=== PATIENT | male | born 1940 | race Caucasian/White ===

== ENCOUNTER → 2019-09-01 10:49 | Outpatient (BNVA) | payer MEDICARE, OTHER, SELFPAY | PROVIDERS: Family Provider Family Medicine; PCP Family Medicine; Visit Provider Urology | DX: N13.8 Other obstructive and reflux uropathy (principal); N40.1 Benign prostatic hyperplasia with lower urinary tract symptoms | CPT/HCPCS: 81001 ==

== ENCOUNTER → 2019-09-21 10:03 | Outpatient (BNVA) | payer MEDICARE, OTHER, SELFPAY | PROVIDERS: Family Provider Family Medicine; PCP Family Medicine; Visit Provider Registered Nurse | DX: I10 Essential (primary) hypertension (principal); E78.5 Hyperlipidemia, unspecified | CPT/HCPCS: 80053; 80061; 85025 ==

== ENCOUNTER → 2020-01-07 11:33 | Outpatient (BNVA) | payer MEDICARE, OTHER, SELFPAY | PROVIDERS: Family Provider Family Medicine; PCP Family Medicine; Visit Provider Nurse Practitioner Family | DX: R50.9 Fever, unspecified (principal); R05 Cough | CPT/HCPCS: 87635 ==

== ENCOUNTER 2020-01-15 14:18 | Emergency (ER) | payer MEDICARE, OTHER, SELFPAY ==
[2020-01-15] VITALS (11 sets, daily range): BP systolic 99–140; BP diastolic 69–120; PULSE 100–141; RESP 14–30; TEMP 36.9; O2SAT 88–100; BMI 24.4
--- NOTE | 2020-01-15 14:26 | ED_ITS ---
HPI - SOB/Dyspnea General: Chief Complaint: Shortness of Breath/Dyspnea Stated Complaint: COVID POS; RESP DISTRESS Time Seen by Provider: 01/15/20 14:25 History of Present Illness: HPI Narrative: 79-year-old male presents presents via EMS 1 week ago he tested positive for COVID he has been very short of breath. Satting into the mid 80s. He is symptomatically short of breath. He is in A. fib with RVR. He has had this in the past. He has also had a lot of diarrhea he has been able to take fluids well. MD elicited complaint: shortness of breath and cough Pertinent past history: other (COVID-19 infection) Onset (ago): week(s) (1) Context: other (COVID-19) Timing: constant Severity: severe Exacerbating factors: exertion Relieving factors: oxygen and rest Associated symptoms: Reports chest congestion, cough, fever(s) and nausea; Deny abdominal pain, chest pain, diaphoresis, dizziness, extremity pain, hemoptysis, lightheadedness, myalgias, orthopnea, palpitations, paresthesias, polydipsia, polyuria, rash, sense of impending doom, syncope or vomiting Treatment prior to arrival: oxygen Review of Systems Const: Reports: fever(s); Denies: diaphoresis ENMT: Denies: throat pain, ear or mastoid pain, nasal discharge or nasal congestion Card: Denies: chest pain, palpitations, lightheadedness, syncope or orthopnea Resp: Reports: dyspnea, productive cough, wheezing and chest congestion; Denies: hemoptysis GI: Reports: nausea; Denies: abdominal pain or vomiting : Denies: flank pain, dysuria, urinary frequency or urinary urgency Musc: Denies: extremity pain Skin/Breast: Denies: rash or pruritus Neuro: Denies: dizziness Endo: Denies: polyuria or polydipsia PFSH ED PFSH: Medical History BPH (benign prostatic hyperplasia) Coronary artery disease Essential hypertension Hyperlipidemia Obstructive sleep apnea Surgical History Hx of heart artery stent Hx of tonsillectomy Family History Mother , at age 65 Heart disease Father , in WW 2 No problems noted. Social History Smoking and tobacco status: never smoked Alcohol intake: never Marital status: Current occupational status: retired History of recent travel: No Physical Exam Const: GENERAL APPEARANCE: cooperative and comfortable ORIENTATION/CONSCIOUSNESS: Yes awake, Yes oriented to person, Yes oriented to place and Yes oriented to time HENMT: COMMON NORMALS: normocephalic, atraumatic and hearing grossly normal bilaterally HEAD & SCALP: normocephalic and atraumatic Neck/C-Spine: COMMON NORMALS: no JVD Lymph: LYMPHATIC: no lymphadenopathy noted and no lymphedema noted Resp: EFFORT & INSPECTION: No able to speak in complete sentences, Yes tachypneic, Yes labored, Yes retractions and Yes uses accessory muscles AUSCULTATION: rhonchi and wheezes Cardio: COMMON NORMALS: no JVD and No murmurs present (Cardio) RATE: tachycardic RHYTHM: abnormal rhythm irregularly irregular GI: COMMON NORMALS: Soft to palpation and No hepatosplenomegaly present AUSCULTATION: Yes normoactive bowel sounds PALPATION: Yes Soft to palpation, No Tenderness to palpation present (GI), No Guarding due to palpation present (GI) and Yes No hepatosplenomegaly present Extremity: COMMON NORMALS: normal to inspection, capillary refill normal, no clubbing, cyanosis or edema, no calf tenderness and no pedal edema Neuro: SENSORIUM/ORIENTATION: Yes oriented to person, Yes oriented to place and Yes oriented to time Skin: COMMON NORMALS: no rashes or lesions noted GENERAL SKIN EXAM: no rashes or lesions noted Procedures Intubation Time out performed: Yes sedative: Etomidate paralytic: Succinylcholine Laryngoscope: fiber optic video scope Assist Device Used: fiber optic device ET Tube Size: 8 ET Tube Uncuffed: No Tube Secured Depth (cm): 22 Tube Secured Location: teeth Tube Placement Confirmation: visualized tube passing through cords, equal breath sounds bilaterally and no breath sounds over epigastrium Patient Tolerated Procedure: well Intubation Complications: none Course Vital Signs: Vital signs: Vital Signs Temperature 98.4 F 01/15/20 14:36 Pulse Rate 141 H 01/15/20 21:50 Respiratory Rate 21 H 01/15/20 21:50 Blood Pressure 115/69 01/15/20 21:50 Pulse Oximetry 95 01/15/20 21:50 MDM - SOB/Dyspnea Lab Data: Labs: Lab Results 01/15/20 01/15/20 01/15/20 Range/Units 13:45 13:45 13:45 WBC 22.9 H (4.0-10.0) 10^3/ uL RBC 4.70 (4.1-5.3) 10^6/u L Hgb 14.6 (11.7-16.6) g/dL Hct 42.2 (42.0-52.0) % MCV 89.8 (80-94) fL MCH 31.1 (28.0-34.0) pg MCHC 34.6 (30.0-36.0) g/dL RDW 12.3 (12.1-15.1) % Plt Count 332 (130-400) 10^3/c mm MPV 10.4 (7.4-10.4) fL Neut % (Auto) 91.5 % Lymph % (Auto) 2.1 % [place] % (Auto) 4.8 % Eos % (Auto) 0.0 % Baso % (Auto) 0.3 % Neut # (Auto) 20.96 H (1.8-7.7) 10^3/u L Lymph # (Auto) 0.5 L (0.8-4.8) 10^3/u L [place] # (Auto) 1.1 H (0.2-0.9) 10^3/u L Eos # (Auto) 0.0 (0.0-0.8) 10^3/u L Baso # (Auto) 0.1 (0.0-0.1) 10^3/u L Nucleated RBC % (a uto) 0 % Nucleated RBCs # 0.0 /100WBC PT 16.00 H (12.1-14.9) SECO NDS INR 1.24 H (0.8-1.2) APTT 37.4 H (23.9-36.7) SECO NDS Fibrinogen 996 H (174-498) mg/dL D-Dimer 2.22 H (0-0.59) ug/mIFE U Specimen Type Sample Site ABG pH (7.35-7.45) ABG pCO2 (35-45) mmHg ABG pO2 (80.0-100.0) mmH g ABG HCO3 (22-26) mmol/L ABG O2 Saturation ABG Base Excess (-2.0-2.0) mmol/ L Eber Test A-a O2 Gradient (5-10) mmHg Hematocrit (42-52) % Hgb O2 Saturation (95-100) % Carboxyhemoglobin (0.4-20.1) %THgb Methemoglobin (0.4-1.5) % Total Hemoglobin (14-18) g/dL Ionized Calcium (1.1-1.4) mmol/L O2 Delivery Device O2 Liters/Min % FiO2 % General Practitioner ID Sodium 130 L (136-145) mmol/L Potassium 3.9 (3.5-5.1) mmol/L Chloride 95 L (98-107) mmol/L Carbon Dioxide 17 L (22-29) mmol/L Anion Gap 21.9 H (5-19) BUN 34 H (8-23) mg/dL Creatinine 1.1 (0.7-1.2) mg/dL GFR Calculation Not Reportable Glucose 142 H (65-115) mg/dL Calculated Osmolal ity 280 L (285-295) mOsm/k g Lactic Acid (0.5-2.2) mmol/L Lactic Acid (Sepsi s) (0.5-2.2) mmol/L Calcium 9.0 (8.5-10.5) mg/dL Total Bilirubin 0.6 (0.15-1.2) mg/dL AST 137 H (0-40) U/L ALT 132 H (0-41) U/L Alkaline Phosphata se 103 (40-130) IU/L Lactate Dehydrogen ase 518 H (135-225) U/L Troponin T Baselin e (0-15) ng/L Troponin T 120 Min emmonak (0-15) ng/L Delta Troponin T (0-10) ABS# C-Reactive Protein 381.3 H (0.0-4.9) mg/L Total Protein 6.5 L (6.6-8.7) g/dL Albumin 3.0 L (3.5-5.2) g/dL Globulin 3.5 (1.3-4.6) g/dL Procalcitonin 2.61 H (0-0.5) ng/mL 01/15/20 01/15/20 01/15/20 Range/Units 14:20 14:50 15:30 WBC (4.0-10.0) 10^3/ uL RBC (4.1-5.3) 10^6/u L Hgb (11.7-16.6) g/dL Hct (42.0-52.0) % MCV (80-94) fL MCH (28.0-34.0) pg MCHC (30.0-36.0) g/dL RDW (12.1-15.1) % Plt Count (130-400) 10^3/c mm MPV (7.4-10.4) fL Neut % (Auto) % Lymph % (Auto) % [place] % (Auto) % Eos % (Auto) % Baso % (Auto) % Neut # (Auto) (1.8-7.7) 10^3/u L Lymph # (Auto) (0.8-4.8) 10^3/u L [place] # (Auto) (0.2-0.9) 10^3/u L Eos # (Auto) (0.0-0.8) 10^3/u L Baso # (Auto) (0.0-0.1) 10^3/u L Nucleated RBC % (a uto) % Nucleated RBCs # /100WBC PT (12.1-14.9) SECO NDS INR (0.8-1.2) APTT (23.9-36.7) SECO NDS Fibrinogen (174-498) mg/dL D-Dimer (0-0.59) ug/mIFE U Specimen Type Arterial Arterial Sample Site Radial, right Radial, right ABG pH 7.54 H 7.56 H (7.35-7.45) ABG pCO2 24.1 L 23.4 L (35-45) mmHg ABG pO2 52.8 L 73.2 L (80.0-100.0) mmH g ABG HCO3 20.6 L 21.1 L (22-26) mmol/L ABG O2 Saturation 93.7 ABG Base Excess -0.2 0.7 (-2.0-2.0) mmol/ L Eber Test Pos Pos A-a O2 Gradient 32.5 H (5-10) mmHg Hematocrit 45.8 43.3 (42-52) % Hgb O2 Saturation 92.7 L (95-100) % Carboxyhemoglobin 0.3 L (0.4-20.1) %THgb Methemoglobin 0.8 (0.4-1.5) % Total Hemoglobin 14.1 (14-18) g/dL Ionized Calcium 1.1 (1.1-1.4) mmol/L O2 Delivery Device Nc Bipap O2 Liters/Min 5.0 % FiO2 50.0 % General Practitioner ID Broma Broma Sodium 130.0 L (136-145) mmol/L Potassium 3.9 (3.5-5.1) mmol/L Chloride (98-107) mmol/L Carbon Dioxide (22-29) mmol/L Anion Gap (5-19) BUN (8-23) mg/dL Creatinine (0.7-1.2) mg/dL GFR Calculation Glucose 130.0 H (65-115) mg/dL Calculated Osmolal ity (285-295) mOsm/k g Lactic Acid 3.6 H (0.5-2.2) mmol/L Lactic Acid (Sepsi s) (0.5-2.2) mmol/L Calcium (8.5-10.5) mg/dL Total Bilirubin (0.15-1.2) mg/dL AST (0-40) U/L ALT (0-41) U/L Alkaline Phosphata se (40-130) IU/L Lactate Dehydrogen ase (135-225) U/L Troponin T Baselin e (0-15) ng/L Troponin T 120 Min [place] (0-15) ng/L Delta Troponin T (0-10) ABS# C-Reactive Protein (0.0-4.9) mg/L Total Protein (6.6-8.7) g/dL Albumin (3.5-5.2) g/dL Globulin (1.3-4.6) g/dL Procalcitonin (0-0.5) ng/mL 01/15/20 01/15/20 01/15/20 Range/Units 17:54 17:54 19:20 WBC (4.0-10.0) 10^3/ uL RBC (4.1-5.3) 10^6/u L Hgb (11.7-16.6) g/dL Hct (42.0-52.0) % MCV (80-94) fL MCH (28.0-34.0) pg MCHC (30.0-36.0) g/dL RDW (12.1-15.1) % Plt Count (130-400) 10^3/c mm MPV (7.4-10.4) fL Neut % (Auto) % Lymph % (Auto) % [place] % (Auto) % Eos % (Auto) % Baso % (Auto) % Neut # (Auto) (1.8-7.7) 10^3/u L Lymph # (Auto) (0.8-4.8) 10^3/u L [place] # (Auto) (0.2-0.9) 10^3/u L Eos # (Auto) (0.0-0.8) 10^3/u L Baso # (Auto) (0.0-0.1) 10^3/u L Nucleated RBC % (a uto) % Nucleated RBCs # /100WBC PT (12.1-14.9) SECO NDS INR (0.8-1.2) APTT (23.9-36.7) SECO NDS Fibrinogen (174-498) mg/dL D-Dimer (0-0.59) ug/mIFE U Specimen Type Sample Site ABG pH (7.35-7.45) ABG pCO2 (35-45) mmHg ABG pO2 (80.0-100.0) mmH g ABG HCO3 (22-26) mmol/L ABG O2 Saturation ABG Base Excess (-2.0-2.0) mmol/ L Eber Test A-a O2 Gradient (5-10) mmHg Hematocrit (42-52) % Hgb O2 Saturation (95-100) % Carboxyhemoglobin (0.4-20.1) %THgb Methemoglobin (0.4-1.5) % Total Hemoglobin (14-18) g/dL Ionized Calcium (1.1-1.4) mmol/L O2 Delivery Device O2 Liters/Min % FiO2 % General Practitioner ID Sodium (136-145) mmol/L Potassium (3.5-5.1) mmol/L Chloride (98-107) mmol/L Carbon Dioxide (22-29) mmol/L Anion Gap (5-19) BUN (8-23) mg/dL Creatinine (0.7-1.2) mg/dL GFR Calculation Glucose (65-115) mg/dL Calculated Osmolal ity (285-295) mOsm/k g Lactic Acid (0.5-2.2) mmol/L Lactic Acid (Sepsi s) 2.9 H (0.5-2.2) mmol/L Calcium (8.5-10.5) mg/dL Total Bilirubin (0.15-1.2) mg/dL AST (0-40) U/L ALT (0-41) U/L Alkaline Phosphata se (40-130) IU/L Lactate Dehydrogen ase (135-225) U/L Troponin T Baselin e 256 H* (0-15) ng/L Troponin T 120 Min em[place] 209.7 H (0-15) ng/L Delta Troponin T -46.3 L (0-10) ABS# C-Reactive Protein (0.0-4.9) mg/L Total Protein (6.6-8.7) g/dL Albumin (3.5-5.2) g/dL Globulin (1.3-4.6) g/dL Procalcitonin (0-0.5) ng/mL Critical Care Time Critical Care Time: Critical Care Time: Yes Total Critical Care Time: 90 Attestation: This case had a high probability of a clinically significant, sudden, or life threatening deterioration of this patient's condition which required my full and direct attention, intervention and personal management. Discharge Plan Discharge Patient Disposition: Xfer Short-Term Hosp Clinical Impression: COVID-19 virus infection, Secondary bacterial pneumonia Referrals: Nick Middleton Jr, MD [Primary Care Provider] - Interventions: ED Discharge Assessment Last Done: 01/15/20 21:50 ED Charges Last Done: 01/15/20 21:50 Discharge Date/Time: 01/15/20 21:54 Coding Level of Care Code ED Stitching Department Supervisor for Aleisha Fwd Exam Comprehensive
--- NOTE | 2020-01-15 14:27 | XRR_ITS ---
PROCEDURE INFORMATION: Exam: XR Chest, 1 View Exam date and time: 01/15/2020 2:29 PM Age: 79 years old Clinical indication: Cough; Additional info: Cough, covid-19 infection TECHNIQUE: Imaging protocol: XR of the chest Views: 1 view. COMPARISON: No relevant prior studies available. FINDINGS: Lungs: Patchy interstitial and alveolar airspace disease most pronounced in the perihilar regions and lung bases right greater than left. Edema and/or pneumonia. Emphysema Pleural space: Unremarkable. No pleural effusion. No pneumothorax. Heart/Mediastinum: Unremarkable. No cardiomegaly. Bones/joints: Unremarkable. XR/XR chest 1V portable [id number] IMPRESSION: Patchy interstitial and alveolar airspace disease most pronounced in the perihilar regions and lung bases right greater than left. Edema and/or pneumonia. Covid within the differential diagnosis.
[2020-01-15 14:36] LABS: ABG PCO2 24.1 mmHg (35-45); ABG PH Result 7.54 (7.35-7.45); Arterial Blood Gas Hematocrit 45.8 % (42-52); Base Excess ABG -0.2 mmol/L (-2.0-2.0); Blood Gas Allen Test Pos; Blood Gas Operator Identificat BROMA; Blood Gas Sample Site Radial, right; Blood Gas Sample Type Arterial; HCO3 ABG 20.6 mmol/L (22-26); Oxygen Device NC; PO2 ABG 52.8 mmHg (80.0-100.0)
[2020-01-15 14:51] LABS: INR 1.24 (0.8-1.2)
[2020-01-15 14:52] LABS: Partial Thromboplastin Time 37.4 SECONDS (23.9-36.7)
[2020-01-15 14:55] LABS: Basophils # 0.1 10^3/uL (0.0-0.1); Basophils % 0.3 %; Hematocrit 42.2 % (42.0-52.0); Hemoglobin 14.6 g/dL (11.7-16.6); Lymphocytes # 0.5 10^3/uL (0.8-4.8); Lymphocytes % 2.1 %; Mean Corpuscular HGB Conc 34.6 g/dL (30.0-36.0); Mean Corpuscular Hemoglobin 31.1 pg (28.0-34.0); Mean Corpuscular Volume 89.8 fL (80-94); Mean Platelet Volume 10.4 fL (7.4-10.4); Monocytes # 1.1 10^3/uL (0.2-0.9); Monocytes % 4.8 %; Neutrophils # 20.96 10^3/uL (1.8-7.7); Neutrophils % 91.5 %; Nucleated Red Blood Cells % 0 %; Platelet Count 332 10^3/cmm (130-400); Red Cell Distribution Width 12.3 % (12.1-15.1); White Blood Count 22.9 10^3/uL (4.0-10.0)
[2020-01-15 14:56] LABS: D Dimer 2.22 ug/mIFEU (0-0.59)
[2020-01-15 14:58] LABS: Fibrinogen 996 mg/dL (174-498)
[2020-01-15 15:16] LABS: Procalcitonin 2.61 ng/mL (0-0.5)
[2020-01-15 15:27] LABS: Alanine Aminotransferase 132 U/L (0-41); Alkaline Phosphatase 103 IU/L (40-130); Anion Gap 21.9 (5-19); Aspartate Amino Transferase 137 U/L (0-40); Blood Urea Nitrogen 34 mg/dL (8-23); Carbon Dioxide 17 mmol/L (22-29); Chloride 95 mmol/L (98-107); Globulin 3.5 g/dL (1.3-4.6); Glucose 142 mg/dL (65-115); Lactate Dehydrogenase 518 U/L (135-225); Osmolality Calculated 280 mOsm/kg (285-295); Potassium 3.9 mmol/L (3.5-5.1); Sodium 130 mmol/L (136-145); Total Bilirubin 0.6 mg/dL (0.15-1.2); Total Protein 6.5 g/dL (6.6-8.7)
[2020-01-15] MEDS: dexamethasone 4 mg/mL INJ 6 MG IVP (15:29)
[2020-01-15] MEDS: sodium chloride 0.9% 500 ML 999 ML IV (15:30)
[2020-01-15 15:40] LABS: C Reactive Protein 381.3 mg/L (0.0-4.9)
[2020-01-15 15:46] LABS: ABG PCO2 23.4 mmHg (35-45); ABG PH Result 7.56 (7.35-7.45); Alveolar-Arterial Oxygen Gradi 32.5 mmHg (5-10); Arterial Blood Gas Hematocrit 43.3 % (42-52); Base Excess ABG 0.7 mmol/L (-2.0-2.0); Blood Gas Allen Test Pos; Blood Gas Operator Identificat BROMA; Blood Gas Sample Site Radial, right; Blood Gas Sample Type Arterial; Carboxyhemoglobin 0.3 %THgb (0.4-20.1); HCO3 ABG 21.1 mmol/L (22-26); HGB O2 Sat 92.7 % (95-100); Ionized Calcium Level - ABG 1.1 mmol/L (1.1-1.4); Methemoglobin 0.8 % (0.4-1.5); Oxygen Device BIPAP; Oxygen Saturation ABG 93.7; PO2 ABG 73.2 mmHg (80.0-100.0); Potassium Level - ABG 3.9 mmol/L (3.5-5.0); Total Hemoglobin 14.1 g/dL (14-18)
[2020-01-15 15:51] LABS: Lactic Sepsis W/Reflex 3.6 mmol/L (0.5-2.2)
[2020-01-15 16:12] LABS: Reflex Lactate Order REFLEX LACTIC ORDERD
--- NOTE | 2020-01-15 16:13 | CTR_ITS ---
PROCEDURE INFORMATION: Exam: CT Angiography Chest With Contrast Exam date and time: 01/15/2020 5:10 PM Age: 79 years old Clinical indication: Shortness of breath; Patient HX: Covid++ w resp distress; Additional info: Dyspnea TECHNIQUE: Imaging protocol: Computed tomographic angiography of the chest with intravenous contrast. 3D rendering (Not supervised by radiologist): MIP and/or 3D reconstructed images were created by the technologist. Radiation optimization: All CT scans at this facility use at least one of these dose optimization techniques: automated exposure control; mA and/or kV adjustment per patient size (includes targeted exams where dose is matched to clinical indication); or iterative reconstruction. Contrast material: OMNI 350; Contrast volume: 95 ml; Contrast route: INTRAVENOUS (IV); COMPARISON: CR (CHEST, ) 01/15/2020 2:30 PM RADIATION DOSE METRICS: Total DLP (mGy-cm): 632.63 FINDINGS: Pulmonary arteries: No visible pulmonary embolism/pulmonary arterial thrombus. Aorta: The thoracic aorta is nonaneurysmal. Moderate arterial sclerotic disease. Lungs: Bilateral pneumonitis/pneumonia composed of predominantly diffuse ground-glass interstitial lung disease with early honeycombing. Pleural space: Bilateral scant pleural effusions. Heart: Advanced 3 vessel coronary artery disease. Cardiomegaly. Left ventricular prominence. No visible pericardial effusion. Lymph nodes: Few marginally prominent mediastinal and hilar lymph nodes potentially reactive. Evidence of antecedent granulomatous disease. Liver: Simple hepatic cysts. Tiny focus of nonobstructing calyceal nephrolithiasis right kidney under 2 mm. Bones/joints: Age-appropriate degenerative disease and degenerative disc disease of the spine with spondylosis deformans. Soft tissues: Unremarkable. Other findings: Motion artifact. CT/CT angio chest PE protcl [id number] IMPRESSION: 1. Currently no visible pulmonary embolism/pulmonary arterial thrombus. 2. Bilateral pneumonitis/pneumonia. 3. Advanced 3 vessel coronary artery disease. 4. Cardiomegaly. Radiation Dose CTDIVOL = (mGy): DLP = 632.63 (mGy-cm)
[2020-01-15] MEDS: iohexol 350 mg/mL 100 mL Btl IV (17:34)
--- NOTE | 2020-01-15 17:40 | ECG_ITS ---
[facility] Test Date: 2020-01-15 Pat Name: Jong Higuera Department: Room: Gender: Male Hoop Coiler: : 1940 Requested By: Tay March Order Number: [id number] Rudi MD: Zoraida Enrique M.D. Measurements Intervals [place] Rate: 127 P: VA: -1 QRS: 106 QRSD: 142 T: -40 QT: 335 QTc: 488 Interpretive Statements ATRIAL FIBRILLATION WITH RAPID VENTRICULAR RESPONSE MARKED RIGHT AXIS DEVIATION [QRS AXIS > 100] RIGHT BUNDLE BRANCH BLOCK [120+ ms QRS DURATION, UPRIGHT V1, 40+ ms S IN I/aVL/V4/V5/V6] ST DEVIATION AND MODERATE T-WAVE ABNORMALITY, CONSIDER INFERIOR ISCHEMIA [-0.1+ mV T WAVE IN II/aVF] No previous ECG available for comparison Electronically Signed On 01-16-2020 19:08:19 CDT by Zoraida Enrique M.D. [id number]
[2020-01-15 18:24] LABS: Lactic Acid level (Lactate) 2.9 mmol/L (0.5-2.2)
--- NOTE | 2020-01-15 18:50 | ECG_ITS ---
[facility] Test Date: 2020-01-15 Pat Name: Jong Higuera Department: Room: Gender: Male Braille Translator: : 1940 Requested By: Tay March Order Number: [id number] Rudi MD: Zoraida Enrique M.D. Measurements Intervals [place] Rate: 123 P: VT: -1 QRS: 108 QRSD: 134 T: -32 QT: 342 QTc: 490 Interpretive Statements ATRIAL FIBRILLATION WITH RAPID VENTRICULAR RESPONSE WITH ABERRANT CONDUCTION OR VENTRICULAR PREMATURE COMPLEXES MARKED RIGHT AXIS DEVIATION [QRS AXIS > 100] RIGHT BUNDLE BRANCH BLOCK [120+ ms QRS DURATION, UPRIGHT V1, 40+ ms S IN I/aVL/V4/V5/V6] MODERATE T-WAVE ABNORMALITY, CONSIDER INFERIOR ISCHEMIA [-0.1+ mV T WAVE IN II/aVF] Compared to ECG 01/15/2020 14:24:50 Ventricular premature complex(es) now present Aberrant conduction of supraventricular beat(s) now present T-wave abnormality still present Possible ischemia still present Electronically Signed On 01-16-2020 19:09:59 CDT by Zoraida Enrique M.D. [id number]
[2020-01-15] MEDS: heparin 5,000 unit/mL INJ 1 mL 4000 UNIT IVP (18:57)
[2020-01-15] MEDS: levofloxacin-dextrose 5 % 750 MG/150 ML PREMIX 100 MG IV (19:33)
[2020-01-15 19:54] LABS: Troponin(5th) Baseline 256 ng/L (0-15)
[2020-01-15] MEDS: succinylcholine 20 mg/mL SDV 10mL 100 MG IVP (20:00)
[2020-01-15] MEDS: vecuronium 10 mg SDV IVP (20:01)
[2020-01-15 20:43] LABS: Troponin 5 2HR 209.7 ng/L (0-15)
--- NOTE | 2020-01-15 20:57 | PC.NURSE ---
2000 PT WAS INTUBATED WITH A #8 TUBE AND IT WAS SECURED 21 AT THE TEETH.
== END 2020-01-15 21:54 | disposition short-term general hospital (02) ==
PROVIDERS: Emergency Provider Family Medicine; PCP Family Medicine
DX: U07.1 COVID-19 (principal); J15.9 Unspecified bacterial pneumonia; I25.10 Atherosclerotic heart disease of native coronary artery without angina pectoris; I10 Essential (primary) hypertension; E78.5 Hyperlipidemia, unspecified; G47.33 Obstructive sleep apnea (adult) (pediatric); R06.02 Shortness of breath
CPT/HCPCS: 12345; 31500; 36600; 51702; 71045; 71275; 80051; 80053; 82803; 82810; 83605; 83615; 83986; 84145; 84484; 85025; 85378; 85384; 85610; 85730; 86140; 87040; 93005; 94002; 94660; 96365; 96366; 96367; 96368; 96375; 99283; 99291; J0330; J1100; J1644; J1956; J2250; J3010; J3490; J7040; Q9967

== ENCOUNTER 2020-02-21 09:50 | Outpatient (CLI) | payer MEDICARE, OTHER, SELFPAY | END 2020-02-21 09:51 | disposition home or self-care (01) | LOC: WOUND 09:51 | PROVIDERS: PCP Family Medicine; Visit Provider Nurse Practitioner Family | DX: E11.622 Type 2 diabetes mellitus with other skin ulcer (principal); L98.492 Non-pressure chronic ulcer of skin of other sites with fat layer exposed | CPT/HCPCS: 11042; 87070; 87077; 87176; 87186; 87205 ==

== ENCOUNTER → 2020-02-25 11:38 | Outpatient (BNVA) | payer MEDICARE, OTHER, SELFPAY | PROVIDERS: PCP Family Medicine; Visit Provider Registered Nurse | DX: L98.499 Non-pressure chronic ulcer of skin of other sites with unspecified severity (principal) | CPT/HCPCS: 85025 ==

== ENCOUNTER 2020-02-28 10:31 | Outpatient (CLI) | payer MEDICARE, OTHER, SELFPAY | END 2020-02-28 10:32 | disposition home or self-care (01) | LOC: WOUND 10:32 | PROVIDERS: PCP Family Medicine; Visit Provider Nurse Practitioner Family | DX: E11.622 Type 2 diabetes mellitus with other skin ulcer (principal); L98.492 Non-pressure chronic ulcer of skin of other sites with fat layer exposed | CPT/HCPCS: 11042 ==

== ENCOUNTER 2020-03-06 10:57 | Outpatient (CLI) | payer MEDICARE, OTHER, SELFPAY | END 2020-03-06 10:58 | disposition home or self-care (01) | LOC: WOUND 10:57 | PROVIDERS: PCP Family Medicine; Visit Provider Nurse Practitioner Family | DX: E11.622 Type 2 diabetes mellitus with other skin ulcer (principal); L98.492 Non-pressure chronic ulcer of skin of other sites with fat layer exposed | CPT/HCPCS: 11042 ==

== ENCOUNTER 2020-03-13 10:58 | Outpatient (CLI) | payer MEDICARE, OTHER, SELFPAY | END 2020-03-13 10:59 | disposition home or self-care (01) | LOC: WOUND 10:59 | PROVIDERS: Visit Provider Nurse Practitioner Family | DX: E11.622 Type 2 diabetes mellitus with other skin ulcer (principal); L98.492 Non-pressure chronic ulcer of skin of other sites with fat layer exposed | CPT/HCPCS: 11042 ==

== ENCOUNTER → 2020-03-20 09:50 | Outpatient (BNVA) | payer MEDICARE, OTHER, SELFPAY | PROVIDERS: Visit Provider Internal Medicine Cardiovascular Disease | DX: I10 Essential (primary) hypertension (principal); I48.91 Unspecified atrial fibrillation; E78.2 Mixed hyperlipidemia; G47.33 Obstructive sleep apnea (adult) (pediatric) | CPT/HCPCS: 80053; 83880; 84443 ==

== ENCOUNTER 2020-03-23 10:04 | Outpatient (CLI) | payer MEDICARE, SELFPAY | END 2020-03-23 10:05 | disposition home or self-care (01) | LOC: WOUND 10:05 | PROVIDERS: Visit Provider Nurse Practitioner Family | DX: Z09 Encounter for follow-up examination after completed treatment for conditions other than malignant neoplasm (principal) | CPT/HCPCS: G0463 ==

== ENCOUNTER → 2020-04-20 09:14 | Outpatient (BNVA) | payer MEDICARE, OTHER, SELFPAY | PROVIDERS: PCP Registered Nurse; Visit Provider Registered Nurse | DX: J06.9 Acute upper respiratory infection, unspecified (principal) | CPT/HCPCS: 85025 ==

== ENCOUNTER → 2020-06-22 10:32 | Outpatient (BNVA) | payer MEDICARE, OTHER, SELFPAY | PROVIDERS: PCP Registered Nurse; Visit Provider Registered Nurse | DX: I10 Essential (primary) hypertension (principal); I48.91 Unspecified atrial fibrillation; E78.2 Mixed hyperlipidemia | CPT/HCPCS: 80053; 80061; 85025 ==

== ENCOUNTER 2020-07-24 14:35 | Outpatient (CLI) | payer MEDICARE, OTHER, SELFPAY ==
--- NOTE | 2020-07-24 15:00 | USCV_ITS ---
Jong Higuera Age: 80 Gender: M : 1940 Exam Date: 07/24/2020 15:03 Ordering Phys: Jazmine Anglin MD ([email or web address]) Technologist: Jacobo Owen Exam Location: [facility] [place] Indication: CAD BP: / HR: Rhythm: Sinus Technical Quality: Fair MEASUREMENTS (Male / Female) Normal Values 2D ECHO LV Diastolic Diameter PLAX 4.8 cm 4.2 - 5.9 / 3.9 - 5.3 cm LV Systolic Diameter PLAX 2.7 cm IVS Diastolic Thickness 1.7 cm 0.6 - 1.0 / 0.6 - 0.9 cm IVS Systolic Thickness 2.4 cm LVPW Diastolic Thickness 1.5 cm 0.6 - 1.0 / 0.6 - 0.9 cm LVPW Systolic Thickness 1.7 cm LVOT Diameter 2.0 cm LV Ejection Fraction 2D Teich 75.1 % LV Ejection Fraction MOD 2C 71.5 % LV Ejection Fraction 2C AL 72.1 % LA Diameter 4.2 cm LA Width 4.8 cm LA Height 5.8 cm RA Width 4.0 cm RA Height 5.7 cm Aorta at Sinotubular Diameter 2.8 cm M-MODE LV Diastolic Diameter MM 5.1 cm 4.2 - 5.9 / 3.9 - 5.3 cm LV Systolic Diameter MM 3.2 cm LV Ejection Fraction MM Teich 67.8 % IVS Diastolic Thickness MM 0.9 cm 0.6 - 1.0 / 0.6 - 0.9 cm IVS Systolic Thickness MM 1.5 cm LVPW Diastolic Thickness MM 1.3 cm 0.6 - 1.0 / 0.6 - 0.9 cm LVPW Systolic Thickness MM 1.6 cm RV Diastolic Diameter MM 1.3 cm Aortic Annulus Diameter 3.8 cm LA Ao Ratio MM 1.1 MV E Point Septal Separation 1.2 cm DOPPLER AV Peak Velocity 178.0 cm/s LVOT Peak Velocity 91.0 cm/s AV Area Cont Eq vti 1.8 cm squared AV Area Cont Eq pk 1.6 cm squared MV Area PHT 5.0 cm squared Mitral E to A Ratio 2.4 MV E' Velocity 76.0 cm/s Mitral E to LV E' Septal Ratio 9.0 TR Peak Velocity 306.0 cm/s TR Peak Gradient 37.5 mmHg TV Peak E Velocity 111.0 cm/s Right Atrial Pressure 3.0 mmHg Pulmonary Artery Systolic Pressu 40.5 mmHg PV Peak Velocity 90.0 cm/s FINDINGS Left Ventricle Normal left ventricular size, systolic function and mildly increased wall thickness, with no diagnostic regional wall motion abnormalities. Left ventricular ejection fraction is estimated at 65 %. Grade II diastolic dysfunction, moderately elevated filling pressures. Right Ventricle Normal right ventricular size and systolic function. Right ventricular systolic pressure 44 mmHg. Right Atrium Normal right atrial size. Left Atrium Mildly increased left atrial size. Mitral Valve Mild mitral annular calcification. Thickened mitral valve. No mitral valve stenosis. Mild mitral valve regurgitation. Aortic Valve Structurally normal trileaflet aortic valve. No aortic valve stenosis. Mild aortic valve regurgitation. Tricuspid Valve Structurally normal tricuspid valve. No tricuspid valve stenosis. Mild tricuspid valve regurgitation. Pulmonic Valve Pulmonic valve not well visualized. Trace pulmonary valve regurgitation. Pericardium No pericardial effusion. Aorta Normal size aortic root and proximal ascending aorta. CONCLUSIONS 1. Normal left ventricular size, systolic function and mildly increased wall thickness, with no diagnostic regional wall motion abnormalities. Left ventricular ejection fraction is estimated at 65 %. Grade II diastolic dysfunction, moderately elevated filling pressures. 2. Normal right ventricular size and systolic function. 3. Mild pulmonary hypertension with pulmonary artery pressure estimated at 44 mm Hg. 4. Mild mitral and tricuspid valve regurgitation. 5. Mild aortic valve regurgitation. 6. No prior similar studies to compare. Jazmine Anglin MD (Electronically Signed) Final Date: 30 July 2020 11:50 S
== END 2020-07-24 14:36 | disposition home or self-care (01) ==
PROVIDERS: PCP Registered Nurse; Visit Provider Internal Medicine Cardiovascular Disease
DX: I50.9 Heart failure, unspecified (principal); I48.91 Unspecified atrial fibrillation; I25.10 Atherosclerotic heart disease of native coronary artery without angina pectoris; I27.20 Pulmonary hypertension, unspecified; I08.3 Combined rheumatic disorders of mitral, aortic and tricuspid valves
CPT/HCPCS: 93306

== ENCOUNTER 2020-07-25 10:31 | Outpatient (CLI) | payer MEDICARE, OTHER, SELFPAY ==
--- NOTE | 2020-07-25 14:30 | CT_ITS ---
WS: [id number] CT ABDOMEN PELVIS TECHNIQUE: Noncontrast CT of the abdomen and pelvis with coronal and sagittal reformatted images. CLINICAL INFORMATION: K35.80 - Unspecified acute appendicitis COMPARISON: None. DLP: 1614.[address] scans at [facility] use at least one of these dose optimization techniques: automat ed exposure control; mA and/or kV adjustment per patient size (includes targeted exams where dose is matched to clinical indication); or iterative reconstruction. FINDINGS: Fluid-filled dilated appendix in the right lower quadrant with surrounding inflammation and edema. Fi ndings consistent with acute appendicitis. No evidence of drainable abscess or fluid collection. Smal l amount of free fluid in the pelvis. Numerous hepatic cysts the largest in the dome of the liver measuring 5.1 CM. Tiny bilateral pleural effusions with bibasilar atelectasis. Small esophageal hiatal hernia. Adrenal glands are normal. No h ydronephrosis. Small right renal cyst. Normal caliber abdominal aorta. Tiny fat-containing umbilical hernia. Mild spondylitic changes lumbar spine. CT/CT abdomen pelvis wo con [id number] IMPRESSION: 1. Fluid-filled dilated appendix with surrounding inflammatory stranding and e dann consistent with acute appendicitis. No evidence of drainable abscess or fl uid collection. 2. Multiple hepatic cysts. 3. Tiny pleural effusions with bibasilar atelectasis. Notified VIJAY Monroe at 07/25/2020 1:13 PM.
== END 2020-07-25 10:32 | disposition home or self-care (01) ==
PROVIDERS: PCP Registered Nurse; Visit Provider Registered Nurse
DX: K35.80 Unspecified acute appendicitis (principal); J90 Pleural effusion, not elsewhere classified; K76.89 Other specified diseases of liver
CPT/HCPCS: 74176; 85025

== ENCOUNTER 2020-07-25 13:41 | Observation (INO) | payer MEDICARE, OTHER, SELFPAY ==
[2020-07-25] VITALS (16 sets, daily range): BP systolic 105–205; BP diastolic 48–82; PULSE 56–97; RESP 16–20; TEMP 36.4–37.4; O2SAT 91–98; BMI 25.0
--- NOTE | 2020-07-25 13:46 | XRR_ITS ---
PROCEDURE INFORMATION: Exam: XR Chest Exam date and time: 07/25/2020 1:47 PM Age: 80 years old Clinical indication: Condition or disease; Other: Appendicitis; Additional info: Hospital admit/surgery TECHNIQUE: Imaging protocol: XR of the chest Views: 1 view. COMPARISON: CR XR chest 1V portable [id number] 01/15/2020 2:30 PM FINDINGS: Lungs: Nonspecific interstitial thickening consistent with scarring. Hyperinflation. No consolidation. Pleural spaces: No definite pleural effusion. No pneumothorax. Heart/Mediastinum: No cardiomegaly. Bones/joints: No acute findings. XR/XR chest 1V portable [id number] IMPRESSION: No acute findings.
--- NOTE | 2020-07-25 14:41 | ED_ITS ---
HPI - Abdominal Pain General: Chief Complaint: Abdominal Pain Stated Complaint: AB PAIN Time Seen by Provider: 07/25/20 14:33 History of Present Illness: HPI narrative: 80-year-old male presents emergency room with complaint of abdominal pain. Originally began about a week ago and was across his lower abdomen and migrated to the right lower quadrant and settled there persisted. He still was able to eat in fact an hour and a half ago he said he ate a small cheeseburger. He is not had any vomiting or diarrhea he when seen his local PA. PA did a CT which showed acute appendicitis. MD elicited complaint: abdominal pain Onset (ago): day(s) Pain Consistency: constant Location: Diffuse Severity: moderate Quality: cramping Radiation: none Migration to: RLQ Exacerbating factors: eating, vomiting and movement Relieving factors: rest Associated Symptoms: Reports bloating, GI cramping, nausea and poor appetite; Denies anorexia, belching, change in bowel habits, change in stool character, chills, coffee ground emesis, constipation, diarrhea, dyspepsia, dysuria, excessive flatus, fever(s), heartburn, hematochezia, hematuria, hematemesis, fecal incontinence, loose stools, melena, syncope and vomiting Review of Systems Const: Denies: fever(s) or chills ENMT: Denies: throat pain, ear or mastoid pain, nasal discharge or nasal congestion Card: Denies: syncope Resp: Denies: dyspnea, productive cough or non-productive cough GI: Reports: nausea, bloating and GI cramping; Denies: vomiting, hematemesis, coffee ground emesis, heartburn, diarrhea, constipation, belching, excessive flatus, fecal incontinence, change in bowel habits, change in stool character, hematochezia or melena : Denies: dysuria or hematuria Skin/Breast: Denies: rash or pruritus PFSH ED PFSH: Medical History Atrial fibrillation BPH (benign prostatic hyperplasia) CHF (congestive heart failure), NYHA class III Coronary artery disease Essential hypertension Hyperlipidemia Obstructive sleep apnea Surgical History Hx of heart artery stent Hx of tonsillectomy Family History Mother , at age 65 Heart disease Father , in WW 2 No problems noted. Social History Smoking and tobacco status: never smoked Alcohol intake: never Marital status: Current occupational status: retired History of recent travel: No Physical Exam Const: COMMON NORMALS: no acute distress GENERAL APPEARANCE: cooperative and comfortable ORIENTATION/CONSCIOUSNESS: Yes awake, Yes oriented to person, Yes oriented to place and Yes oriented to time HENMT: COMMON NORMALS: normocephalic, atraumatic, hearing grossly normal bilaterally and external ears normal HEAD & SCALP: normocephalic and atraumatic EXTERNAL EAR: Yes external ears normal Neck/C-Spine: COMMON NORMALS: no JVD Resp: COMMON NORMALS: normal respiratory effort, No retractions, No use of accessory muscles and clear to auscultation bilaterally AUSCULTATION: clear to auscultation bilaterally Cardio: COMMON NORMALS: no JVD, regular rate, regular rhythm and No murmurs present (Cardio) RATE: regular rate RHYTHM: regular rhythm GI: COMMON NORMALS: Soft to palpation and No hepatosplenomegaly present AUSCULTATION: Yes normoactive bowel sounds PALPATION: Yes Soft to palpation, Yes Tenderness to palpation present (GI) Details: RLQ, Yes Guarding due to palpation present (GI) in the RLQ and Yes No hepatosplenomegaly present Extremity: COMMON NORMALS: normal to inspection, capillary refill normal, no clubbing, cyanosis or edema, no calf tenderness and no pedal edema Neuro: SENSORIUM/ORIENTATION: Yes oriented to person, Yes oriented to place and Yes oriented to time Skin: COMMON NORMALS: no rashes or lesions noted GENERAL SKIN EXAM: no rashes or lesions noted Course Vital Signs: Vital signs: Vital Signs Temperature 98.3 F 07/25/20 13:58 Pulse Rate 68 07/25/20 13:58 Respiratory Rate 16 07/25/20 13:58 Blood Pressure 176/80 07/25/20 13:58 Pulse Oximetry 97 07/25/20 13:58 MDM - Abdominal Pain MDM Narrative: Medical decision making narrative: Acute appendicitis unfortunately patient ate an hour and a half before he arrived here discussed with Dr. Negro will admit to [facility] Lab Data: Labs: Lab Results 07/25/20 07/25/20 Range/Units 14:52 14:52 WBC 8.7 (4.0-10.0) 10^3/ uL RBC 4.08 L (4.1-5.3) 10^6/u L Hgb 12.8 (11.7-16.6) g/dL Hct 38.3 L (42.0-52.0) % MCV 93.9 (80-94) fL MCH 31.4 (28.0-34.0) pg MCHC 33.4 (30.0-36.0) g/dL RDW 11.9 L (12.1-15.1) % Plt Count 210 (130-400) 10^3/c mm MPV 10.0 (7.4-10.4) fL Neut % (Auto) 71.4 % Lymph % (Auto) 13.6 % [place] % (Auto) 12.1 % Eos % (Auto) 2.1 % Baso % (Auto) 0.5 % Neut # (Auto) 6.24 (1.8-7.7) 10^3/u L Lymph # (Auto) 1.2 (0.8-4.8) 10^3/u L [place] # (Auto) 1.1 H (0.2-0.9) 10^3/u L Eos # (Auto) 0.2 (0.0-0.8) 10^3/u L Baso # (Auto) 0.0 (0.0-0.1) 10^3/u L Nucleated RBC % (a uto) 0 % Nucleated RBCs # 0.0 /100WBC Sodium 136 (136-145) mmol/L Potassium 4.1 (3.5-5.1) mmol/L Chloride 101 (98-107) mmol/L Carbon Dioxide 27 (22-29) mmol/L Anion Gap 12.1 (5-19) BUN 15 (8-23) mg/dL Creatinine 0.9 (0.7-1.2) mg/dL GFR Calculation Not Reportable Glucose 98 (65-115) mg/dL Calculated Osmolal ity 283 L (285-295) mOsm/k g Calcium 9.1 (8.5-10.5) mg/dL Total Bilirubin 0.7 (0.15-1.2) mg/dL AST 15 (0-40) U/L ALT 10 (0-41) U/L Alkaline Phosphata se 70 (40-130) IU/L Total Protein 7.1 (6.6-8.7) g/dL Albumin 4.0 (3.5-5.2) g/dL Globulin 3.1 (1.3-4.6) g/dL Discharge Plan Discharge Patient Disposition: Admitted As Inpatient Clinical Impression: Appendicitis, acute Condition: Stable Prescriptions: No Action ascorbate calcium (vitamin C) 500 mg tablet 500 mg PO DAILY@0900 RF: 0 multivitamin Tablet 1 tab PO DAILY RF: 0 amiodarone 100 mg tablet 50 mg PO DAILY@0900 RF: 0 cholecalciferol (vitamin D3) 1 tab PO DAILY@0900 RF: 0 latanoprost 0.005 % drops 1 drp ophthalmic (eye) BEDTIME@2100 RF: 0 aspirin 325 mg Tablet 325 mg PO DAILY@0900 RF: 0 timolol maleate 0.5 % drops See Rx Instructions .ROUTE .COMPLEX RF: 0 finasteride 5 mg tablet 5 mg PO DAILY@0900 RF: 0 tamsulosin 0.4 mg capsule 0.8 mg PO DAILY@2100 RF: 0 lisinopril 10 mg tablet 10 mg PO DAILY@0900 RF: 0 Referrals: Jason Carter APRN [Primary Care Provider] - Patient Instructions: Opioid Safety Coding Level of Care Code ED Animal Ecologist 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
--- NOTE | 2020-07-25 14:46 | PC.PHAR ---
PT STATES THAT HE IS SUPPOSED TO TAKE ELIQUIS, BUT HE CANNOT AFFORD IT. HE STATES HE TAKES A 350 MG ASPIRIN DAILY, INSTEAD.
[2020-07-25 15:10] LABS: Basophils % 0.5 %; Eosinophils # 0.2 10^3/uL (0.0-0.8); Eosinophils % 2.1 %; Hematocrit 38.3 % (42.0-52.0); Hemoglobin 12.8 g/dL (11.7-16.6); Lymphocytes # 1.2 10^3/uL (0.8-4.8); Lymphocytes % 13.6 %; Mean Corpuscular HGB Conc 33.4 g/dL (30.0-36.0); Mean Corpuscular Hemoglobin 31.4 pg (28.0-34.0); Mean Corpuscular Volume 93.9 fL (80-94); Monocytes # 1.1 10^3/uL (0.2-0.9); Monocytes % 12.1 %; Neutrophils # 6.24 10^3/uL (1.8-7.7); Neutrophils % 71.4 %; Nucleated Red Blood Cells % 0 %; Platelet Count 210 10^3/cmm (130-400); Red Blood Count 4.08 10^6/uL (4.1-5.3); Red Cell Distribution Width 11.9 % (12.1-15.1); White Blood Count 8.7 10^3/uL (4.0-10.0)
[2020-07-25 15:18] LABS: Alanine Aminotransferase 10 U/L (0-41); Alkaline Phosphatase 70 IU/L (40-130); Anion Gap 12.1 (5-19); Aspartate Amino Transferase 15 U/L (0-40); Blood Urea Nitrogen 15 mg/dL (8-23); Calcium 9.1 mg/dL (8.5-10.5); Carbon Dioxide 27 mmol/L (22-29); Chloride 101 mmol/L (98-107); Creatinine Clr Calc Pharmacy 74.1907; Globulin 3.1 g/dL (1.3-4.6); Glucose 98 mg/dL (65-115); Osmolality Calculated 283 mOsm/kg (285-295); Potassium 4.1 mmol/L (3.5-5.1); Sodium 136 mmol/L (136-145); Total Bilirubin 0.7 mg/dL (0.15-1.2); Total Protein 7.1 g/dL (6.6-8.7)
[2020-07-25 15:26] LABS: Add Urine Microscopic? NO; Charge for UA Resulting for Rev
[2020-07-25 15:41] LABS: Bilirubin Urine Neg (Negative); Blood Urine Neg (Negative); Glucose Urine UA Norm (Normal); Ketones Urine Negative (Negative); Leukocyte Esterase Urine Negative (Negative); Nitrate Urine Negative (Negative); Protein Urine Neg (Negative); Urine Appearance Clear (CLEAR); Urine Color Yellow (Yellow); Urobilinogen Urine Norm (Negative); pH Urine 6 (5-7)
[2020-07-25] MEDS: piperacillin-tazobactam 3.375 GM in sodium chloride 0.9% (plus) 50 ML IV (15:54)
--- NOTE | 2020-07-25 16:16 | P.HP_ITS ---
Providers/Chief Complaint Admitting Physician: Roberth Muller MD Primary Care Provider: Jason Carter APRN Chief Complaint: AB PAIN History of Present Illness Jong Higuera is a 80 year old male who says he developed some lower abdominal pain perhaps 5 days ago. It has persisted until now, but he says the pain seemed to be a little bit more prominent in the right lower quadrant s tarting 2 or 3 days ago. It does not sound like the pain has ever become unbearable; in fact, he said he has been doing his daily physical workout, eating normally, etc. every day since then. He denies any associated symptoms including fevers, chills, nausea, vomiting, changes in bowel habits. He says he has had a bowel movement every day which is normal for him and there have not been any changes. He went to be seen in his physician's office this morning because the pain had persisted and eventually ended up in the CAT scanner. He said he was told it would take about 30 minutes to get a result from the radiologist but after waiting nearly an hour and a half altogether, he says they told him they will call you. He left and went to eat a cheeseburger (about 1 PM this afternoon) since he had not had any breakfast, but then was notified that his CAT scan showed changes consistent with acute appendicitis and was directed to the emergency department. The patient mentions that he has had colonoscopy, but it has probably been 15 years since he has had one. He has no family history of GI neoplasia. Of note, the patient was on Eliquis for his history of CAD, but stopped after t he medicine became too expensive and just started taking a full size aspirin every day. Dr. Anglin was not happy. He also mentions that he was diagnosed with Covid in December of last year and was actually hospitalized at that time. Review of Systems General: Reports: 10 or more systems reviewed and unremarkable except in HPI and below Const: Denies: fever(s) or chills GI: Reports: abdominal pain; Denies: nausea, vomiting or change in bowel habits Medications/Allergies Home Medications Medication Instructions Recorded Confirmed Last Taken Type multivitamin 1 tab PO DAILY 03/03/20 07/25/20 Unknown History ascorbate calcium (vitamin C) 500 500 mg PO DAILY@0900 03/07/20 07/25/20 Unknown History mg tablet amiodarone 100 mg tablet 50 mg PO DAILY@0900 tab 07/04/20 07/25/20 07/24/20 History cholecalciferol (vitamin D3) 1 tab PO DAILY@0900 07/04/20 07/25/20 07/24/20 Hist ory aspirin 325 mg PO DAILY@0900 07/25/20 07/25/20 07/24/20 History finasteride 5 mg PO DAILY@0900 07/25/20 07/25/20 07/24/20 History latanoprost 1 drp OPHTHALMIC (EYE) BEDTIME@209907/25/20 07/25/20 07/24/20 History lisinopril 10 mg PO DAILY@0900 07/25/20 07/25/20 07/24/20 History tamsulosin 0.8 mg PO DAILY@209907/25/20 07/25/20 07/24/20 History timolol maleate See Rx Instructions .ROUTE .COMPLEX 07/25/20 07/25/20 07/24/20 History Allergies Allergy/AdvReac Type Severity Reaction Status Date / Time No Known Allergies Allergy Verified 07/25/20 14:06 PFSH Acute PFSH: Medical History (Updated 07/25/20 @ 16:25 by Roberth Muller MD) Atrial fibrillation Seems to come and go per patient BPH (benign prostatic hyperplasia) CHF (congestive heart failure), NYHA class III Coronary artery disease Essential hypertension Hyperlipidemia Obstructive sleep apnea Surgical History (Updated 07/25/20 @ 16:23 by Roberth Muller MD) History of cataract surgery Bilateral Hx of heart artery stent x 3 -- last around 2014 Hx of tonsillectomy Family History Mother , at age 65 Heart disease Father , in WW 2 No problems noted. Social History Smoking and tobacco status: never smoked Alcohol intake: never Marital status: Current occupational status: retired History of recent travel: No Vitals/I&O/Wt Last Vital Signs Temp 98.3 F 07/25/20 13:58 Pulse 68 07/25/20 13:58 Resp 16 07/25/20 13:58 BP 176/80 07/25/20 13:58 Pulse Ox 97 07/25/20 13:58 Weight last 48 hrs Weight 185 lb Physical Exam Narrative: EXAM NARRATIVE: The patient was encountered in his room in the e mergency department. He is in no distress. The pupils are equal. No carotid bruits are heard. The lungs are clear anteriorly. The heart seems regular. The abdomen reveals bowel sounds but they may be slightly hypoactive. He does have some mild tenderness over McBurney's point in the right lower quadrant but no evidence of percussion tenderness. Rovsing's sign is negative. No obvious masses are palpated. The extremities reveal no edema. Neurologically the patient appears to be grossly intact. Data : 07/25/20 14:52 07/25/20 14:52 CT Abd/Pel: Radiologist's impression: CT abdomen/pelvis 07/25/2020IMPRESSION: 1. Fluid-filled dilated appendix with surrounding inflammatory stranding and edema consistent with acute appendicitis. No evidence of drainable abscess or fluid collection. 2. Multiple hepatic cysts. 3. Tiny pleural effusions with bibasilar atelectasis. A&P Assessment and plan (1) Appendicitis, acute: The patient has had pain for 5 days and has a remarkable absence of any other constitutional symptoms. His exam currently is not even terribly impressive for tenderness, etc. The CT changes are certainly suggestive of acute appendicitis. I did discuss the rare presentation of a colonic neoplasm looking the same way, etc. We discussed both conservative and surgical methods of management for acute appendicitis. Given the unusual presentation and the changes on the CAT scan, I discussed that if we proceed with surgery an appendectomy will likely be performed, but it may or may not turn into a larger procedure based on what is found. Risks of surgery including bleeding, infection, internal organ injury, etc. were all gone over. This patient seems to understand and is agreeable to proceeding with an appendectomy. Status: Acute Attestations Medical Necessity Statement*: Based on my medical assessment, presenting symptoms and consideration of the scope of surgical therapy, I expect this patient will require treatment in the hospital for a period of time spanning less than 2 midnights, and is therefore being placed in observation status. 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
[2020-07-25] MEDS: lactated ringers 1,000 ML 100 ML IV (16:29)
--- NOTE | 2020-07-25 16:57 | ANES.PREANE2 ---
Pre-Anesthetic Assessment Pre-Anesthetic Assessment: Height/Weight: Height 1.83 m Weight 83.915 kg Temp Pulse Resp BP Pulse Ox 98.3 F 76 18 174/81 96 07/25/20 13:58 07/25/20 16:54 07/25/20 16:54 07/25/20 16:54 07/25/20 16:54 Preop Diagnosis: appendicitis Proposed Procedure: appendectomy Familial anesthetic complications: None Was Beta Constance taken within 24 hours: N/A Was Clonidine taken within 24 hours: N/A Last intake: Burger at 1300 Social: Social History: No alcohol and No tobacco Exam: Pre-Anes Outpt Exam: alert, oriented x 3, clear to auscultation bilaterally and regular rate & rhythm Airway: Cervical ROM: WNL MP: 2 Dentition: Other (missing) Pulmonary: Pulmonary: Sleep apnea Comments: covid 19 requiring intubation last december CV/HEM: CV/HEM: Afib (developed after getting covid), CAD (stents in 2014) and CHF Comments: Patient states he's doing very well, exercises/walks 6x a week, easily achieves 4 METS without symptoms Metabolic: Metabolic: Hyperlipidemia Anesthetic Plan: ASA status: 3E Anesthesia: General Other: RSI for ulissesger at 1300 Risk of > 500 ml blood loss (7ml/kg in children): No Meds/Allergies Current Medications: Current Medications Generic Name Dose Route Start Last Admin Trade Name Freq PRN Reason Stop Dose Admin Cefazolin Sodium/D extrose 2 gm in 50 mls @ 100 mls/hr 07/25/20 17:00 07/25/20 16:30 Kefzol IV 07/25/20 17:29 100 mls/hr VIRTUAL CUSTOMER ASSISTANT ONE Administration Protocol Lactated Ringer's 1,000 mls @ 100 m ls/hr 07/25/20 16:15 07/25/20 16:29 Lactated Ringers IV 100 mls/hr .Q10H CORAL Administration PFSH Anesthesia PFSH: Medical History (Updated 07/25/20 @ 16:25 by Roberth Muller MD) Atrial fibrillation Seems to come and go per patient BPH (benign prostatic hyperplasia) CHF (congestive heart failure), NYHA class III Coronary artery disease Essential hypertension Hyperlipidemia Obstructive sleep apnea Surgical History (Updated 07/25/20 @ 16:23 by Roberth Muller MD) History of cataract surgery Bilateral Hx of heart artery stent x 3 -- last around 2014 Hx of tonsillectomy Family History Mother , at age 65 Heart disease Father , in WW 2 No problems noted. Social History Smoking and tobacco status: never smoked Alcohol intake: never Marital status: Current occupational status: retired History of recent travel: No Data Anesthesia CBC & Chem 7: 07/25/20 14:52 07/25/20 14:52 Other Labs: Laboratory Results - last 48 hr 07/25/20 07/25/20 07/25/20 14:52 14:52 15:19 WBC 8.7 RBC 4.08 L Hgb 12.8 Hct 38.3 L MCV 93.9 MCH 31.4 MCHC 33.4 RDW 11.9 L Plt Count 210 MPV 10.0 Neut % (Auto) 71.4 Lymph % (Auto) 13.6 [place] % (Auto) 12.1 Eos % (Auto) 2.1 Baso % (Auto) 0.5 Neut # (Auto) 6.24 Lymph # (Auto) 1.2 [place] # (Auto) 1.1 H Eos # (Auto) 0.2 Baso # (Auto) 0.0 Nucleated RBC % (auto) 0 Nucleated RBCs # 0.0 Sodium 136 Potassium 4.1 Chloride 101 Carbon Dioxide 27 Anion Gap 12.1 BUN 15 Creatinine 0.9 GFR Calculation Not Reportable Glucose 98 Calculated Osmolality 283 L Calcium 9.1 Total Bilirubin 0.7 AST 15 ALT 10 Alkaline Phosphatase 70 Total Protein 7.1 Albumin 4.0 Globulin 3.1 Urine Color Yellow Urine Appearance Clear Urine pH 6 Ur Specific [place] 1.010 Urine Protein Neg Urine Glucose (UA) Norm Urine Ketones Negative Urine Blood Neg Urine Nitrate Negative Urine Bilirubin Neg Urine Urobilinogen Norm Ur Leukocyte Esterase Negative Cardiac Studies: No Data to Display
--- NOTE | 2020-07-25 17:11 | PC.NURSE ---
patient taken to OR via gurney
--- NOTE | 2020-07-25 18:15 | P.OP_ITS ---
Operative Report Date of procedure: July 25, 2020 Pre-op Diagnosis: Acute appendicitis. Post-op Diagnosis: Same, with local perforation. Procedure Done: Laparoscopic appendectomy. Specimens removed/disposition: 1. Appendix. 2. Appendiceal exudate/abscess for Gram stain and culture. Surgeon: Roberth Muller Anesthesia: General Estimated blood loss (mL): 5 Complications: None. Condition: stable Disposition: PACU Procedure: The patient was brought to the Operating Room and was placed in a supine position on the operating room table. General endotracheal anesthesia was induced. The abdomen was prepped and draped in a sterile fashion. A small vertical incision was carried out in the inferior aspect of the umbilicus. Blunt dissection was carried out down to the fascia, where the patient was found to have a small fat-containing umbilical hernia. The fascial opening was simply elongated inferiorly for short distance. Which was grasped with a Mily clamp. A stay suture of 0 Vicry was placed on either side of the midline. The underlying peritoneum was opened bluntly and the Leta port was placed directly into the peritoneal cavity through the enlarged umbilical hernia defect and was held in place with the inflatable balloon. The peritoneal cavity was insufflated with carbon dioxide. The laparoscope was used to inspect the peritoneal cavity. The patient had some adhesions with a small amount of exudate in the right lower quadrant to the pelvic sidewall. Two 5-millimeter ports were placed in the left lower quadrant under direct vision. The patient was tilted in a Trendelenburg position and slightly to the left side. A laparoscopic [place] was used to break apart the adhesions which had formed a small phlegmon in the right lower quadrant. Eventually, the appendix was identified and was elevated. Posterior to the appendix and apparent small abscess composed of some yellow purulent fluid/exudate was found. The fluid was collected and was sent to the lab for Gram stain and cultures. The appendix did appear to have a perforation in its mid aspect posteriorly. The mesoappendix was divided using cautery to maintain hemostasis at the base of the appendix. The base of the appendix appeared healthy and was divided using an endoscopic stapler. The appendix was removed from the peritoneal cavity after being placed in a laparoscopic bag. The right lower quadrant and pelvis were irrigated. The staple line on the cecum was identified and appeared to be in good condition. The Leta port was removed from the umbilical site and the stay sutures of Vicryl were tied to each other at the umbilicus, closing the fascial defect so that it was airtight. A final round of irrigation was carried out in the right lower quadrant and the pelvis. No ongoing problems were seen. The remaining ports were removed from the abdominal wall as the pneumoperitoneum was evacuated. All skin incisions were closed using inverted interrupted sutures of 4-0 Vicryl. Benzoin and Steri-Strips were placed over the incisions and Band- Aids followed. The patient was taken to the Recovery Room in stable condition postoperatively.
--- NOTE | 2020-07-25 18:40 | SUR.PHASEI ---
PT AWAKE ALERT ON RA TRIAL, PT TAKING OCC ICE CHIPS , BILAT HEARING AIDS PLACED IN PT EARS BY PT, VSS. ABD SOFT WITH 3 SITES D/I
--- NOTE | 2020-07-25 20:00 | ANE.PACU2 ---
Inpatient post-anesthesia follow up: Airway intact: Yes Vital signs: Temperature 99.2 F Pulse Rate [Right Radial] 68 Pulse Rate 62 Respiratory Rate 18 Blood Pressure [Le ft Arm] 176/80 Blood Pressure 108/62 Pulse Oximetry 91 Oxygen Delivery Me thod Room Air Oxygen Flow Rate 8 Fraction of Inspir ed Oxygen Hydration adequate: Yes Nausea and vomiting: No Pain level: 2 Mental status: Baseline
[2020-07-25] MEDS: tamsulosin 0.4 mg Capsule 0.8 MG PO (20:12)
[2020-07-25] MEDS: metroNIDAZOLE IV 500 MG/100 ML PREMIX 100 MG IV (20:19)
[2020-07-25] MEDS: heparin 5,000 unit/mL INJ 1 mL 5000 UNIT SUBCUT (20:20)
[2020-07-25] MEDS: D5-NS 0.45% + KCL 20 mEq 20 MEQ/1,000 ML BAG 100 MEQ IV (20:20)
[2020-07-25] MEDS: levalbuterol 0.63 mg/3 mL Neb INHALATION (20:59)
[2020-07-25] MEDS: famotidine 20 mg/2 mL INJ IVP (21:10)
[2020-07-25] MEDS: latanoprost 0.005% Op Soln 2.5 mL Btl 1 DROP EYE-BOTH (21:18)
[2020-07-25] MEDS: HYDROcodone-acetaminophen 5-325 mg Tablet PO (21:20)
[2020-07-25] MEDS: ondansetron 2 mg/ML SDV 2 mL 4 MG IVP (21:52)
[2020-07-26] VITALS (7 sets, daily range): BP systolic 99–127; BP diastolic 60–66; PULSE 60–74; RESP 16–19; TEMP 36.6–37.3; O2SAT 91–94
[2020-07-26] MEDS: ceFAZolin 1,000 MG in sodium chloride 0.9% (plus) 50 ML 100 MG IV ×2 (00:46→08:45)
[2020-07-26] MEDS: metroNIDAZOLE IV 500 MG/100 ML PREMIX 100 MG IV (03:58)
[2020-07-26 06:31] LABS: Basophils % 0.3 %; Hematocrit 33.6 % (42.0-52.0); Hemoglobin 11.2 g/dL (11.7-16.6); Lymphocytes # 0.8 10^3/uL (0.8-4.8); Lymphocytes % 6.9 %; Mean Corpuscular HGB Conc 33.3 g/dL (30.0-36.0); Mean Corpuscular Hemoglobin 31.4 pg (28.0-34.0); Mean Corpuscular Volume 94.1 fL (80-94); Mean Platelet Volume 10.1 fL (7.4-10.4); Neutrophils # 9.51 10^3/uL (1.8-7.7); Neutrophils % 83.4 %; Nucleated Red Blood Cells % 0 %; Platelet Count 204 10^3/cmm (130-400); Red Blood Count 3.57 10^6/uL (4.1-5.3); Red Cell Distribution Width 12.2 % (12.1-15.1); White Blood Count 11.4 10^3/uL (4.0-10.0)
[2020-07-26 06:48] LABS: Alanine Aminotransferase 7 U/L (0-41); Albumin Level 3.1 g/dL (3.5-5.2); Alkaline Phosphatase 55 IU/L (40-130); Anion Gap 12.4 (5-19); Aspartate Amino Transferase 11 U/L (0-40); Blood Urea Nitrogen 19 mg/dL (8-23); Carbon Dioxide 22 mmol/L (22-29); Chloride 102 mmol/L (98-107); Creatinine Clr Calc Pharmacy 60.7015; Globulin 2.6 g/dL (1.3-4.6); Glucose 168 mg/dL (65-115); Osmolality Calculated 280 mOsm/kg (285-295); Potassium 4.4 mmol/L (3.5-5.1); Sodium 132 mmol/L (136-145); Total Bilirubin 0.4 mg/dL (0.15-1.2); Total Protein 5.7 g/dL (6.6-8.7)
--- NOTE | 2020-07-26 08:25 | P.DS_ITS ---
Discharge Providers Date of Admission: 07/25/20 15:26 Date of Discharge: July 26, 2020 Attending Provider at Admission: Roberth Muller MD Attending Provider at Discharge: Roberth Muller MD Primary Care Provider: Jason Carter APRN Diagnoses at Discharge Discharge Diagnosis (1) Acute appendicitis with perforation and localized peritonitis, with abscess: Status: Acute Reason for Visit Reason for Visit: Acute appendicitis. Hospital Course Hospital Course This is an 80-year-old white male who developed some lower abdominal pain approximately 5 days prior to presentation. The pain persisted but subjectively he says it never really got bad. Remarkably, the patient's pain was unassociated with fevers, chills, nausea, vomiting, changes in bowel habits, etc. He continued with his daily physical workout regimen, walks, etc. He was eating normally and says his appetite never really wavered. He rather casually but eventually went to his primary care physician's office because the pain was still present and ended up having a CAT scan which showed acute appendicitis. The patient was taken to the operating room the same day and a laparoscopic appendectomy was performed. Not surprisingly, the patient was found to have a small abscess posterior to the appendix but it was very well contained. He had originally indicated he would like to try to go home the same day, but given the small perforation, he was convinced to stay in the hospital on intravenous a ntibiotics at least overnight. By the following morning he says he had no discomfort. He was afebrile. White blood cell count was mildly elevated as expected. He was very anxious to go home. The cultures taken at the time of surgery were obviously still pending (Gram stain showed gram-negative rods) and I made him aware that I would send him home on oral antibiotics even though culture results and sensitivities were not available as yet. He agreed. He was instructed with respect to wound care, activity limitations, diet, etc. Arrangements will be made for the patient to follow-up with me in my office early next week. Physical Exam Narrative: EXAM NARRATIVE: Postop day #1: Lungs are clear. The heart is regular. The abdomen reveals bowel sounds it may be slightly hypoactive. All of the laparoscopic incisions look good. Discharge Data Data Completed and Pending: Completed Studies During Hospitalization Category Date Time Status XR chest 1V papi ble [id number] Urgent Exams 07/25/20 13:46 Completed Pending at discharge Category Date Time Status ES surgery / GI i mages Routine Exams 07/25/20 17:07 Ordered Body Fluid Cultur e & GS Routine Lab 07/25/20 18:00 Results Pathology: Surgic al [PTH] Routine Pth 07/25/20 18:18 Ordered Labs from last 24 hours 07/26/20 07/26/20 07/25/20 06:06 06:06 15:19 WBC 11.4 H RBC 3.57 L Hgb 11.2 L Hct 33.6 L MCV 94.1 H MCH 31.4 MCHC 33.3 RDW 12.2 Plt Count 204 MPV 10.1 Neut % (Auto) 83.4 Lymph % (Auto) 6.9 [place] % (Auto) 9.0 Eos % (Auto) 0.0 Baso % (Auto) 0.3 Neut # (Auto) 9.51 H Lymph # (Auto) 0.8 [place] # (Auto) 1.0 H Eos # (Auto) 0.0 Baso # (Auto) 0.0 Nucleated RBC % (a uto) 0 Nucleated RBCs # 0.0 Sodium 132 L Potassium 4.4 Chloride 102 Carbon Dioxide 22 Anion Gap 12.4 BUN 19 Creatinine 1.1 GFR Calculation Not Reportable Glucose 168 H Calculated Osmolal ity 280 L Calcium 8.0 L Total Bilirubin 0.4 AST 11 ALT 7 Alkaline Phosphata se 55 Total Protein 5.7 L Albumin 3.1 L Globulin 2.6 Urine Color Yellow Urine Appearance Clear Urine pH 6 Ur Specific Gravit y 1.010 Urine Protein Neg Urine Glucose (UA) Norm Urine Ketones Negative Urine Blood Neg Urine Nitrate Negative Urine Bilirubin Neg Urine Urobilinogen Norm Ur Leukocyte Trisha ase Negative 07/25/20 07/25/20 14:52 14:52 WBC 8.7 RBC 4.08 L Hgb 12.8 Hct 38.3 L MCV 93.9 MCH 31.4 MCHC 33.4 RDW 11.9 L Plt Count 210 MPV 10.0 Neut % (Auto) 71.4 Lymph % (Auto) 13.6 [place] % (Auto) 12.1 Eos % (Auto) 2.1 Baso % (Auto) 0.5 Neut # (Auto) 6.24 Lymph # (Auto) 1.2 [place] # (Auto) 1.1 H Eos # (Auto) 0.2 Baso # (Auto) 0.0 Nucleated RBC % (a uto) 0 Nucleated RBCs # 0.0 Sodium 136 Potassium 4.1 Chloride 101 Carbon Dioxide 27 Anion Gap 12.1 BUN 15 Creatinine 0.9 GFR Calculation Not Reportable Glucose 98 Calculated Osmolal ity 283 L Calcium 9.1 Total Bilirubin 0.7 AST 15 ALT 10 Alkaline Phosphata se 70 Total Protein 7.1 Albumin 4.0 Globulin 3.1 Urine Color Urine Appearance Urine pH Ur Specific Gravit y Urine Protein Urine Glucose (UA) Urine Ketones Urine Blood Urine Nitrate Urine Bilirubin Urine Urobilinogen Ur Leukocyte Trisha ase Vitals: Last Vital Signs Temp 97.9 F 07/26/20 07:15 Pulse 64 07/26/20 07:15 Resp 19 H 07/26/20 07:15 BP 108/62 07/26/20 07:15 Pulse Ox 93 07/26/20 07:15 Discharge Plan Discharge Patient Disposition: Home Condition: Stable Prescriptions: New amoxicillin-pot clavulanate 500-125 mg Tablet 1 tab PO TID Qty: 20 RF: 0 Continued ascorbate calcium (vitamin C) 500 mg tablet 500 mg PO DAILY@0900 RF: 0 multivitamin Tablet 1 tab PO DAILY RF: 0 amiodarone 100 mg tablet 50 mg PO DAILY@0900 RF: 0 cholecalciferol (vitamin D3) 1 tab PO DAILY@0900 RF: 0 latanoprost 0.005 % drops 1 drp ophthalmic (eye) BEDTIME@2100 RF: 0 aspirin 325 mg Tablet 325 mg PO DAILY@0900 RF: 0 timolol maleate 0.5 % drops See Rx Instructions .ROUTE .COMPLEX RF: 0 finasteride 5 mg tablet 5 mg PO DAILY@0900 RF: 0 tamsulosin 0.4 mg capsule 0.8 mg PO DAILY@2100 RF: 0 lisinopril 10 mg tablet 10 mg PO DAILY@0900 RF: 0 Discharge Orders: Discharge Order (Routine); Ordered 07/26/20 Ordered By: Roberth Muller Referrals: Roberth Muller MD [Physician] - 4-7 days (Nursing: Please call Dr. Muller's office ([phone]) and make an appointment for the patient to be seen next week.) Jason Carter APRN [Primary Care Provider] - Discharge Diet: Advance as tolerated Discharge Activity: Limit activity as instructed Patient Instructions: Opioid Safety Activity Restrictions/Additional Instructions: 1. Discharge to home today. 2. Appointment to see Dr. Muller next week as above. 3. Leave Steri-Strip(s) on at home until they fall off by themselves, may shower. No lifting over 20 pounds, no repetitive bending or twisting, no strenuous pushing / pulling or other heavy activity as discussed. Ambulate regularly. May go up and down steps if needed. Discharge Attestations Time Spent in Discharge Care*: less than 30 min Quality Metrics Clinical Quality Measures During this hospital stay, did patient experience: None Coding Level of Care Code Acute Chg FW DC note Diagnoses Acute appendicitis with perforation and localized peritonitis, with abscess K35.33
[2020-07-26] MEDS: levalbuterol 0.63 mg/3 mL Neb INHALATION ×2 (08:30)
[2020-07-26] MEDS: lisinopril 10 mg Tablet PO (08:53)
[2020-07-26] MEDS: timolol 0.5% Op Soln 5 mL Btl 1 DROP EYE-LEFT (08:53)
[2020-07-26] MEDS: finasteride 5 mg Tablet PO (08:54)
[2020-07-26] MEDS: amiodarone 200 mg Tablet 50 MG PO (08:54)
[2020-07-26] MEDS: aspirin 325 mg Tablet PO (08:54)
--- NOTE | 2020-07-26 10:33 | PC.CHAP ---
Pastoral Care Encounter/Spiritual Assessment Type of Contact [] Declined morning news anchor visit [] Patient/Family/Request visit [] Outpatient visit [] Follow-up visit [] Physician referral [] Code/Alert [x] Routine visit [] Staff referral [] Actively dying [] Patient sleeping [] Family support [] [] Out of room [] Palliative care [] [] Receiving care in room [] Pre-surgical visit [] Trauma [] Long length of stay [] ICU visit [] Other: Relational/Emotional Strength [x] Patient feels connected with others/family/visitors/staff [] Distress [] Loneliness/isolation [] Abandonment Spirituality of Patient [x] Person of Adry [x] Attends Adventist of their Adry [x] Believes in Prayer [x] Reads Bible or Mosque materials [] There are Spiritual issues to be addressed Waiter/Waitress Captain Interventions [x] Prayer [x] Active listening [x] Non-anxious presence []x Spiritual/emotional support [] Crisis/trauma care [] Spiritual counseling [] Bereavement support [] Provided bereavement packet [] Provided Bible/devotional materials [] Provided toy/stuffed animal, coloring book to patient or family member [] Provided Communion [] Anointing/[place] [] Salvation [] Completed spiritual assessment [] Other: Impact on Illness or Injury [] Angry [] Fearful [] Anxious [] Often cries [] Exhaustion [] Unable to work [] Unable to attend yazidism [] Unable to walk/stand [] Unable to read [] Unable to drive [] Unable to eat/drink [] Unable to sleep [] Unable to be with family [] Patient intubated [] Other: Summary Time spent with patient 10 min
== END 2020-07-26 11:05 | disposition home or self-care (01) ==
LOC: ER 15:24 → MEDSURG 16:04
PROVIDERS: Physician Assistant; Admitting Provider Surgery; Emergency Provider Family Medicine; PCP Nurse Practitioner Family; Visit Provider Surgery
PROC: 0DTJ4ZZ Resection of Appendix, Percutaneous Endoscopic Approach (ICD-10-PCS; CPT 44970; principal; 2020-07-25 17:45)
DX: K35.33 Acute appendicitis with perforation, localized peritonitis, and gangrene, with abscess (principal); G47.30 Sleep apnea, unspecified; I48.91 Unspecified atrial fibrillation; Z86.16 Personal history of COVID-19; I25.10 Atherosclerotic heart disease of native coronary artery without angina pectoris; Z95.5 Presence of coronary angioplasty implant and graft; I11.0 Hypertensive heart disease with heart failure; I50.9 Heart failure, unspecified; E78.5 Hyperlipidemia, unspecified; N40.0 Benign prostatic hyperplasia without lower urinary tract symptoms; Z82.49 Family history of ischemic heart disease and other diseases of the circulatory system; K35.80 Unspecified acute appendicitis; J90 Pleural effusion, not elsewhere classified; K76.89 Other specified diseases of liver
CPT/HCPCS: 44970; 12345; 36415; 71045; 74176; 80053; 81003; 85025; 87070; 87075; 87077; 87186; 87205; 88304; 94640; 96361; 96365; 96366; 96367; 96372; 96375; 99285; G0378; J0360; J0690; J1644; J2405; J2543; J2704; J2710; J3010; J3490; J7614; S0030

== ENCOUNTER → 2021-01-11 08:50 | Outpatient (BNVA) | payer MEDICARE, OTHER, SELFPAY | PROVIDERS: PCP Registered Nurse; Visit Provider Urology | DX: N40.1 Benign prostatic hyperplasia with lower urinary tract symptoms (principal); N13.8 Other obstructive and reflux uropathy | CPT/HCPCS: 81003 ==

== ENCOUNTER → 2021-07-26 11:59 | Outpatient (BNVA) | payer MEDICARE, SELFPAY | PROVIDERS: PCP Registered Nurse; Visit Provider Registered Nurse | DX: I10 Essential (primary) hypertension (principal); E55.9 Vitamin D deficiency, unspecified; N40.0 Benign prostatic hyperplasia without lower urinary tract symptoms; Z00.00 Encounter for general adult medical examination without abnormal findings; I48.91 Unspecified atrial fibrillation; Z71.85 Encounter for immunization safety counseling; Z71.3 Dietary counseling and surveillance; Z71.82 Exercise counseling; N40.1 Benign prostatic hyperplasia with lower urinary tract symptoms; N13.8 Other obstructive and reflux uropathy | CPT/HCPCS: 80053; 80061; 82306; 85025 ==

== ENCOUNTER → 2021-07-30 10:13 | Outpatient (BNVA) | payer MEDICARE, SELFPAY | PROVIDERS: PCP Registered Nurse; Visit Provider Internal Medicine Cardiovascular Disease | DX: I48.91 Unspecified atrial fibrillation (principal); I11.0 Hypertensive heart disease with heart failure; I50.9 Heart failure, unspecified; I25.10 Atherosclerotic heart disease of native coronary artery without angina pectoris; E78.2 Mixed hyperlipidemia; G47.33 Obstructive sleep apnea (adult) (pediatric); Z79.82 Long term (current) use of aspirin | CPT/HCPCS: 99214 ==

== ENCOUNTER → 2022-12-13 08:37 | Outpatient (BNVA) | payer MEDICARE, SELFPAY | PROVIDERS: PCP Registered Nurse; Visit Provider Nurse Practitioner Family | DX: E78.5 Hyperlipidemia, unspecified (principal); I10 Essential (primary) hypertension | CPT/HCPCS: 80053; 80061; 81000; 85025 ==

== ENCOUNTER → 2023-11-20 09:57 | Outpatient (BNVA) | payer MEDICARE, SELFPAY | PROVIDERS: PCP Registered Nurse; Visit Provider Nurse Practitioner Family | DX: R07.9 Chest pain, unspecified (principal) | CPT/HCPCS: 93005 ==

== ENCOUNTER 2023-11-27 11:57 | Outpatient (CLI) | payer MEDICARE, SELFPAY ==
--- NOTE | 2023-11-27 | ECG_ITS ---
[facility] Test Date: 2023-11-27 Pat Name: Jong Higuera Department: Room: Gender: Male Machine Welt Butter: : 1940 Requested By: Miller George Order Number: [id number] Rudi MD: Quirino Matthew M.D. Interpretive Statements NAME OF STUDY: TREADMILL STRESS TEST INDICATION: [Chest Pain] EXERCISE DATA: The patient was exercised by Jevon protocol. Baseline heart rate was 72 beats per minute. Baseline blood pressure was 152/88 millimeters of mercury. Maximal predicted heart rate was 137 beats per minute. Maximum heart rate achieved was 145, which was 105% of the maximum predicted heart rate. Maximum blood pressure was 205/101 millimeters of mercury. Total exercise time was 6 minutes 29 seconds. Maximum METs achieved was 10.2. The reason for ending the test was completion of protocol. The patient complained of shortness of breath during the stress test, which then resolved at the end of the test. ELECTROCARDIOGRAM: BASELINE: Showed sinus rhythm, right bundle branch block, no significant ST-T changes at the baseline noted. [] EXERCISE: At the peak exercise level, [] No significant ST-T changes suggestive of ischemia noted. [] RECOVERY: During the recovery period, heart rate dropped appropriately. No significant ST-T changes in the recovery suggestive of ischemia noted. PVCs seen[] CONCLUSION: 1. Exercise capacity is good 2. Heart rate response was appropriate 3. Blood pressure response was hypertensive 4. Symptoms not suggestive of ischemia. 5. Patient has baseline EKG abnormality of right bundle branch block. This reduces sensitivity of testing. However on stress level, no obvious changes concerning for ischemia seen. Electronically Signed On 11-30-2023 21:28:28 CDT by Quirino Matthew M.D. [email or web address]
[2023-11-27 12:31] VITALS: BMI 24.4
[2023-11-27 13:30] VITALS: BP 151/84; PULSE 62
== END 2023-11-27 11:58 | disposition home or self-care (01) ==
PROVIDERS: PCP Nurse Practitioner Family; Visit Provider Nurse Practitioner Family
DX: R07.9 Chest pain, unspecified (principal)
CPT/HCPCS: 93017

== ENCOUNTER → 2024-03-04 09:38 | Outpatient (BNVA) | payer MEDICARE, SELFPAY | PROVIDERS: PCP Nurse Practitioner Family; Visit Provider Nurse Practitioner Family | DX: I50.9 Heart failure, unspecified (principal); N40.0 Benign prostatic hyperplasia without lower urinary tract symptoms; Z00.00 Encounter for general adult medical examination without abnormal findings; N40.1 Benign prostatic hyperplasia with lower urinary tract symptoms; N13.8 Other obstructive and reflux uropathy; N52.9 Male erectile dysfunction, unspecified; I11.0 Hypertensive heart disease with heart failure | CPT/HCPCS: 80053; 80061; 82040; 82306; 82607; 84270; 84403; 85025 ==

== ENCOUNTER → 2025-03-03 10:16 | Outpatient (BNVA) | payer MEDICARE, SELFPAY | PROVIDERS: PCP Nurse Practitioner Family; Visit Provider Nurse Practitioner Family | DX: Z00.00 Encounter for general adult medical examination without abnormal findings (principal) | CPT/HCPCS: 80053; 80061; 85025; 86141 ==

== ENCOUNTER 2025-03-13 09:25 | Observation (INO) | payer MEDICARE, SELFPAY ==
--- OUTSIDE RECORDS SUMMARY | 2024-04-26 08:50 | XMS_ITS ---
Author Organization [employer] Address [address] [place] [address] Care Team Providers Care Cabin Worker Name Role Phone JOSE BAUER Primary Care Provider ANA Mc Unavailable [phone] REASON FOR VISIT BPH w/Luts/ED Encounters Encounter Location Date Provider Diagnosis [employer] [employer] [address] [place] [facility] [place] [address] 04/26/2024 ANA POTTERER Plan Of Treatment No Information Progress Notes * Jong HIGUERA ODOB:1939 (85 yo M)Acc No.[id number]:04/26/2024 Progress Notes Patient: Jessica PLUMMERland Sadaf Provider: Bakari PÉREZ MD :1940 A ge:84 Y S ex:Male Date:04/26/2024 Address:[facility] [address] [place], [place] [address] Pcp:PANKAJ GONZALEZ Subjective: * Chief Complaints: * 1 . BPH w/Luts/ED. * HPI: M igrated HPI: Pt is a 84 y/o M who is here today for further evaluation and treatment involving BPH/LUTS and ED. On Flomax BID and finasteride. * Medical History: Objective: * Vitals: Assessment: Plan: * Treatment: * Billing Information: * Visit Code: * Procedure Codes: * Electronic signature of AUST IN MD BETO on 03/13/2025 at 09:30 AM WARD SECRETARY Sign off status: Pending * Provider: Bakari PÉREZ MD Date: 0 04/26/2024 Generated for Jaun pillai/Tyesha/Declan on: 1 05/13/2024 09:30 AM WARD SECRETARY
--- OUTSIDE RECORDS SUMMARY | 2024-08-24 11:00 | XMS_ITS ---
Author Organization [employer] [employer] Address [address] [facility] [place] [address] Care Team Providers Care Windows Systems Architect Name Role Phone JOSE BAUER Primary Care Provider Vadim soria ANA PÉREZ Unavailable [phone] Boom Donnelly Unavailable [phone] REASON FOR VISIT 2 mo f/u - ED/BPH Encounters Encounter Location Date Provider Diagnosis [employer] [employer] [address] [facility] [place] [address] 08/24/2024 Boom Donnelly Plan Of Treatment No Information Progress Notes * Jong HIGUERA ODOB:1939 (85 yo M)Acc No.[id number]:08/24/2024 Progress Notes Patient: Jessica PLUMMERland Sadaf Provider: George Donnelly APRN :1940 A ge:84 Y S ex:Male Date:08/24/2024 Address:[facility] [address] Pcp:PANKAJ GONZALEZ Subjective: * Chief Complaints: * 1 . 2 mo f/u - ED/BPH. * Medical History: Objective: * Vitals: Assessment: Plan: * Treatment: * Billing Information: * Visit Code: * Procedure Codes: * Electronic signature of Joshua Donnelly APRN on 03/13/2025 at 09:30 AM MEDICAL SOCIAL CONSULTANT Sign off status: Pending * Provider: George Donnelly APRN Date: 0 08/24/2024 Generated for Jaun pillai/Tyesha/Declan on: 1 05/13/2024 09:30 AM MEDICAL SOCIAL CONSULTANT
--- OUTSIDE RECORDS SUMMARY | 2025-02-17 07:50 | XMS_ITS ---
Author Organization [employer] [facility], [facility] Address [address] [place] [address] Care Team Providers Care Channel Business Manager Name Role Phone JOSE BAUER Primary Care Provider Audelialebron ANA Larose Unavailable [phone] Allergies No Known Allergies Results Component Value Reference Range Notes Urinalysis, Routine Reviewed date:02/17/2025 02:15:38 PM Interpretation: Performing Lab: Notes/Report: Urine-Color yellow Appearance clear Glucose - Bilirubin - Ketones - Specific [place] 1.020 Occult Blood - pH 6.0 Urine Protein - Urobilinogen,Semi-Qn - Nitrite, Urine - WBC Esterase - REASON FOR VISIT UroGold f/u w/ IIEF Medications Medication SIG (Take, Route, Frequency, Duration) Notes Start Date End Date Status Tadalafil 5 MG 1 tablet Orally Once a day; Duration: 90 days 07/06/2024 07/01/2025 Active Tamsulosin HCl 0.4 MG 2 capsules Orally Once a day at bedtime Active Finasteride 5 MG 1 tablet Orally Once a day Active Dorzolamide HCl 2 % 1 drop into affected eye Ophthalmic Three times a day Active Tadalafil 20 MG 1 tablet as needed Orally PRN; Duration: 30 days 12/16/2024 12/11/2025 Not-Taking Latanoprost 0.005 % 1 drop into affected eye in the evening Ophthalmic Once a day Active Social History Tobacco Use: Social History Observation Description Date Details (start date - stop date) Never Smoker NA - NA Tobacco Control (Standard) Question Answer Notes Tobacco use: Nonsmoker AUDIT-C (Standard) Question Answer Notes Did you have a drink containing alcohol in the p ast year? No Points 0 Interpretation Negative Vital Signs Blood pressure systolic 189 mm Hg 02/18/20 25 Blood pressure diastolic 91 mm Hg 025 Heart Rate 61 /min 02/17/2025 Height 72 in 02/17/2025 Weight 180 lbs 02/17/2025 BMI 24.41 kg/m2 02/17/2025 Height-cm 182.88 cm 02/17/2025 Weight-kg 81.65 kg 02/17/2025 Procedures Procedure Date Ordered Date Performed Result Body Sit e Bladder Scan 02/17/2025 02/17/2025 0 mL Encounters Encounter Location Date Provider Diagnosis [facility] [address] [place] [address] 02/17/2025 ANA PÉREZ BPH (benign prostatic hyperplasia) N40.0 and ED (erectile dysfunction) N52.9 Assessments Encounter Date Diagnosis (ICD Code) Assessment Notes Treatment Notes Treatment Clinical Notes Section Notes 02/17/2025 BPH (benign prostatic hyperplasia) (ICD-10 - N40.0) 85 y/o M with stable BPH/LUTS on Flomax BID and Finasteride. 02/17/2025 ED (erectile dysfunction) (ICD-10 - N52.9) 85 y/o M with stable BPH/LUTS on Flomax BID and Finasteride. Plan Of Treatment No Information Progress Notes * KALEN Jong ODOB:1939 (85 yo M)Acc No.[id number]:02/17/2025 Progress Notes Patient: Jong PLUMMER O Provider: Bakari PÉREZ MD :1940 A ge:85 Y S ex:Male Date:02/17/2025 Address:[address] [place], [place] [address] Pcp:PANKAJ GONZALEZ Subjective: * Chief Complaints: * 1 . UroGold f/u w/ IIEF. * HPI: M igrated HPI: Patient is a 85 y/o M with BPH/LUTS and ED. On Flomax 0.8 mg and finasteride. UA clear today. PVR 50ml. Notes to trial Levitra 20mg with little to no improvement in erections. Here today after completing UroGold treatment. IIEF post UroGold of 5. * Medical History: H igh cholesterol, HTN, ED, BPH w/LUTS. * Surgical History: h eart stents , appendectomy . * Hospitalization/Major Diagno stic Procedure: c 2019. * Family History: [place] Grandmother: 67 yrs, diagnosed with Other malignant neoplasm without specification of site. * Social History: T obacco Use: T obacco Control (Standard) T obacco use: N onsmoker. D rug/Alcohol: D rugs H ave you used drugs other than those for medical reasons in the past 12 months??No. D o you drink alcohol?: No, never. AUDIT-C (Standard) D id you have a drink containing alcohol in the past year? N o, P oints 0 , I nterpretation N egative. * Medications: T aking Latanoprost 0.005 % Solution 1 drop into affected eye in the evening Ophthalmic Once a day , Taking Dorzolamide HCl 2 % Solution 1 drop into affected eye Ophthalmic Three times a day , Taking Finasteride 5 MG Tablet 1 tablet Orally Once a day , Taking Tamsulosin HCl 0.4 MG Capsule 2 capsules Orally Once a day at bedtime , Taking Tadalafil 5 MG Tablet 1 tablet Orally Once a day , stop date 07/01/2025, Not- Taking Tadalafil 20 MG Tablet 1 tablet as needed Orally PRN , stop date 12/11/2025, Medication List reviewed and reconciled with the patient * Allergies: N .K.D.A. Objective: * Vitals: B P: 189/91 mm Hg, HR: 61 /min, Wt: 180 lbs, Wt-k.65 kg, Ht: 72 in, Ht-cm: 182.88 cm, BMI: 24.41 Index, Body Surface Area: 2.03. Assessment: * Assessment: 1. B PH (benign prostatic hyperplasia) - N40.0 (Primary) 2 . E D (erectile dysfunction) - N52.9 85 y/o M with stable BPH/LUT S on Flomax BID and Finasteride. Plan: * Treatment: Value Reference Range U rine-Color yellow * A ppearance clear * G lucose - * B ilirubin - * K etones - * S pecific [place] 1.020 * O ccult Blood - * p H 6.0 * U rine Protein - * U robilinogen,Semi-Qn - * N itrite, Urine - * W BC Esterase - ?Procedure: Bladder Scan (Performed Date - 02/17/2025)?0 mL * Procedure Codes: 8 1003 URINALYSIS, AUTO, W/O SCOPE, 74172 US URINE CAPACITY MEASURE * Preventive Medicine: Counseling: B P Management: R EFERRAL TO ALTERNATIVE / PRIMARY CARE PROVIDER:?Referral to doctor. * Billing Information: * Visit Code: * Procedure Codes: 66137 URINALYSIS, AUTO, W/O SCOPE. 82907 US URINE CAPACITY MEASURE. * Electronic signature of AUST IN MD BETO on 03/13/2025 at 09:30 AM SENIOR INVESTIGATOR Sign off status: Pending * Provider: Bakari PÉREZ MD Date: Generated for Jaun pillai/Tyesha/eTransmitting on: 05/13/2024 09:30 AM SENIOR INVESTIGATOR
[2025-03-13] VITALS (11 sets, daily range): BP systolic 149–224; BP diastolic 52–122; PULSE 37–71; RESP 14–21; TEMP 36.6–36.8; O2SAT 93–97; BMI 3515.0; BMI 24.5
--- OUTSIDE RECORDS SUMMARY | 2025-03-13 09:30 | XMS_ITS | Encounter Summary ---
Author Organization [facility] Address [address] [place] [address] Care Team Providers Care Revenue Integrity Analyst Name Role Phone VIJAY George Sr., Michael Dave Primary Care Pro vider Encounter Details Date Type Department Care Team (Latest Contact Info) Description 04/19/2003 Outpatient Historical [facility] [place] [address] [place] [address] Alvaro Cooney, NO ADDRESS ON FILE ACUTE BRONCHITIS (Primary Dx) Social History Tobacco Use Types Packs/Day Years Used Date Smoking Tobacco: Never Assessed Sex and Gender Information Value Date Recorded Sex Assigned at Not on file Legal Sex Male 4:56 AM EGG SORTER Gender Identity Not on file Sexual Orientation Not on file documented as of this encounter Plan of Treatment Not on file documented as of this encounter Visit Diagnoses Diagnosis Acute bronchitis- Primary documented in this encounter Additional Health Concerns Infection Onset Date Last Indicated Resolved Time COVID-19 01/16/2020 01/16/2020 02/05/2020 8:09 PM CDT COVID-19 02/07/2020 02/07/2020 03/08/2020 8:08 PM EGG SORTER documented as of this encounter Care Teams Revenue Integrity Analyst Relationship Specialty Start Date End Date Thom George Sr., FNP [address] [place] [address] PCP - General NURSE PRACTITIONER 01/27/15 documented as of this encounter
--- OUTSIDE RECORDS SUMMARY | 2025-03-13 09:30 | XMS_ITS | Patient Health Record ---
Author Organization [facility] Address [address] [place] [address] Care Team Providers Care Plastics Fabricator Or Welder Name Role Phone JOSE BAUER Primary Care Provider Vadim soria ANA DODGE Unavailable [phone] ENRIQUEDEEDEE Unavailable [phone] Cony Deedee Unavailable [phone] Allergies No Known Allergies Results Component Value Reference Range Notes Urinalysis, Routine Reviewed date:02/17/2025 02:15:38 PM Interpretation: Performing Lab: Notes/Report: Urine-Color yellow Appearance clear Glucose - Bilirubin - Ketones - Specific [place] 1.020 Occult Blood - pH 6.0 Urine Protein - Urobilinogen,Semi-Qn - Nitrite, Urine - WBC Esterase - Urinalysis, Routine Reviewed date:07/05/2024 01:40:56 PM Interpretation: Performing Lab: Notes/Report: Urine-Color yellow Appearance clear Glucose - Bilirubin - Ketones - Specific [place] 1.015 Occult Blood - pH 6.0 Urine Protein - Urobilinogen,Semi-Qn - Nitrite, Urine - WBC Esterase - Reason For Referral No Information Medications Medication SIG (Take, Route, Frequency, Duration) [...] eye Ophthalmic Three times a day Active Latanoprost 0.005 % 1 drop into affected eye in the evening Ophthalmic Once a day Active Tadalafil 20 MG 1 tablet as needed Orally PRN; Duration: 30 days 12/16/2024 12/11/2025 Not-Taking Social History Tobacco Use: Social History Observation Description Date Details (start date - stop date) Never Smoker NA - NA Tobacco Control (Standard) Question Answer Notes Tobacco use: Nonsmoker AUDIT-C (Standard) Question Answer Notes Did you have a drink containing alcohol in the p ast year? No Points 0 Interpretation Negative Problems Problem Type SNOMED Code ICD Code Onset Dates Problem Status W/U Status Risk Notes Problem Benign prostatic hyperplasia (975438595) BPH (benign prostatic hyperplasia) (N40.0) Active confirmed Problem Erectile dysfunction (disorder) (980640411) ED (erectile dysfunction) (N52.9) Active confirmed Problem Erectile dysfunction (566366105) Erectile dysfunction (N52.9) Active confirmed Vital Signs Heart Rate 61 /min 02/17/2025 Height-cm 182.88 cm 02/17/2025 Blood pressure diastolic 91 mm Hg 02/17/2025 Weight-kg 81.65 kg 02/17/2025 Height 72 in 02/17/2025 Blood pressure systolic 189 mm Hg 02/17/2025 Weight 180 lbs 02/17/2025 BMI 24.41 kg/m2 02/17/2025 Procedures Procedure Date Ordered Date Performed Result Body Sit e Bladder Scan 07/05/2024 07/05/2024 PVR 30ML Bladder Scan 02/17/2025 02/17/2025 0 mL Encounters Encounter Location Date Provider Diagnosis Private Practice Urology, [facility] [address] [place] [address] 02/17/2025 [facility] BPH (benign prostati c hyperplasia) N40.0 and ED (erectile dysfunction) N52.9 Private Practice Urology, [facility] [address] [place] [address] 07/05/2024 ANA DODGE BPH (benign prostati c hyperplasia) N40.0 and ED (erectile dysfunction) N52.9 [facility] [address] [place] [address] 12/02/2024 [facility] Erectile dysfunction N52.9 [employer], [facility] [address] [place] [address] 12/09/2024 ANA DODGE Erectile dysfunction N52.9 [facility] [address] [place] [address] 12/16/2024 ANA DODGE Erectile dysfunction N52.9 [facility] [address] [place] [address] 12/23/2024 ANA DODGE Erectile dysfunction N52.9 [facility] [address] [place] [address] 12/28/2024 DEEDEE NUNEZ Erectile dysfunction N52.9 [facility] [address] [place] [address] 01/05/2025 DEEDEE NUNEZ Erectile dysfunction N52.9 [facility] [address] [place] [address] 11/22/2024 ANA DODGE Assessments Encounter Date Diagnosis (ICD Code) Assessment Notes Treatment Notes Treatment Clinical Notes Section Notes 01/05/2025 Erectile dysfunction (ICD-10 - N52.9) Pt here for UroGold #6. He tolerated well and will return as scheduled for symptom reassessment and IIEF. 12/28/2024 Erectile dysfunction (ICD-10 - N52.9) Pt here for UroGold #5. He tolerated well and will return in 1wk for treatment #6 of 6. 12/23/2024 Erectile dysfunction (ICD-10 - N52.9) Pt here for UroGold #4. He tolerated well and will return in 1wk for treatment #5 of 6. 12/16/2024 Erectile dysfunction (ICD-10 - N52.9) Pt here for UroGold #3. He tolerated well and will return in 1wk for treatment #4 of 6. He is currently on daily cialis and is also taking 20mg PRN and out of his daily cialis. He would like to start Cialis 20mg PRN and stop the daily. New Rx sent. 12/09/2024 Erectile dysfunction (ICD-10 - N52.9) Pt here for UroGold #2. He tolerated well and will return in 1wk for treatment #3 of 6. 12/02/2024 Erectile dysfunction (ICD-10 - N52.9) Pt here for UroGold #1. He tolerated well and will return in 1wk for treatment #2 of 6. 07/05/2024 BPH (benign prostatic hyperplasia) (ICD-10 - N40.0) 84 y/o M with stable BPH/LUTS on Flomax BID and Finasteride. IPSS 12. PVR 50cc. Levitra no improvement with ED. Involving the ED, we discussed the concept behind ED and the treatment options for that include PDE 5 inhibitors (E.G Viagra, Cialis, Levitra), vacuum erection devices, UroGold, intracavernosal injections/intraur ethral therapies, and surgical treatment with placement of an inflatable penile prosthesis. Patient is not interested in surgical interventions. Rx sent today for Cialis 5mg for dual indications for ED and BPH/LUTS. UroGold Pamphlets given today. He will return in 2m with UA,PVR and see Cony Nur APRN. Return sooner with any concerns. Plan: UroGold Pamphlets given today -continue flomax and proscar - Rx sent today Cialis 5mg for dual indications -RTC in 2months with UA,PVR and see Deedee Donnelly APRN IMelita Scribe, am scribing for, and in the presence of, Dr. Dodge. I, Dr. Ana Dodge, personally performed the services prescribed in this documentation, as scribed by Melita Pope, in my presence, and it is both accurate and complete. 07/05/2024 ED (erectile dysfunction) (ICD-10 - N52.9) 84 y/o M with stable BPH/LUTS on Flomax BID and Finasteride. IPSS 12. PVR 50cc. Levitra no improvement with ED. Involving the ED, we discussed the concept behind ED and the treatment options for that include PDE 5 inhibitors (E.G Viagra, Cialis, Levitra), vacuum erection devices, UroGold, intracavernosal injections/intraur ethral therapies, and surgical treatment with placement of an inflatable penile prosthesis. Patient is not interested in surgical interventions. Rx sent today for Cialis 5mg for dual indications for ED and BPH/LUTS. UroGold Pamphlets given today. He will return in 2m with UA,PVR and see Cony Nur APRN. Return sooner with any concerns. Plan: UroGold Pamphlets given today -continue flomax and proscar - Rx sent today Cialis 5mg for dual indications -RTC in 2months with UA,PVR and see Deedee Donnelly APRN I, Stormy Kapelski, [place], am scribing for, and in the presence of, Dr. Dodge. I, Dr. Ana Dodge, personally performed the services prescribed in this documentation, as scribed by Melita Pope, in my presence, and it is both accurate and complete. 02/17/2025 BPH (benign prostatic hyperplasia) (ICD-10 - N40.0) 85 y/o M with stable BPH/LUTS on Flomax BID and Finasteride. 02/17/2025 ED (erectile dysfunction) (ICD-10 - N52.9) 85 y/o M with stable BPH/LUTS on Flomax BID and Finasteride. Plan Of Treatment No Information Insurance Providers Payer Name Payer Address Payer Phone Subscriber Number Group Number Insured Name Patient Relationship to Insured Coverage Start Date Coverage End Date [place] Replacement [address] [place], [place] [phone] [id number] Jong Higuera Self - patient is the insured Medical (General) History Medical History History ICD Code high cholesterol HTN ED BPH w/LUTS Surgical History Surgery Date(Month/Year) heart stents appendectomy Hospitalization History Reason Date(Month/Year) covid 2019
--- OUTSIDE RECORDS SUMMARY | 2025-03-13 09:30 | XMS_ITS | Encounter Summary ---
Author Organization [facility] Address [address] [place] [address] Care Team Providers Care Meteorology Professor Name Role Phone Doris Morrison, Thom LINARES Primary Care Pro vider Encounter Details Date Type Department Care Team (Late st Contact Info) Description 02/03/2020 Lab Requisition [facility] Laboratory Services [id number] [place] [phone] Thom Vickers MD [address] [place] [phone] Social History Tobacco Use Types Packs/Day Years Used Date Smoking Tobacco: Never Smokeless Tobacco: Never Alcohol Use Standard Drinks/Week Comments No 0 (1 standard drink = 0.6 oz pur e alcohol) Sex and Gender Information Value Date Recorded Sex Assigned at Not on file 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 No / Unsure 01/04/2020 10:01 AM CDT documented as of this encounter Plan of Treatment Not on file documented as of this encounter Procedures Procedure Name Priority Date/Time Associated Diagnosis Comments CBC WITHOUT DIFFERENTIAL Stat 02/03/2020 4:00 AM CDT MAGNESIUM LEVEL Stat 02/03/2020 4:00 AM CDT COMPREHENSIVE METABOLIC PANEL Stat 02/03/2020 4:00 AM CDT documented in this encounter Results * MAGNESIUM LEVEL (02/03/2020 4:00 AM CDT) MAGNESIUM 1.8 1.6 - 2.4 mg/dL 02/03/2020 7:14 AM CDT [facility] [employer] [facility] Blood Collection / Unknown 02/03/2020 4:00 AM CDT 02/03/2020 6:43 AM CDT Thom Vickers MD CHEMISTRY ORDERABLES Final Resu lt [facility] [employer] [facility] [address] [place] [address] * (ABNORMAL) COMPREHENSIVE METABOLIC PANEL (02/03/2020 4:00 AM CDT) SODIUM 133(L) 136 - 145 mmol/L 02/03/2020 7:14 AM CDT [facility] [employer] [facility] POTASSIUM 4.4 3.5 - 5.1 mmol/L 02/03/2020 7:14 AM CDT [facility] [employer] [facility] CHLORIDE 103 98 - 107 mmol/L 02/03/2020 7:14 AM CDT [facility] [employer] [facility] CO2 23 22 - 29 mmol/L 02/03/2020 7:14 AM CDT [facility] [employer] [facility] CALCIUM 8.1(L) 8.8 - 10.2 mg/dL 02/03/2020 7:14 AM CDT [facility] [employer] [facility] BUN 18 8 - 23 mg/dL 02/03/2020 7:14 AM CDT [facility] [employer] [facility] CREATININE 0.88 0.67 - 1.17 mg/dL 02/03/2020 7:14 AM CDT [facility] [employer] [facility] Comment:The GFR result is no t clinically significant on patients <18 or >70 years of age. GLUCOSE 99 74 - 99 mg/dL 02/03/2020 7:14 AM CDT [facility] [employer] [facility] TOTAL PROTEIN 4.7(L) 6.4 - 8.3 g/dL 02/03/2020 7:14 AM [facility] ALBUMIN 2.1(L) 3.5 - 5.2 g/dL 02/03/2020 7:14 AM [facility] BILIRUBIN TOTAL 0.5 0.2 - 1.0 mg/dL 02/03/2020 7:14 AM [facility] ALKALINE PHOSPHATASE 81 40 - 129 U/L 02/03/2020 7:14 AM [facility] AST 42 10 - 50 U/L 02/03/2020 7:14 AM [facility] ALT 68(H) <=50 U/L 02/03/2020 7:14 AM [facility] GFR >60 mL/min/1.7 3 sq meter 02/03/2020 7:14 AM [facility] Comment: eGFR has not been validated for use in the elderly (> 70 years of age), women, patients with serious co-morbid conditions, or persons with extremes of body size or muscle mass and should also be interpreted with caution in patients with acute kidney failure, dialysis dependent patients, patients reporting exceptional dietary intake (e.g. vegetarian diet, high protein diets, creatine supplementation), and patients with severe liver disease. Based on National Kidney Disease Education Program If patient is , please refer to the GFR result. GFR, >60 mL/min/1.7 3 sq meter 02/03/2020 7:14 AM T [facility] ANION GAP 7(L) 9 - 20 mmol/L 02/03/2020 7:14 AM [facility] Blood Collection / Unknown 02/03/2020 4:00 AM CDT 02/03/2020 6:43 AM CDT us Thom Vickers MD CHEMISTRY ORDERABLES Final Resu lt [facility] [address] [place] [address] * (ABNORMAL) CBC WITHOUT DIFFERENTIAL (02/03/2020 4:00 AM CDT) WBC 8.5 4.8 - 10.8 K/uL 02/03/2020 7:41 AM CDT [facility] RBC 3.68(L) 4.60 - 6.20 M/uL 02/03/2020 7:41 AM CDT [facility] HEMOGLOBIN 11.4(L) 14.0 - 18.0 g/dL 02/03/2020 7:41 AM CDT [facility] HEMATOCRIT 34.3(L) 41.0 - 53.0 % 02/03/2020 7:41 AM CDT [facility] MCV 93.2 84.0 - 103.0 fL 02/03/2020 7:41 AM CDT [facility] MCH 31.0 27.0 - 34.0 pg 02/03/2020 7:41 AM CDT [facility] MCHC 33.2 30.0 - 35.0 g/dL 02/03/2020 7:41 AM CDT [facility] PLATELETS 138(L) 140 - 440 K/uL 02/03/2020 7:41 AM CDT [facility] MPV 10.3 8.9 - 12.8 fL 02/03/2020 7:41 AM CDT [facility] RDW 13.0 11.0 - 14.5 % 02/03/2020 7:41 AM CDT [facility] RDW-STDEV 44.2 37.0 - 54.0 fL 02/03/2020 7:41 AM CDT [facility] Blood Collection / Unknown 02/03/2020 4:00 AM CDT 02/03/2020 6:42 AM CDT us Thom Vickers MD HEMATOLOGY ORDERABLES Final Res ult [facility] [address] [place], [place] [id number] documented in this encounter Visit Diagnoses Not on filedocumented in this encounter Additional Health Concerns Infection Onset Date Last Indicated Resolved Time COVID-19 01/16/2020 01/16/2020 02/05/2020 8:09 PM CDT COVID-19 02/07/2020 02/07/2020 03/08/2020 8:08 PM BOWL ATTENDANT documented as of this encounter Care Teams Meteorology Professor Relationship Specialty Start Date End Date Doris Morrison, VIJAY [address] [place] [address] PCP - General NURSE PRACTITIONER 01/27/15 documented as of this encounter
--- OUTSIDE RECORDS SUMMARY | 2025-03-13 09:30 | XMS_ITS | Encounter Summary ---
Author Organization [facility] Address [address] [place] [address] Care Team Providers Care Thread Spinner Name Role Phone VIJAY George Sr., Michael Dave Primary Care Pro vider Reason for Referral * Outpatient Services (Routine) - Closed Specialty Diagnoses / Procedures Referred By Tabitha grubbs Referred To Contact Radiology Diagnoses Testicular abnormality Procedures US TESTES [employer] Thom George Sr., FNP [address] [place] [address] Phone: tel: fax: [facility] [address] [place] [address] Phone: tel: fax: Referral ID Status Reason Start Date Expiration Date V isits Requested Visits Authorized [id number] Closed MTN View CTS to Schedule (SGF) 05/22/2015 06/21/2016 1 1 MOTIVE HEAVY MECHANIC Encounter Details Date Type Department Care Team (Latest Contact Info) Description 05/22/2015 Ancillary Orders [facility] Centralized Scheduling [address] [place] [phone] Thom George Sr., FNP [address] [place] [address] Testicular abnormality (Primary Dx) Social History Tobacco Use Types Packs/Day Years Used Date Smoking Tobacco: Never Smokeless Tobacco: Never Alcohol Use Standard Drinks/Week Comments No 0 (1 standard drink = 0.6 oz pur e alcohol) Sex and Gender Information Value Date Recorded Sex Assigned at Not on file Legal Sex Male 4:56 AM AUTOMOTIVE HEAVY MECHANIC Gender Identity Not on file Sexual Orientation Not on file documented as of this encounter Plan of Treatment Not on file documented as of this encounter Results * US TESTES W [employer] (05/22/2015 11:39 AM AUTOMOTIVE HEAVY MECHANIC) Anatomical Region Laterality Modality Pelvis Ultrasound 05/22/2015 11:1 8 AM AUTOMOTIVE HEAVY MECHANIC Impressions 05/22/2015 3:45 PM AUTOMOTIVE HEAVY MECHANIC Impression: 1. Large bilateral hydroceles. 2. Normal flow to both the right and left testicle. 3. Both testicles appear to be heterogeneous in appearance without discrete soft tissue masses. Left testicle is slightly more heterogeneous than the right and followup evaluation in three months is recommended. Yield is probably low. ernesto maylin - uploaded from [employer] [facility] 05/22/2015 3:45 PM AUTOMOTIVE HEAVY MECHANIC Exam: US TESTES W [employer] Date/Time of Exam: May 22, 2015 11:39:13 AM History: Testicular abnormality. Findings: Testicular ultrasound demonstrates the right testicle to measure 3.9 x 2.3 x 2.8 cm and the left testicle to measure 3.7 x 2.1 x 2.6 cm. Both testicles appear to be mildly heterogeneous. Small cyst is seen in the left epididymis. Both the right and left epididymis appears to be mildly prominent and heterogeneous. There are large bilateral hydroceles. us Thom George Sr., WEIGHT ENGINEER US ORDERABLES F inal Result documented in this encounter Visit Diagnoses Diagnosis Testicular abnormality- Primary Unspecified disorder of male genital organs Testicular abnormality Unspecified disorder of male genital organs documented in this encounter Additional Health Concerns Infection Onset Date Last Indicated Resolved Time COVID-19 01/16/2020 01/16/2020 02/05/2020 8:09 PM CDT COVID-19 02/07/2020 02/07/2020 03/08/2020 8:08 PM AUTOMOTIVE HEAVY MECHANIC documented as of this encounter Care Teams Thread Spinner Relationship Specialty Start Date End Date Doris Morrison, VIJAY Brandon [address] [place] [address] PCP - General NURSE PRACTITIONER 01/27/15 documented as of this encounter
--- OUTSIDE RECORDS SUMMARY | 2025-03-13 09:30 | XMS_ITS | Encounter Summary ---
Author Organization [facility] Address [address] [place] [address] Care Team Providers Care Restaurant Floor Manager Name Role Phone Doris Morrison, Thom LINARES Primary Care Pro vider Encounter Details Date Type Department Care Team (Late st Contact Info) Description 2020 Lab Requisition [facility] Laboratory Services [id number] [place] [phone] Thom Vickers MD [address] [place] [phone] Social History Tobacco Use Types Packs/Day Years Used Date Smoking Tobacco: Never Smokeless Tobacco: Never Alcohol Use Standard Drinks/Week Comments No 0 (1 standard drink = 0.6 oz pur e alcohol) Sex and Gender Information Value Date Recorded Sex Assigned at Not on file 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 Gender Identity Not on file Sexual Orientation Not on file documented as of this encounter Plan of Treatment Not on file documented as of this encounter Procedures Procedure Name Priority Date/Time Associated Diagnosis Comments BASIC METABOLIC PANEL Stat 2020 3:30 AM CDT documented in this encounter Results * (ABNORMAL) BASIC METABOLIC PANEL (2020 3:30 AM CDT) SODIUM 134(L) 136 - 145 mmol/L 2020 5:45 AM CDT [facility] POTASSIUM 4.2 3.5 - 5.1 mmol/L 2020 5:45 AM CDT [facility] CHLORIDE 104 98 - 107 mmol/L 2020 5:45 AM T [facility] CO2 23 22 - 29 mmol/L 2020 5:45 AM [facility] CALCIUM 7.9(L) 8.8 - 10.2 mg/dL 2020 5:45 AM T [facility] BUN 16 8 - 23 mg/dL 2020 5:45 AM T [facility] CREATININE 0.83 0.67 - 1.17 mg/dL 2020 5:45 AM T [facility] Comment:The GFR result is no t clinically significant on patients <18 or >70 years of age. GLUCOSE 107(H) 74 - 99 mg/dL 2020 5:45 AM [facility] GFR >60 mL/min/1.7 3 sq meter 2020 5:45 AM [facility] Comment: eGFR has not been validated for [...] result. GFR, >60 mL/min/1.7 3 sq meter 2020 5:45 AM T [facility] ANION GAP 7(L) 9 - 20 mmol/L 2020 5:45 AM 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
--- OUTSIDE RECORDS SUMMARY | 2025-03-13 09:30 | XMS_ITS | Encounter Summary ---
Author Organization [facility] Address [address] [place] [address] Care Team Providers Care Room Attendants Name Role Phone Doris Morrison, VIJAY, Thom Bhatt Primary Care Pro vider Encounter Details Date Type Department Care Team (Late st Contact Info) Description 02/07/2020 Lab Requisition [facility] Laboratory Services [id number] [place] [phone] Mulugeta Fang MD NO ADDRESS ON FILE Social History Tobacco Use Types Packs/Day Years Used Date Smoking Tobacco: Never Smokeless Tobacco: Never Alcohol Use Standard Drinks/Week Comments No 0 (1 standard drink = 0.6 oz pur e alcohol) Sex and Gender Information Value Date Recorded Sex Assigned at Not on file 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 Gender Identity Not on file Sexual Orientation Not on file documented as of this encounter Plan of Treatment Not on file documented as of this encounter Procedures Procedure Name Priority Date/Time Associated Diagnosis Comments 2019 NOVEL CORONAVIRUS (COVID-19) PCR DETECTION Stat 02/07/2020 3:12 PM CDT documented in this encounter Results * (ABNORMAL) 2019 NOVEL CORONAVIRUS (COVID-19) PCR DETECTION (02/07/2020 3:12 PM CDT) COVID-19 PCR DETECTED( A) NOT DETECTED 02/08/2020 10:53 AM CDT [facility] Comment: A Detected result is considered a positive test result for COVID-19. This indicates that RNA from SARS-CoV-2 (formerly 2019-nCoV) was detected, and the patient is infected with the virus and presumed to be contagious. If requested by public health authority, specimen will be sent for additional testing. Please review the Fact Sheets and FDA authorized labeling available for health care providers and patients using the following websites: https://www.[employer]/home/Covid-19/HCP/[facility]/fact- sheet.html https://www.[employer]/home/Covid-19/Patients/ [facility]/fact-sheet.html This test has been authorized by the FDA under an Emergency Use Authorization (EUA) for use by authorized laboratories. Due to the current public health emergency, [facility] is receiving a high volume of samples from a wide variety of swabs and media for COVID-19 testing. In order to serve patients during this public health crisis, samples from appropriate clinical sources are being tested. Negative test results derived from specimens received in non-commercially manufactured viral collection and transport media, or in media and sample collection kits not yet authorized by FDA for COVID-19 testing should be cautiously evaluated and the patient potentially subjected to extra precautions such as additional clinical monitoring, including collection of an additional specimen. Methodology: Nucleic Acid Amplification Test (NAAT) includes RT-PCR or TMA Additional information about COVID-19 can be found at the [facility] website: www.[employer]/Covid19. Upper Respiratory ENTIRE NASOPHARYNX / Unknown Collection / Unknown 02/07/2020 3:12 PM CDT 02/07/2020 3:52 PM CDT Narrative [facility] - 02/08/2020 10:53 AM CDT Performing Organization Information: Site ID: [id number] Name: [facility] Address: [address] [address] Director: Kenton Martinez D.O., MPH us Mulugeta Fang MD MICROBIOLOGY - GENERAL ORDERAB LES Final Result [facility] [phone] documented in this encounter Visit Diagnoses Not on filedocumented in this encounter Additional Health Concerns Infection Onset Date Last Indicated Resolved Time COVID-19 02/07/2020 02/07/2020 03/08/2020 8:08 PM FORM RAISER documented as of this encounter Care Teams Room Attendants Relationship Specialty Start Date End Date Doris Morrison, VIJAY Brandon [address] [place] [address] PCP - General NURSE PRACTITIONER 01/27/15 documented as of this encounter
--- OUTSIDE RECORDS SUMMARY | 2025-03-13 09:30 | XMS_ITS | Encounter Summary ---
Author Organization [facility] Address [address] [place] [address] Care Team Providers Care Medical Doctor Md/Medical Director Name Role Phone Doris Morrison, Thom LINARES Primary Care Pro vider Encounter Details Date Type Department Care Team (Late st Contact Info) Description 01/29/2020 Lab Requisition [facility] Laboratory Services [address] [place] [phone] Thom Vickers MD [address] [place] [phone] Social History Tobacco Use Types Packs/Day Years Used Date Smoking Tobacco: Never Smokeless Tobacco: Never Alcohol Use Standard Drinks/Week Comments No 0 (1 standard drink = 0.6 oz pur e alcohol) Sex and Gender Information Value Date Recorded Sex Assigned at Not on file Legal Sex Male 4:56 AM ACTUARIAL INTERNSHIP Gender Identity Not on file Sexual Orientation [...] Associated Diagnosis Comments BASIC METABOLIC PANEL Stat 01/29/2020 4:38 AM CDT documented in this encounter Results * (ABNORMAL) BASIC METABOLIC PANEL (01/29/2020 4:38 AM CDT) SODIUM 127(L) 136 - 145 mmol/L 01/29/2020 5:46 AM [facility] POTASSIUM 4.1 3.5 - 5.1 mmol/L 01/29/2020 5:46 AM T [facility] CHLORIDE 98 98 - 107 mmol/L 01/29/2020 5:46 AM [facility] Bettery [facility] CO2 22 22 - 29 mmol/L 01/29/2020 5:46 AM [facility] CALCIUM 7.9(L) 8.8 - 10.2 mg/dL 01/29/2020 5:46 AM [facility] BUN 36(H) 8 - 23 mg/dL 01/29/2020 5:46 AM [facility] CREATININE 0.93 0.67 - 1.17 mg/dL 01/29/2020 5:46 AM [facility] Comment:The GFR result is no t clinically significant on patients <18 or >70 years of age. GLUCOSE 96 74 - 99 mg/dL 01/29/2020 5:46 AM [facility] GFR >60 mL/min/1.7 3 sq meter 01/29/2020 5:46 AM [facility] Comment: eGFR has not [...] result. GFR, >60 mL/min/1.7 3 sq meter 01/29/2020 5:46 AM [facility] Bettery [facility] ANION GAP 7(L) 9 - 20 mmol/L 01/29/2020 5:46 AM [facility] Blood Collection / Unknown 01/29/2020 4:38 AM CDT 01/29/2020 5:25 AM CDT us Thom Vickers MD CHEMISTRY ORDERABLES Final Resu lt [facility] [address] [place] [address] documented in this encounter Visit Diagnoses Not on filedocumented in this encounter Additional Health Concerns Infection Onset Date Last Indicated Resolved Time COVID-19 01/16/2020 01/16/2020 02/05/2020 8:09 PM CDT COVID-19 02/07/2020 02/07/2020 03/08/2020 8:08 PM ACTUARIAL INTERNSHIP documented as of this encounter Care Teams Medical Doctor Md/Medical Director Relationship Specialty Start Date End Date Doris Morrison, VIJAY [address] [place] [address] PCP - General NURSE PRACTITIONER 01/27/15 documented as of this encounter
--- OUTSIDE RECORDS SUMMARY | 2025-03-13 09:30 | XMS_ITS | Encounter Summary ---
Author Organization [facility] Address [address] [place] [address] Care Team Providers Care Cpc Name Role Phone VIJAY George Sr., Michael Dave Primary Care Pro vider Reason for Referral * Outpatient Services (Routine) - Closed Specialty Diagnoses / Procedures Referred By Tabitha grubbs Referred To Contact Radiology Diagnoses Testicular abnormality Procedures US TESTES W [employer]CR[employer] Thom George Sr., FNP [address] [place] [address] Phone: tel: fax: [facility] [address] [place] [address] Phone: tel: fax: Referral ID Status Reason Start Date Expiration Date V isits Requested Visits Authorized [id number] Closed MTN View CTS to Schedule (SGF) 09/06/2015 10/06/2016 1 1 Encounter Details Date Type Department Care Team (Latest Contact Info) Description 09/06/2015 Ancillary Orders [facility] Centralized Scheduling [address] [place] [phone] Thom George Sr., FNP [address] [place] [address] Testicular abnormality (Primary Dx) Social History Tobacco Use Types Packs/Day Years Used Date Smoking Tobacco: Never Smokeless Tobacco: Never Alcohol Use Standard Drinks/Week Comments No 0 (1 standard drink = 0.6 oz pur e alcohol) Sex and Gender Information Value Date Recorded Sex Assigned at Not on file 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 Large right hydrocele. 2. Otherwise, normal testicular ultrasound. [id number] Narrative 09/11/2015 2:32 PM CDT Exam: US TESTES W [employer] Date/Time of Exam: 09/11/2015 11:29 AM Reason For Exam: Testicular abnormality. Findings: Testicular ultrasound demonstrates the right testicle measures 3.3 x 3.1 x 3.1 cm and the left testicle measures 3.3 x 1.7 x 3.1 cm. Testicular masses are not identified and there are no pathologic calcifications. 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 Pathologic calcifications are not evident. There is a large right hydrocele. us VIJAY Ny Sr. US ORDERABLES F inal Result documented in this encounter Visit Diagnoses Diagnosis Testicular abnormality- Primary Unspecified disorder of male genital organs Testicular abnormality Unspecified disorder of male genital organs documented in this encounter Additional Health Concerns Infection Onset Date Last Indicated Resolved Time COVID-19 01/16/2020 01/16/2020 02/05/2020 8:09 PM CDT COVID-19 02/07/2020 02/07/2020 03/08/2020 8:08 PM CASHIER OR CHECKER STOCK CLERK documented as of this encounter Care Teams Cpc Relationship Specialty Start Date End Date Doris Morrison, VIJAY [address] [place] [address] PCP - General NURSE PRACTITIONER 01/27/15 documented as of this encounter
--- OUTSIDE RECORDS SUMMARY | 2025-03-13 09:30 | XMS_ITS | Encounter Summary ---
Author Organization [facility] Address [address] [place] [address] Care Team Providers Care Systems Administration Analyst Name Role Phone Doris Morrison, Thom LINARES Primary Care Pro vider Encounter Details Date Type Department Care Team (Late st Contact Info) Description 01/30/2020 Lab Requisition [facility] Laboratory Services [phone] [place] [phone] Thom Vickers MD [address] [place] [phone] Social History Tobacco Use Types Packs/Day Years Used Date Smoking Tobacco: Never Smokeless Tobacco: Never Alcohol Use Standard Drinks/Week Comments No 0 (1 standard drink = 0.6 oz pur e alcohol) Sex and Gender Information Value Date Recorded Sex Assigned at Not on file Legal Sex Male 4:56 AM 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 Gender Identity Not on file Sexual Orientation [...] Associated Diagnosis Comments BASIC METABOLIC PANEL Stat 01/30/2020 3:10 AM CDT documented in this encounter Results * (ABNORMAL) BASIC METABOLIC PANEL (01/30/2020 3:10 AM CDT) SODIUM 130(L) 136 - 145 mmol/L 01/30/2020 5:46 AM [facility] POTASSIUM 4.2 3.5 - 5.1 mmol/L 01/30/2020 5:46 AM T [facility] CHLORIDE 99 98 - 107 mmol/L 01/30/2020 5:46 AM [facility] CO2 21(L) 22 - 29 mmol/L 01/30/2020 5:46 AM [facility] CALCIUM 7.9(L) 8.8 - 10.2 mg/dL 01/30/2020 5:46 AM [facility] BUN 30(H) 8 - 23 mg/dL 01/30/2020 5:46 AM [facility] CREATININE 0.87 0.67 - 1.17 mg/dL 01/30/2020 5:46 AM [facility] Comment:The GFR result is no t clinically significant on patients <18 or >70 years of age. GLUCOSE 110(H) 74 - 99 mg/dL 01/30/2020 5:46 AM [facility] GFR >60 mL/min/1.7 3 sq meter 01/30/2020 5:46 AM [facility] Comment: eGFR has not been validated for [...] result. GFR, >60 mL/min/1.7 3 sq meter 01/30/2020 5:46 AM T [facility] ANION GAP 10 9 - 20 mmol/L 01/30/2020 5:46 AM [facility] Blood Collection / Unknown 01/30/2020 3:10 AM CDT 01/30/2020 5:24 AM CDT us Thom Vickers MD CHEMISTRY ORDERABLES Final Resu lt Performing Organization Address City/State/[facility] Co de Phone Number [facility] [address] [address] documented in this encounter Visit Diagnoses Not on filedocumented in this encounter Additional Health Concerns Infection Onset Date Last Indicated Resolved Time COVID-19 01/16/2020 01/16/2020 02/05/2020 8:09 PM CDT COVID-19 02/07/2020 02/07/2020 03/08/2020 8:08 PM ROSS FURNACE OPERATOR documented as of this encounter Care Teams Systems Administration Analyst Relationship Specialty Start Date End Date Doris Morrison, VIJAY [address] [place] [address] PCP - General NURSE PRACTITIONER 01/27/15 documented as of this encounter
--- OUTSIDE RECORDS SUMMARY | 2025-03-13 09:30 | XMS_ITS | Encounter Summary ---
Author Organization [facility] Address [address] [place] [address] Care Team Providers Care Scrap Hooker Name Role Phone Doris Morrison, Thom LINARES Primary Care Pro vider Encounter Details Date Type Department Care Team (Late st Contact Info) Description 01/31/2020 Lab Requisition [facility] Laboratory Services [phone] [place] [phone] Thom Vickers MD [address] [place] [phone] Social History Tobacco Use Types Packs/Day Years Used Date Smoking Tobacco: Never Smokeless Tobacco: Never Alcohol Use Standard Drinks/Week Comments No 0 (1 standard drink = 0.6 oz pur e alcohol) Sex and Gender Information Value Date Recorded Sex Assigned at Not on file Legal Sex Male 4:56 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 SERVICE AGENT Gender Identity Not on file Sexual Orientation [...] Associated Diagnosis Comments CBC WITHOUT DIFFERENTIAL Stat 01/31/2020 3:29 AM CDT MAGNESIUM LEVEL Stat 01/31/2020 3:29 AM CDT COMPREHENSIVE METABOLIC PANEL Stat 01/31/2020 3:29 AM CDT documented in this encounter Results * MAGNESIUM LEVEL (01/31/2020 3:29 AM CDT) Pathologist [facility] MAGNESIUM 2.0 1.6 - 2.4 mg/dL 01/31/2020 6:59 AM CDT [facility] [employer] [facility] Blood Collection / Unknown 01/31/2020 3:29 AM CDT 01/31/2020 6:38 AM CDT Thom Vickers MD CHEMISTRY ORDERABLES Final Resu lt [facility] [address] [place] [address] * (ABNORMAL) COMPREHENSIVE METABOLIC PANEL (01/31/2020 3:29 AM CDT) Pathologist [facility] SODIUM 130(L) 136 - 145 mmol/L 01/31/2020 6:59 AM CDT [facility] [employer] [facility] POTASSIUM 4.2 3.5 - 5.1 mmol/L 01/31/2020 6:59 AM CDT [facility] [employer] [facility] CHLORIDE 100 98 - 107 mmol/L 01/31/2020 6:59 AM CDT [facility] [employer] [facility] CO2 21(L) 22 - 29 mmol/L 01/31/2020 6:59 AM CDT [facility] [employer] [facility] CALCIUM 7.9(L) 8.8 - 10.2 mg/dL 01/31/2020 6:59 AM CDT [facility] [employer] [facility] BUN 28(H) 8 - 23 mg/dL 01/31/2020 6:59 AM CDT [facility] [employer] [facility] CREATININE 0.79 0.67 - 1.17 mg/dL 01/31/2020 6:59 AM CDT [facility] [employer] [facility] Comment:The GFR result is no t clinically significant on patients <18 or >70 years of age. GLUCOSE 96 74 - 99 mg/dL 01/31/2020 6:59 AM CDT [facility] TOTAL PROTEIN 4.8(L) 6.4 - 8.3 g/dL 01/31/2020 6:59 AM [facility] ALBUMIN 2.2(L) 3.5 - 5.2 g/dL 01/31/2020 6:59 AM [facility] BILIRUBIN TOTAL 0.6 0.2 - 1.0 mg/dL 01/31/2020 6:59 AM [facility] ALKALINE PHOSPHATASE 75 40 - 129 U/L 01/31/2020 6:59 AM T [facility] AST 41 10 - 50 U/L 01/31/2020 6:59 AM [facility] ALT 65(H) <=50 U/L 01/31/2020 6:59 AM T [facility] GFR >60 mL/min/1.7 3 sq meter 01/31/2020 6:59 AM [facility] Comment: eGFR has not been validated for [...] result. GFR, >60 mL/min/1.7 3 sq meter 01/31/2020 6:59 AM T [facility] ANION GAP 9 9 - 20 mmol/L 01/31/2020 6:59 AM T [facility] Blood Collection / Unknown 01/31/2020 3:29 AM CDT 01/31/2020 6:38 AM CDT us Thom Vickers MD CHEMISTRY ORDERABLES Final Resu lt [facility] [address] [place] [id number] * (ABNORMAL) CBC WITHOUT DIFFERENTIAL (01/31/2020 3:29 AM CDT) Pathologist [facility] WBC 9.7 4.8 - 10.8 K/uL 01/31/2020 6:47 AM CDT [facility] RBC 4.14(L) 4.60 - 6.20 M/uL 01/31/2020 6:47 AM CDT [facility] HEMOGLOBIN 12.7(L) 14.0 - 18.0 g/dL 01/31/2020 6:47 AM CDT [facility] HEMATOCRIT 38.6(L) 41.0 - 53.0 % 01/31/2020 6:47 AM CDT [facility] MCV 93.2 84.0 - 103.0 fL 01/31/2020 6:47 AM CDT [facility] MCH 30.7 27.0 - 34.0 pg 01/31/2020 6:47 AM CDT [facility] MCHC 32.9 30.0 - 35.0 g/dL 01/31/2020 6:47 AM CDT [facility] PLATELETS 187 140 - 440 K/uL 01/31/2020 6:47 AM CDT [facility] MPV 10.5 8.9 - 12.8 fL 01/31/2020 6:47 AM CDT [facility] RDW 12.6 11.0 - 14.5 % 01/31/2020 6:47 AM CDT [facility] RDW-STDEV 43.3 37.0 - 54.0 fL 01/31/2020 6:47 AM CDT [facility] Blood Collection / Unknown 01/31/2020 3:29 AM CDT 01/31/2020 6:38 AM CDT us Thom Vickers MD HEMATOLOGY ORDERABLES Final Res ult [facility] [address] [place] [address] documented in this encounter Visit Diagnoses Not on filedocumented in this encounter Additional Health Concerns Infection Onset Date Last Indicated Resolved Time COVID-19 01/16/2020 01/16/2020 02/05/2020 8:09 PM CDT COVID-19 02/07/2020 02/07/2020 03/08/2020 8:08 PM PASSENGER SERVICE AGENT documented as of this encounter Care Teams Scrap Hooker Relationship Specialty Start Date End Date Doris Morrison, VIJAY [address] [place] [address] PCP - General NURSE PRACTITIONER 01/27/15 documented as of this encounter
--- OUTSIDE RECORDS SUMMARY | 2025-03-13 09:30 | XMS_ITS | Encounter Summary ---
Author Organization [facility] Address [address] [place] [address] Care Team Providers Care Practical Nurse Clinical Coordinator Name Role Phone Doris Morrison, Thom LINARES Primary Care Pro vider Encounter Details Date Type Department Care Team (Late st Contact Info) Description 08/08/2011 Ancillary Orders Command Information [facility] [address] [place] [phone] Thom George Sr., FNP [address] [place] [address] Wheezing Social History Tobacco Use Types Packs/Day Years Used Date Smoking Tobacco: Never Assessed Sex and Gender Information Value Date Recorded Sex Assigned at Not on file 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 jermaine - transcribed in Epic - Narrative 08/08/2011 1:44 PM CDT DESCRIPTION: No previous studies for comparison. Upright PA and left lateral chest views, 1029 hours 08/08/2011, show no focal infiltrate or atelectasis. There is mild aortic tortuosity. Otherwise, cardiomediastinal silhouette appears unremarkable. 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 There appears to be old right clavicle fracture. Procedure Note Ba Bardales MD - 08/08/2011 DESCRIPTION: No previous studies for comparison. Upright PA and left lateral chest views, 1029 hours 08/08/2011, show nofocal infiltrate or atelectasis. There is mild aortic tortuosity.Otherwise, cardiomediastinal silhouette appears unremarkable. There ismild osteoarthritis of the spine. There appears to be old right claviclefracture. IMPRESSION Mild senescent change with no acute infiltrate or atelectasis seen. jermaine - transcribed in [facility] - Thom George Sr., VIJAY DIAGNOSTIC IMAGIN G ORDERABLES Final Result documented in this encounter Visit Diagnoses Diagnosis Wheezing Wheezing documented in this encounter Additional Health Concerns Infection Onset Date Last Indicated Resolved Time COVID-19 01/16/2020 01/16/2020 02/05/2020 8:09 PM CDT COVID-19 02/07/2020 02/07/2020 03/08/2020 8:08 PM CITY EDITOR documented as of this encounter Care Teams Practical Nurse Clinical Coordinator Relationship Specialty Start Date End Date Doris Morrison, VIJAY [address] [place] [address] PCP - General NURSE PRACTITIONER 01/27/15 documented as of this encounter
--- OUTSIDE RECORDS SUMMARY | 2025-03-13 09:30 | XMS_ITS | Encounter Summary ---
Author Organization [facility] Address [address] [place] [address] Care Team Providers Care Corporate Legal Intern Name Role Phone Doris Morrison, Thom LINARES Primary Care Pro vider Encounter Details Date Type Department Care Team (Late st Contact Info) Description 02/07/2020 Lab Requisition [facility] Laboratory Services [address] [place] [phone] Thom Vickers MD [address] [place] [phone] Social History Tobacco Use Types Packs/Day Years Used Date Smoking Tobacco: Never Smokeless Tobacco: Never Alcohol Use Standard Drinks/Week Comments No 0 (1 standard drink = 0.6 oz pur e alcohol) Sex and Gender Information Value Date Recorded Sex Assigned at Not on file 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 Sex Male 4:56 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 Gender Identity Not on file Sexual Orientation Not on file documented as of this encounter Plan of Treatment Not on file documented as of this encounter Procedures Procedure Name Priority Date/Time Associated Diagnosis Comments CBC WITHOUT DIFFERENTIAL Stat 02/07/2020 2:57 AM CDT MAGNESIUM LEVEL Stat 02/07/2020 2:57 AM CDT COMPREHENSIVE METABOLIC PANEL Stat 02/07/2020 2:57 AM CDT documented in this encounter Results * MAGNESIUM LEVEL (02/07/2020 2:57 AM CDT) MAGNESIUM 1.7 1.6 - 2.4 mg/dL 02/07/2020 6:55 AM CDT [facility] Blood Collection / Unknown 02/07/2020 2:57 AM CDT 02/07/2020 5:56 AM CDT us Thom Vickers MD CHEMISTRY ORDERABLES Final Resu lt [facility] [address] [place] [address] * (ABNORMAL) COMPREHENSIVE METABOLIC PANEL (02/07/2020 2:57 AM CDT) SODIUM 135(L) 136 - 145 mmol/L 02/07/2020 6:55 AM CDT [facility] POTASSIUM 4.2 3.5 - 5.1 mmol/L 02/07/2020 6:55 AM CDT [facility] CHLORIDE 104 98 - 107 mmol/L 02/07/2020 6:55 AM CDT [facility] [employer] [facility] CO2 22 22 - 29 mmol/L 02/07/2020 6:55 AM CDT [facility] CALCIUM 8.3(L) 8.8 - 10.2 mg/dL 02/07/2020 6:55 AM CDT [facility] BUN 19 8 - 23 mg/dL 02/07/2020 6:55 AM CDT [facility] CREATININE 0.87 0.67 - 1.17 mg/dL 02/07/2020 6:55 AM CDT [facility] [employer] [facility] Comment:The GFR result is no t clinically significant on patients <18 or >70 years of age. GLUCOSE 104(H) 74 - 99 mg/dL 02/07/2020 6:55 AM CDT [facility] [employer] [facility] TOTAL PROTEIN 4.8(L) 6.4 - 8.3 g/dL 02/07/2020 6:55 AM CDT [facility] [employer] [facility] ALBUMIN 2.0(L) 3.5 - 5.2 g/dL 02/07/2020 6:55 AM CDT [facility] BILIRUBIN TOTAL 0.4 0.2 - 1.0 mg/dL 02/07/2020 6:55 AM CDT [facility] ALKALINE PHOSPHATASE 75 40 - 129 U/L 02/07/2020 6:55 AM CDT [facility] AST 34 10 - 50 U/L 02/07/2020 6:55 AM T [facility] ALT 56(H) <=50 U/L 02/07/2020 6:55 AM CDT [facility] GFR >60 mL/min/1.7 3 sq meter 02/07/2020 6:55 AM CDT [facility] Comment: eGFR has not been validated [...] result. GFR, >60 mL/min/1.7 3 sq meter 02/07/2020 6:55 AM CDT [facility] ANION GAP 9 9 - 20 mmol/L 02/07/2020 6:55 AM T [facility] Blood Collection / Unknown 02/07/2020 2:57 AM CDT 02/07/2020 5:56 AM CDT us Thom Vickers MD CHEMISTRY ORDERABLES Final Resu lt [facility] [address] [place] [address] * (ABNORMAL) CBC WITHOUT DIFFERENTIAL (02/07/2020 2:57 AM CDT) WBC 7.6 4.8 - 10.8 K/uL 02/07/2020 6:10 AM CDT [facility] RBC 3.80(L) 4.60 - 6.20 M/uL 02/07/2020 6:10 AM CDT [facility] HEMOGLOBIN 11.8(L) 14.0 - 18.0 g/dL 02/07/2020 6:10 AM CDT [facility] HEMATOCRIT 35.8(L) 41.0 - 53.0 % 02/07/2020 6:10 AM CDT [facility] MCV 94.2 84.0 - 103.0 fL 02/07/2020 6:10 AM CDT [facility] MCH 31.1 27.0 - 34.0 pg 02/07/2020 6:10 AM CDT [facility] MCHC 33.0 30.0 - 35.0 g/dL 02/07/2020 6:10 AM CDT [facility] PLATELETS 128(L) 140 - 440 K/uL 02/07/2020 6:10 AM CDT [facility] MPV 10.1 8.9 - 12.8 fL 02/07/2020 6:10 AM T [facility] RDW 13.4 11.0 - 14.5 % 02/07/2020 6:10 AM CDT [facility] RDW-STDEV 45.5 37.0 - 54.0 fL 02/07/2020 6:10 AM T [facility] Blood Collection / Unknown 02/07/2020 2:57 AM CDT 02/07/2020 5:56 AM CDT us Thom Vickers MD HEMATOLOGY ORDERABLES Final Res ult [facility] [address] [place] [address] documented in this encounter Visit Diagnoses Not on filedocumented in this encounter Additional Health Concerns Infection Onset Date Last Indicated Resolved Time COVID-19 02/07/2020 02/07/2020 03/08/2020 8:08 PM DIVIDEND DEPOSIT ENTRY CLERK documented as of this encounter Care Teams Corporate Legal Intern Relationship Specialty Start Date End Date Doris Morrison, VIJAY Brandon [address] [place], [place] [address] PCP - General NURSE PRACTITIONER 01/27/15 documented as of this encounter
--- OUTSIDE RECORDS SUMMARY | 2025-03-13 09:31 | XMS_ITS | Encounter Summary ---
Author Organization [facility] Address [address] [place] [address] Care Team Providers Care Ibm Bpm Architect Name Role Phone Doris Morrison, Thom LINARES Primary Care Pro vider Encounter Details Date Type Department Care Team (Late st Contact Info) Description 01/22/2020 Lab Requisition [facility] Laboratory Services [id number] [place] [phone] Thom Vickers MD [address] [place] [phone] Social History Tobacco Use Types Packs/Day Years Used Date Smoking Tobacco: Never Smokeless Tobacco: Never Alcohol Use Standard Drinks/Week Comments No 0 (1 standard drink = 0.6 oz pur e alcohol) Sex and Gender Information Value Date Recorded Sex Assigned at Not on file 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 Male 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 Co de Phone Number [address] [address] * (ABNORMAL) C-REACTIVE PROTEIN (01/22/2020 1:50 AM CDT) CRP 61.4(H) 0.0 - 5.0 mg/L 01/22/2020 6:06 AM CDT [facility] Blood 01/22/2020 1:50 AM CDT 01/22/2020 5:43 AM CDT Thom Vickers MD CHEMISTRY ORDERABLES Final Resu lt Performing Organization Address [facility]/ZIP Co de Phone Number [address] [address] * (ABNORMAL) BRAIN NATRIURETIC PEPTIDE, BNP OR PROBNP (01/22/2020 1:50 AM CDT) PROBNP, N TERMINAL 2,474(H) 0 - 450 pg/mL 01/22/2020 6:06 AM CDT [facility] Blood 01/22/2020 1:50 AM CDT 01/22/2020 5:43 AM CDT us Thom Vickers MD CHEMISTRY ORDERABLES Final Resu lt Performing Organization Address City/State/[facility] Co de Phone Number [facility] [address] [place], [place] [address] documented in this encounter Visit Diagnoses Not on filedocumented in this encounter Additional Health Concerns Infection Onset Date Last Indicated Resolved Time COVID-19 01/16/2020 01/16/2020 02/05/2020 8:09 PM CDT COVID-19 02/07/2020 02/07/2020 03/08/2020 8:08 PM UNDERWRITING MANAGER documented as of this encounter Care Teams Ibm Bpm Architect Relationship Specialty Start Date End Date Doris Morrison, VIJAY [address] [place] [address] PCP - General NURSE PRACTITIONER 01/27/15 documented as of this encounter
--- OUTSIDE RECORDS SUMMARY | 2025-03-13 09:31 | XMS_ITS | Encounter Summary ---
Author Organization [facility] Address [address] [place] [address] Care Team Providers Care Commuter Train Operator Name Role Phone Doris Morrison, Thom LINARES Primary Care Pro vider Encounter Details Date Type Department Care Team (Late st Contact Info) Description 01/27/2020 Lab Requisition [facility] Laboratory Services [address] [place] [phone] Thom Vickers MD [address] [place] [phone] Social History Tobacco Use Types Packs/Day Years Used Date Smoking Tobacco: Never Smokeless Tobacco: Never Alcohol Use Standard Drinks/Week Comments No 0 (1 standard drink = 0.6 oz pur e alcohol) Sex and Gender Information Value Date Recorded Sex Assigned at Not on file Legal Sex Male 4:56 AM PUMP PRESS OPERATOR Gender Identity Not on file Sexual [...] Associated Diagnosis Comments CBC WITHOUT DIFFERENTIAL Stat 01/27/2020 4:35 AM CDT MAGNESIUM LEVEL Stat 01/27/2020 4:35 AM CDT COMPREHENSIVE METABOLIC PANEL Stat 01/27/2020 4:35 AM CDT documented in this encounter Results * MAGNESIUM LEVEL (01/27/2020 4:35 AM CDT) MAGNESIUM 2.2 1.6 - 2.4 mg/dL 01/27/2020 6:31 AM CDT [facility] Blood Collection / Unknown 01/27/2020 4:35 AM CDT 01/27/2020 5:46 AM CDT Thom Vickers MD CHEMISTRY ORDERABLES Final Resu lt [facility] [address] [place] [address] * (ABNORMAL) COMPREHENSIVE METABOLIC PANEL (01/27/2020 4:35 AM CDT) Pathologist [facility] SODIUM 128(L) 136 - 145 mmol/L 01/27/2020 6:31 AM CDT [facility] [employer] [facility] POTASSIUM 4.0 3.5 - 5.1 mmol/L 01/27/2020 6:31 AM CDT [facility] Ludi [facility] CHLORIDE 96(L) 98 - 107 mmol/L 01/27/2020 6:31 AM CDT [facility] CO2 22 22 - 29 mmol/L 01/27/2020 6:31 AM CDT [facility] CALCIUM 8.0(L) 8.8 - 10.2 mg/dL 01/27/2020 6:31 AM CDT [facility] Ludi [facility] BUN 46(H) 8 - 23 mg/dL 01/27/2020 6:31 AM CDT [facility] Ludi [facility] CREATININE 0.98 0.67 - 1.17 mg/dL 01/27/2020 6:31 AM CDT [facility] Comment:The GFR result is no t clinically significant on patients <18 or >70 years of age. GLUCOSE 95 74 - 99 mg/dL 01/27/2020 6:31 AM [facility] TOTAL PROTEIN 5.4(L) 6.4 - 8.3 g/dL 01/27/2020 6:31 AM [facility] ALBUMIN 2.5(L) 3.5 - 5.2 g/dL 01/27/2020 6:31 AM [facility] BILIRUBIN TOTAL 1.0 0.2 - 1.0 mg/dL 01/27/2020 6:31 AM [facility] ALKALINE PHOSPHATASE 75 40 - 129 U/L 01/27/2020 6:31 AM [facility] AST 32 10 - 50 U/L 01/27/2020 6:31 AM [facility] ALT 60(H) <=50 U/L 01/27/2020 6:31 AM [facility] GFR >60 mL/min/1.7 3 sq meter 01/27/2020 6:31 AM [facility] Comment: eGFR has not been validated [...] result. GFR, >60 mL/min/1.7 3 sq meter 01/27/2020 6:31 AM T [facility] ANION GAP 10 9 - 20 mmol/L 01/27/2020 6:31 AM [facility] Blood Collection / Unknown 01/27/2020 4:35 AM CDT 01/27/2020 5:46 AM CDT us Thom Vickers MD CHEMISTRY ORDERABLES Final Resu lt [facility] [address], [place] [id number] * (ABNORMAL) CBC WITHOUT DIFFERENTIAL (01/27/2020 4:35 AM CDT) WBC 13.7(H) 4.8 - 10.8 K/uL 01/27/2020 6:02 AM CDT [facility] RBC 5.13 4.60 - 6.20 M/uL 01/27/2020 6:02 AM CDT [facility] HEMOGLOBIN 15.8 14.0 - 18.0 g/dL 01/27/2020 6:02 AM CDT [facility] HEMATOCRIT 47.1 41.0 - 53.0 % 01/27/2020 6:02 AM CDT [facility] MCV 91.8 84.0 - 103.0 fL 01/27/2020 6:02 AM CDT [facility] MCH 30.8 27.0 - 34.0 pg 01/27/2020 6:02 AM CDT [facility] MCHC 33.5 30.0 - 35.0 g/dL 01/27/2020 6:02 AM CDT [facility] PLATELETS 333 140 - 440 K/uL 01/27/2020 6:02 AM CDT [facility] MPV 9.7 8.9 - 12.8 fL 01/27/2020 6:02 AM CDT [facility] RDW 12.4 11.0 - 14.5 % 01/27/2020 6:02 AM T [facility] RDW-STDEV 41.8 37.0 - 54.0 fL 01/27/2020 6:02 AM T [facility] Blood Collection / Unknown 01/27/2020 4:35 AM CDT 01/27/2020 5:46 AM CDT Thom Vickers MD HEMATOLOGY ORDERABLES Final Res ult [facility] [address] [place] [address] documented in this encounter Visit Diagnoses Not on filedocumented in this encounter Additional Health Concerns Infection Onset Date Last Indicated Resolved Time COVID-19 01/16/2020 01/16/2020 02/05/2020 8:09 PM CDT COVID-19 02/07/2020 02/07/2020 03/08/2020 8:08 PM PUMP PRESS OPERATOR documented as of this encounter Care Teams Commuter Train Operator Relationship Specialty Start Date End Date Doris Morrison, VIJAY [address] [place] [address] PCP - General NURSE PRACTITIONER 01/27/15 documented as of this encounter
--- OUTSIDE RECORDS SUMMARY | 2025-03-13 09:31 | XMS_ITS | Encounter Summary ---
Author Organization [facility] Address [address] [place] [address] Care Team Providers Care Brass Roller Name Role Phone Doris Morrison, Thom LINARES Primary Care Pro vider Encounter Details Date Type Department Care Team (Late st Contact Info) Description 01/28/2020 Lab Requisition [facility] Laboratory Services [id number] [place] [phone] Thom Vickers MD [address] [place] [phone] Social History Tobacco Use Types Packs/Day Years Used Date Smoking Tobacco: Never Smokeless Tobacco: Never Alcohol Use Standard Drinks/Week Comments No 0 (1 standard drink = 0.6 oz pur e alcohol) Sex and Gender Information Value Date Recorded Sex Assigned at Not on file Legal Sex Male 4:56 AM ASSOCIATE PROFESSOR OF COMMUNICATION Gender Identity Not on file Sexual Orientation [...] Associated Diagnosis Comments BASIC METABOLIC PANEL Stat 01/28/2020 4:18 AM CDT documented in this encounter Results * (ABNORMAL) BASIC METABOLIC PANEL (01/28/2020 4:18 AM [facility]) SODIUM 126(L) 136 - 145 mmol/L 01/28/2020 6:05 AM [facility] POTASSIUM 4.2 3.5 - 5.1 mmol/L 01/28/2020 6:05 AM [facility] CHLORIDE 96(L) 98 - 107 mmol/L 01/28/2020 6:05 AM [facility] CO2 21(L) 22 - 29 mmol/L 01/28/2020 6:05 AM [facility] CALCIUM 7.9(L) 8.8 - 10.2 mg/dL 01/28/2020 6:05 AM [facility] BUN 38(H) 8 - 23 mg/dL 01/28/2020 6:05 AM [facility] CREATININE 0.89 0.67 - 1.17 mg/dL 01/28/2020 6:05 AM [facility] Comment:The GFR result is no t clinically significant on patients <18 or >70 years of age. GLUCOSE 96 74 - 99 mg/dL 01/28/2020 6:05 AM [facility] GFR >60 mL/min/1.7 3 sq meter 01/28/2020 6:05 AM [facility] Comment: eGFR has not been validated [...] result. GFR, >60 mL/min/1.7 3 sq meter 01/28/2020 6:05 AM [facility] ANION GAP 9 9 - 20 mmol/L 01/28/2020 6:05 AM [facility] Blood Collection / Unknown 01/28/2020 4:18 AM CDT 01/28/2020 5:46 AM CDT us Thom Vickers MD CHEMISTRY ORDERABLES Final Resu lt Performing Organization Address City/State/[facility] Co de Phone Number [facility] [address] [address] documented in this encounter Visit Diagnoses Not on filedocumented in this encounter Additional Health Concerns Infection Onset Date Last Indicated Resolved Time COVID-19 01/16/2020 01/16/2020 02/05/2020 8:09 PM CDT COVID-19 02/07/2020 02/07/2020 03/08/2020 8:08 PM ASSOCIATE PROFESSOR OF COMMUNICATION documented as of this encounter Care Teams Brass Roller Relationship Specialty Start Date End Date Doris Morrison, VIJAY [address] [place] [address] PCP - General NURSE PRACTITIONER 01/27/15 documented as of this encounter
--- OUTSIDE RECORDS SUMMARY | 2025-03-13 09:31 | XMS_ITS | Encounter Summary ---
Author Organization [facility] Address [address] [place] [address] Care Team Providers Care Rn Night Name Role Phone VIJAY George Sr., Michael Dave Primary Care Pro vider Encounter Details Date Type Department Care Team (Latest Contact Info) Description 04/15/2003 Outpatient [facility] Family Medicine- [address] [place] [address] Debi Chandra MD NO ADDRESS ON FILE ACUTE BRONCHITIS (Primary Dx) Social History Tobacco Use Types Packs/Day Years Used Date Smoking Tobacco: Never Assessed Sex and Gender Information Value Date Recorded Sex Assigned at Not on file Legal Sex Male 4:56 AM RAYON WINDER Gender Identity Not on file Sexual Orientation Not on file documented as of this encounter Plan of Treatment Not on file documented as of this encounter Visit Diagnoses Diagnosis Acute bronchitis- Primary documented in this encounter Additional Health Concerns Infection Onset Date Last Indicated Resolved Time COVID-19 01/16/2020 01/16/2020 02/05/2020 8:09 PM CDT COVID-19 02/07/2020 02/07/2020 03/08/2020 8:08 PM RAYON WINDER documented as of this encounter Care Teams Rn Night Relationship Specialty Start Date End Date Thom George Sr., FNP [address] [place] [address] PCP - General NURSE PRACTITIONER 01/27/15 documented as of this encounter
--- OUTSIDE RECORDS SUMMARY | 2025-03-13 09:31 | XMS_ITS | Clinical Summary ---
Author Organization [facility] Address [address] [facility] [address] [place] [address] Phone Care Team Providers Care Product Safety Head Name Role Phone Doris Morrison, VIJAY, Thom Bhatt Primary Care Pro vider Allergies No known active allergies Medications clopidogrel (PLAVIX) 75 mg Tablet Take 75 mg by mouth daily. Active atorvastatin (LIPITOR) 80 mg tablet Take 80 mg by mouth Daily LATE. Active tamsulosin (FLOMAX) 0.4 mg capsule Take 0.4 mg by mouth daily. Active latanoprost (XALATAN) 0.005 % solution INSTILL 1 DROP INTO EACH EYE BEFORE BED. 4 9 Active finasteride (PROSCAR) 5 mg tablet TAKE 1 TABLET BY MOUTH ONCE DAILY 3 9 Active therapeutic multivitamin (THERA TAB) Tablet Take 1 Tablet by mouth. 0 Active aspirin (ECOTRIN EC) 325 mg Tablet, Delayed Release (E.C.) Take 325 mg by mouth. 0 Active diltiaZEM (TIAZAC) 240 mg Extended Release capsule Take 240 mg by mouth. 0 Active lisinopriL (PRINIVIL) 10 mg tablet Take 10 mg by mouth. 0 Active amiodarone (CORDARONE) 200 mg tablet Take 200 mg by mouth. 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 01/16/2020 Paroxysmal atrial fibrillati on with rapid ventricular response 01/16/2020 Vitreoretinal degeneration of both eyes 06/28/19 20 Ocular hypertension, bilateral 06/28/2019 Exudative age-related macula r degeneration of left eye with active choroidal neovascularization 02/09/2019 Nonexudative age-related mac ular degeneration, right eye, advanced atrophic without subfoveal involvement 02/09/2019 Immunizations Immunization Administration Dates Next Due Influenza Seasonal Unspecified Formulation IM Pneumococcal conjugate, unspecified formulation 03/06/2015 Family History Medical History Relation Name Comments Cancer Maternal Grandmother Amblyopia Neg Hx Blindness Neg Hx Cataract Neg Hx Corneal Dystrophies Neg Hx Detachment/Tears Neg Hx Diabetes Neg Hx Fuchs' dystrophy Neg Hx Hypertension Neg Hx [place]at[place]us Neg Hx Strabismus Neg Hx Stroke Neg Hx Thyroid Disease Neg Hx Relation Name Status Comments Maternal Grandmother Social History Tobacco Use Types Packs/Day Years Used Date Smoking Tobacco: Never Smokeless Tobacco: Never Alcohol Use Standard Drinks/Week Comments No 0 (1 standard drink = 0.6 oz pur e alcohol) Sex and Gender Information Value Date Recorded Sex Assigned at Not on file Legal Sex Male 4:56 AM BUSINESS DIRECTOR Gender Identity Not on file Sexual Orientation Not on file Last Filed Vital Signs Vital Sign Reading Time Taken Comments Blood Pressure 124/74 01/20/2020 3:33 PM CDT Pulse 88 01/20/2020 3:33 PM CDT Temperature 35.4 C (95.8 F) 01/20/2020 3:33 PM CDT Respiratory Rate 19 01/20/2020 6:38 AM CDT Oxygen Saturation 94% 01/20/2020 3:33 PM CDT Inhaled Oxygen Concentration - - Weight 83.5 kg (184 lb) 05/18/2020 11:08 AM BUSINESS DIRECTOR Height 185.4 cm (6' 1 ) 05/18/2020 11:08 AM BUSINESS DIRECTOR Body Mass Index 24.28 05/18/2020 11:08 AM BUSINESS DIRECTOR Plan of Treatment Health Maintenance Due Date Last Done Comments DTAP/TDAP/TD VACCINES (1 - Tdap) 02/03/1959 PNEUMOCOCCAL VACCINE 50+ YEARS (1 of 1 - PCV) 02/03/19 90 03/06/2015 ZOSTER VACCINE (1 of 2) 02/03/1990 RSV VACCINE (60+ or ) (1 - 1-dose 75+ series) 02/03/2015 INFLUENZA VACCINE (#1) 2024 03/06/2015 Insurance MEDICARE PART A AND B [facility] [place] [address] [place] [id number] MEDICARE PART A AND B [employer] Advance Directives For more information, please contact: [phone] * Full Code (Latest Code Status on File) Date Activated Date Inactivated Comments 01/15/2020 11:14 PM 01/20/2020 9:09 PM Care Teams Product Safety Head Relationship Specialty Start Date End Date Thom George Sr., FNP [address] [place] [address] PCP - General NURSE PRACTITIONER 01/27/15
--- OUTSIDE RECORDS SUMMARY | 2025-03-13 09:31 | XMS_ITS | Encounter Summary ---
Author Organization [facility] Address [address] [place] [address] Care Team Providers Care Bottling Line Operator Name Role Phone Doris Morrison, Thom LINARES Primary Care Pro vider Encounter Details Date Type Department Care Team (Late st Contact Info) Description 01/21/[address] [facility] Laboratory Services [id number] [place] [phone] Thom Vickers MD [address] [place] [phone] Social History Tobacco Use Types Packs/Day Years Used Date Smoking Tobacco: Never Smokeless Tobacco: Never Alcohol Use Standard Drinks/Week Comments No 0 (1 standard drink = 0.6 oz pur e alcohol) Sex and Gender Information Value Date Recorded Sex Assigned at Not on file Legal Sex Male 4:56 AM FIXED ROUTE OPERATOR Gender Identity Not on file Sexual [...] Procedure Name Priority Date/Time Associated Diagnosis Comments DIFFERENTIAL, MANUAL Routine 01/21/2020 3:00 AM CDT CBC WITH DIFFERENTIAL Stat 01/21/2020 3:00 AM CDT PHOSPHORUS Stat 01/21/2020 3:00 AM CDT MAGNESIUM LEVEL Stat 01/21/2020 3:00 AM CDT COMPREHENSIVE METABOLIC PANEL Stat 01/21/2020 3:00 AM CDT documented in this encounter Results * (ABNORMAL) MANUAL DIFFERENTIAL (01/21/2020 3:00 AM CDT) [facility] SEGMENTED NEUTROPHILS 80(H) 36 - 66 % 01/21/2020 6:13 AM CDT [facility] BANDS RELATIVE 1 0 - 6 % 01/21/2020 6:13 AM CDT [facility] LYMPHOCYTES RELATIVE 9(L) 24 - 44 % 01/21/2020 6:13 AM CDT [facility] MONOCYTES RELATIVE 10 4 - 10 % 01/21/2020 6:13 AM CDT [facility] NEUTROPHILS ABSOLUTE COUNT 12.96(H) 2.00 - 8.00 K/uL 01/21/2020 6:13 AM CDT [facility] LYMPHOCYTES ABSOLUTE 1.44 1.20 - 4.00 K/uL 01/21/2020 6:13 AM CDT [facility] MONOCYTES ABSOLUTE 1.60(H) 0.10 - 0.60 K/uL 01/21/2020 6:13 AM CDT [facility] TOTAL CELLS COUNTED IN DIFF 100 01/21/2020 6:13 AM CDT [facility] PLATELET EST. Adequate 01/21/2020 6:13 AM CDT [facility] RBC MORPHOLOGY Normal 01/21/2020 6:13 AM T [facility] Blood Collection / Unknown 01/21/2020 3:00 AM CDT 01/21/2020 5:44 AM CDT us Thom Vickers MD HEMATOLOGY ORDERABLES COM Final Result [facility] [address] [place] [address] * PHOSPHORUS (01/21/2020 3:00 AM CDT) PHOSPHORUS 3.9 2.5 - 4.5 mg/dL 01/21/2020 7:05 AM CDT [facility] Blood Collection / Unknown 01/21/2020 3:00 AM CDT 01/21/2020 5:44 AM CDT Thom Vickers MD CHEMISTRY ORDERABLES Final Resu lt Performing Organization Address [facility]/ZIP Co de Phone Number [facility] [address] [place] [phone] * MAGNESIUM LEVEL (01/21/2020 3:00 AM CDT) Pathologist [facility] MAGNESIUM 2.2 1.6 - 2.4 mg/dL 01/21/2020 7:05 AM CDT [facility] Blood Collection / Unknown 01/21/2020 3:00 AM CDT 01/21/2020 5:44 AM CDT Thom Vickers MD CHEMISTRY ORDERABLES Final Resu lt Performing Organization Address City/[facility]/ZIP Co de Phone Number [facility] [address] [place] [address] * (ABNORMAL) COMPREHENSIVE METABOLIC PANEL (01/21/2020 3:00 AM CDT) SODIUM 138 136 - 145 mmol/L 01/21/2020 7:05 AM CDT [facility] POTASSIUM 4.8 3.5 - 5.1 mmol/L 01/21/2020 7:05 AM CDT [facility] DxTerity [facility] CHLORIDE 102 98 - 107 mmol/L 01/21/2020 7:05 AM CDT [facility] CO2 24 22 - 29 mmol/L 01/21/2020 7:05 AM CDT [facility] CALCIUM 9.1 8.8 - 10.2 mg/dL 01/21/2020 7:05 AM [facility] BUN 49(H) 8 - 23 mg/dL 01/21/2020 7:05 AM [facility] CREATININE 1.10 0.67 - 1.17 mg/dL 01/21/2020 7:05 AM [facility] Comment:The GFR result is no t clinically significant on patients <18 or >70 years of age. GLUCOSE 127(H) 74 - 99 mg/dL 01/21/2020 7:05 AM [facility] TOTAL PROTEIN 6.3(L) 6.4 - 8.3 g/dL 01/21/2020 7:05 AM [facility] ALBUMIN 2.6(L) 3.5 - 5.2 g/dL 01/21/2020 7:05 AM [facility] BILIRUBIN TOTAL 0.9 0.2 - 1.0 mg/dL 01/21/2020 7:05 AM [facility] ALKALINE PHOSPHATASE 75 40 - 129 U/L 01/21/2020 7:05 AM [facility] AST 48 10 - 50 U/L 01/21/2020 7:05 AM [facility] ALT 68(H) <=50 U/L 01/21/2020 7:05 AM [facility] GFR >60 mL/min/1.7 3 sq meter 01/21/2020 7:05 AM [facility] Comment: eGFR has not been validated [...] result. GFR, >60 mL/min/1.7 3 sq meter 01/21/2020 7:05 AM [facility] ANION GAP 12 9 - 20 mmol/L 01/21/2020 7:05 AM CDT [facility] [employer] [facility] Blood Collection / Unknown 01/21/2020 3:00 AM CDT 01/21/2020 5:44 AM CDT us Thom Vickers MD CHEMISTRY ORDERABLES Final Resu lt [facility] [address] [place] [address] * (ABNORMAL) CBC WITH DIFFERENTIAL (01/21/2020 3:00 AM CDT) WBC 16.0(H) 4.8 - 10.8 K/uL 01/21/2020 6:13 AM CDT [facility] RBC 5.13 4.60 - 6.20 M/uL 01/21/2020 6:13 AM CDT [facility] HEMOGLOBIN 15.6 14.0 - 18.0 g/dL 01/21/2020 6:13 AM CDT [facility] HEMATOCRIT 48.1 41.0 - 53.0 % 01/21/2020 6:13 AM CDT [facility] MCV 93.8 84.0 - 103.0 fL 01/21/2020 6:13 AM CDT [facility] MCH 30.4 27.0 - 34.0 pg 01/21/2020 6:13 AM CDT [facility] MCHC 32.4 30.0 - 35.0 g/dL 01/21/2020 6:13 AM CDT [facility] RDW 12.7 11.0 - 14.5 % 01/21/2020 6:13 AM CDT [facility] [employer] [facility] RDW-STDEV 43.6 37.0 - 54.0 fL 01/21/2020 6:13 AM CDT [facility] PLATELETS 360 140 - 440 K/uL 01/21/2020 6:13 AM CDT [facility] [employer] [facility] MPV 10.1 8.9 - 12.8 fL 01/21/2020 6:13 AM CDT [facility] LABORATORY [facility] Blood Collection / Unknown 01/21/2020 3:00 AM CDT 01/21/2020 5:44 AM CDT us Thom Vickers MD HEMATOLOGY ORDERABLES Final Res ult [facility] [address] [place] [address] documented in this encounter Visit Diagnoses Not on filedocumented in this encounter Additional Health Concerns Infection Onset Date Last Indicated Resolved Time COVID-19 01/16/2020 01/16/2020 02/05/2020 8:09 PM CDT COVID-19 02/07/2020 02/07/2020 03/08/2020 8:08 PM FIXED ROUTE OPERATOR documented as of this encounter Care Teams Bottling Line Operator Relationship Specialty Start Date End Date Doris Morrison, VIJAY Brandon [address] [place] [address] PCP - General NURSE PRACTITIONER 01/27/15 documented as of this encounter
--- OUTSIDE RECORDS SUMMARY | 2025-03-13 09:31 | XMS_ITS | Encounter Summary ---
Author Organization [facility] Address [address] [place] [address] Care Team Providers Care Diagnostic Assistant Name Role Phone Doris Morrison, Thom LINARSE Primary Care Pro vider Encounter Details Date Type Department Care Team (Late st Contact Info) Description 01/24/2020 Lab Requisition [facility] Laboratory Services [id number] [place] [phone] Thom Vickers MD [address] [place] [phone] Social History Tobacco Use Types Packs/Day Years Used Date Smoking Tobacco: Never Smokeless Tobacco: Never Alcohol Use Standard Drinks/Week Comments No 0 (1 standard drink = 0.6 oz pur e alcohol) Sex and Gender Information Value Date Recorded Sex Assigned at Not on file Legal Sex Male 4:56 AM CHAPERON Gender Identity Not on file Sexual Orientation [...] Procedure Name Priority Date/Time Associated Diagnosis Comments D-DIMER Stat 01/24/2020 2:51 AM CDT CBC WITHOUT DIFFERENTIAL Stat 01/24/2020 2:51 AM CDT BRAIN NATRIURETIC PEPTIDE, BNP OR PROBNP Stat 01/24/2020 2:51 AM CDT MAGNESIUM LEVEL Stat 01/24/2020 2:51 AM CDT COMPREHENSIVE METABOLIC PANEL Stat 01/24/2020 2:51 AM CDT documented in this encounter Results * (ABNORMAL) D-DIMER (01/24/2020 2:51 AM CDT) D-DIMER QUANT 0.94(H) 0.00 - 0.50 ug/mL FEU 01/24/2020 6:28 AM CDT [facility] First Aid Shot Therapy [facility] Blood Collection / Unknown 01/24/2020 2:51 AM CDT 01/24/2020 6:04 AM CDT Narrative [facility] First Aid Shot Therapy [facility] - 01/24/2020 6:28 AM CDT Various clinical studies utilizing this method have shown that a result of < 0.5 ug/ml FEU excludes deep vein thrombosis and pulmonary embolism with high sensitivity when used in conjunction with a non-high clinical pre-test probability assessment. Thom Vickers MD HEMATOLOGY ORDERABLES Final Res ult Performing Organization Address [facility]/ZIP Co de Phone Number [address] [address] * (ABNORMAL) BRAIN NATRIURETIC PEPTIDE, BNP OR PROBNP (01/24/2020 2:51 AM CDT) PROBNP, N TERMINAL 1,709(H) 0 - 450 pg/mL 01/24/2020 6:40 AM CDT [facility] Blood Collection / Unknown 01/24/2020 2:51 AM CDT 01/24/2020 6:04 AM CDT Thom Vickers MD CHEMISTRY ORDERABLES Final Resu lt [facility] [address] [place] [address] * MAGNESIUM LEVEL (01/24/2020 2:51 AM CDT) [facility] MAGNESIUM 2.0 1.6 - 2.4 mg/dL 01/24/2020 6:40 AM CDT [facility] Blood Collection / Unknown 01/24/2020 2:51 AM CDT 01/24/2020 6:04 AM CDT us Thom Vickers MD CHEMISTRY ORDERABLES Final Resu lt [facility] [address] [place] [address] * (ABNORMAL) COMPREHENSIVE METABOLIC PANEL (01/24/2020 2:51 AM CDT) [facility] SODIUM 132(L) 136 - 145 mmol/L 01/24/2020 6:40 AM CDT [facility] POTASSIUM 4.6 3.5 - 5.1 mmol/L 01/24/2020 6:40 AM T [facility] CHLORIDE 99 98 - 107 mmol/L 01/24/2020 6:40 AM T [facility] CO2 22 22 - 29 mmol/L 01/24/2020 6:40 AM T [facility] CALCIUM 8.7(L) 8.8 - 10.2 mg/dL 01/24/2020 6:40 AM T [facility] BUN 43(H) 8 - 23 mg/dL 01/24/2020 6:40 AM T [facility] CREATININE 0.84 0.67 - 1.17 mg/dL 01/24/2020 6:40 AM T [facility] Comment:The GFR result is no t clinically significant on patients <18 or >70 years of age. GLUCOSE 107(H) 74 - 99 mg/dL 01/24/2020 6:40 AM T [facility] TOTAL PROTEIN 5.3(L) 6.4 - 8.3 g/dL 01/24/2020 6:40 AM CDT [facility] ALBUMIN 2.4(L) 3.5 - 5.2 g/dL 01/24/2020 6:40 AM CDT [facility] BILIRUBIN TOTAL 0.8 0.2 - 1.0 mg/dL 01/24/2020 6:40 AM CDT [facility] ALKALINE PHOSPHATASE 64 40 - 129 U/L 01/24/2020 6:40 AM CDT [facility] AST 45 10 - 50 U/L 01/24/2020 6:40 AM T [facility] ALT 72(H) <=50 U/L 01/24/2020 6:40 AM CDT [facility] GFR >60 mL/min/1.7 3 sq meter 01/24/2020 6:40 AM CDT [facility] Comment: eGFR has not been validated for [...] result. GFR, >60 mL/min/1.7 3 sq meter 01/24/2020 6:40 AM CDT [facility] ANION GAP 11 9 - 20 mmol/L 01/24/2020 6:40 AM T [facility] Blood Collection / Unknown 01/24/2020 2:51 AM CDT 01/24/2020 6:04 AM CDT us Thom Vickers MD CHEMISTRY ORDERABLES Final Resu lt [facility] [address] [place] [address] * (ABNORMAL) CBC WITHOUT DIFFERENTIAL (01/24/2020 2:51 AM CDT) Pathologist [facility] WBC 16.9(H) 4.8 - 10.8 K/uL 01/24/2020 6:21 AM CDT [facility] RBC 4.77 4.60 - 6.20 M/uL 01/24/2020 6:21 AM CDT [facility] HEMOGLOBIN 14.4 14.0 - 18.0 g/dL 01/24/2020 6:21 AM CDT [facility] HEMATOCRIT 43.3 41.0 - 53.0 % 01/24/2020 6:21 AM CDT [facility] MCV 90.8 84.0 - 103.0 fL 01/24/2020 6:21 AM CDT [facility] MCH 30.2 27.0 - 34.0 pg 01/24/2020 6:21 AM CDT [facility] MCHC 33.3 30.0 - 35.0 g/dL 01/24/2020 6:21 AM CDT [facility] PLATELETS 376 140 - 440 K/uL 01/24/2020 6:21 AM CDT [facility] MPV 9.7 8.9 - 12.8 fL 01/24/2020 6:21 AM CDT [facility] RDW 12.6 11.0 - 14.5 % 01/24/2020 6:21 AM T [facility] RDW-STDEV 41.2 37.0 - 54.0 fL 01/24/2020 6:21 AM T [facility] Blood Collection / Unknown 01/24/2020 2:51 AM CDT 01/24/2020 6:04 AM CDT us Thom Vickers MD HEMATOLOGY ORDERABLES Final Res ult [facility] [address] [place] [address] documented in this encounter Visit Diagnoses Not on filedocumented in this encounter Additional Health Concerns Infection Onset Date Last Indicated Resolved Time COVID-19 01/16/2020 01/16/2020 02/05/2020 8:09 PM CDT COVID-19 02/07/2020 02/07/2020 03/08/2020 8:08 PM CHAPERON documented as of this encounter Care Teams Diagnostic Assistant Relationship Specialty Start Date End Date Doris Morrison, VIJAY Brandon [address] [place] [address] PCP - General NURSE PRACTITIONER 01/27/15 documented as of this encounter
--- NOTE | 2025-03-13 09:32 | XRR_ITS ---
PROCEDURE INFORMATION: Exam: XR Chest Exam date and time: 03/13/2025 10:09 AM Age: 85 years old Clinical indication: Other: Hypertension TECHNIQUE: Imaging protocol: Radiologic exam of the chest. Views: 1 view. COMPARISON: CR XR chest 1V portable [id number] 07/25/2020 1:46 PM FINDINGS: Lungs: Unremarkable. No consolidation. Pleural spaces: Unremarkable. No pleural effusion. No pneumothorax. Heart/Mediastinum: Unremarkable. No cardiomegaly. Vasculature: Atherosclerotic aortic calcifications. 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 XR/XR chest 1V portable [id number] IMPRESSION: No acute cardiopulmonary findings.
--- NOTE | 2025-03-13 09:32 | ECG_ITS ---
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 Measurements Intervals [place] Rate: 49 P: 49 [place]: 212 QRS: 114 QRSD: 154 T: 13 QT: 532 QTc: 485 Interpretive Statements SINUS BRADYCARDIA WITH FIRST DEGREE AV BLOCK WITH OCCASIONAL VENTRICULAR PREMATURE COMPLEXES RIGHT AXIS DEVIATION [QRS AXIS > 100] RIGHT BUNDLE BRANCH BLOCK [120+ ms QRS DURATION, UPRIGHT V1, 40+ ms S IN I/aVL/V4/V5/V6] Compared to ECG 01/15/2020 19:34:02 First degree AV block now present Atrial fibrillation no longer present Aberrant conduction of supraventricular beat(s) no longer present T-wave abnormality no longer present Possible ischemia no longer present Electronically Signed On 03-13-2025 17:18:31 [employer] by Zoraida Enrique M.D. [email or web address]
--- NOTE | 2025-03-13 09:40 | W.ED.GENADLT ---
HPI - General Adult General: Chief complaint: General Medical Stated complaint: high bp Time Seen by Provider: 03/13/25 09:29 History of Present Illness: 85-year-old man with a history of medical noncompliance, hypertension, sleep apnea (did not tolerate CPAP), congestive heart failure, coronary artery disease status post stents 10 years and 20 years ago, hyperlipidemia and BPH who presents to the emergency room with hypertension. He says he been asymptomatic but he has been checking it because it has been up lately. He was started on sotalol a couple days ago. 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 No chest pain. No headache. No altered mental status. No lower extremity swelling. No focal motor deficits. No fevers. He does say he has had some congestion. Related Data Home Medications ?Medication ?Instructions ?Recorded ?Confirmed timolol maleate 0.5 % eye drops See Rx Instructions .Route .COMPLEX 07/25/20 03/08/25 dorzolamide 22.3 mg-timolol 6.8 ophthalmic (eye) 10/09/24 03/08/25 mg/mL eye drops tadalafil 5 mg tablet mg PO 10/09/24 03/08/25 latanoprost 0.005 % eye drops 1 drp ophthalmic (eye) BEDTIME 03/13/25 03/13/25 multivitamin with minerals 1 tab PO DAILY 03/13/25 03/13/25 zoynpvqj-yaqurdcca-dtmkoqxg 3.5 See Rx Instructions .Route .COMPLEX 03/13/25 03/13/25 mg/mL-10,000 unit/mL-0.1% eye drops tadalafil 20 mg tablet 20 mg PO PRN 03/13/25 03/13/25 tadalafil 5 mg tablet 5 mg PO DAILY 03/13/25 03/13/25 Previous Rx's ?Medication ?Instructions ?Recorded finasteride 5 mg tablet See Rx Instructions .Route 03/30/24 .COMPLEX #90 tabs tamsulosin 0.4 mg capsule See Rx Instructions .Route 05/27/24 .COMPLEX #180 caps sotalol 80 mg tablet 80 mg PO BID #60 tabs 03/08/25 Allergies Allergy/AdvReac Type Severity Reaction Status Date / Time No Known Allergies Allergy Verified 03/13/25 09:35 Review of Systems Narrative: Constitutional symptoms: Negative except as documented in HPI. Skin symptoms: Negative except as documented in HPI. Eye symptoms: Negative except as documented in HPI. ENMT symptoms: Negative except as documented in HPI. Respiratory symptoms: Negative except as documented in HPI. Cardiovascular symptoms: Negative except as documented in HPI. Gastrointestinal symptoms: Negative except as documented in HPI. Genitourinary symptoms: Negative except as documented in HPI. Musculoskeletal symptoms: Negative except as documented in HPI. Neurologic symptoms: Negative except as documented in HPI. Psychiatric symptoms: Negative except as documented in HPI. Endocrine symptoms: Negative except as documented in HPI. PFSH ED PFSH: Medical History (Updated 03/13/25 @ 12:29 by Dana Henry MD) BPH w urinary obs/LUTS Atrial fibrillation Seems to come and go mostly in the middle of the night per patient. CHF (congestive heart failure), NYHA class III Coronary artery disease Hyperlipidemia Obstructive sleep apnea BPH (benign prostatic hyperplasia) Essential hypertension Surgical History History of cataract surgery Bilateral Hx of tonsillectomy Hx of heart artery stent x 3 -- last around 2014 Family History Mother , at age 65 Heart disease Father , in WW 2 No problems noted. Social History Smoking and tobacco/nicotine status: never used tobacco/nicotine Alcohol intake: current Alcohol type: wine Substance/Drug Use: never Adopted: No Caregiver/support person: No Lives independently: Yes Marital status: / Current occupational status: retired Sexually active: No Do you think of yourself as: Straight/Heterosexual Current gender identity: Male Physical Exam Narrative: EXAM NARRATIVE: General: Alert, no acute distress. Skin: Warm, dry. Head: Normocephalic, atraumatic. Neck: Supple, trachea midline. Eye: Extraocular movements are intact. Ears, nose, mouth and throat: mucosa moist. Cardiovascular: Regular, Normal peripheral perfusion. Respiratory: Lungs are clear to auscultation, respirations are non-labored, breath sounds are equal, Symmetrical chest wall expansion. Gastrointestinal: Soft, Nontender, Non distended Musculoskeletal: Normal ROM, no deformity. Neurological: Alert and oriented, No focal neurological deficit observed. Psychiatric: Cooperative, appropriate mood & affect. Course Vital Signs: Vital signs: Vital Signs Temperature 98 F 03/13/25 09:31 Pulse Rate 40 L 03/13/25 12:34 Respiratory Rate 17 03/13/25 10:35 Blood Pressure 149/61 03/13/25 12:34 Pulse Oximetry 94 03/13/25 12:34 Oxygen Delivery Me thod Room Air 03/13/25 10:35 MDM - General Adult Medical Decision Making Medical decision making Patient's reason for coming to the emergency room: Hypertension Social determinants: Patient is retired. Family is present. I reviewed the patient's medical record. 85-year-old man with a history of medical noncompliance, hypertension, sleep apnea (did not tolerate CPAP), congestive heart failure, coronary artery disease status post stents 10 years and 20 years ago, hyperlipidemia and BPH I reviewed the patient's current home meds Patient was recently started on sotalol. Alternate historians: Cxklcvbq-gp-nav and son give history as well. Differential diagnosis including but not limited to and based on the above HPI, review of systems and physical exam: Patient presents with hypertension: Essential hypertension. Stroke. acute coronary syndrome. kidney failure. congestive heart failure. anxiety. Orders placed to evaluate differential diagnosis based on the above differential, HPI and physical exam EKG: Time 10:04 AM. Rate 49. Sinus bradycardia, No ST-T changes, PVCs, right bundle branch block, This was reviewed and interpreted by myself the ER physician at 10:08 AM Repeat EKG: Time 1141. Rate 39. Sinus bradycardia with first-degree AV block. Right bundle branch block. No ST-T changes, This was reviewed and interpreted by myself the ER physician at 1141. No significant changes from previous EKG other than heart rate has dropped some. Chest x-ray: No acute process. No infiltrate. No pneumothorax. This was reviewed and interpreted by myself the emergency room physician. I also reviewed the radiology report. Lab Review: Laboratory results were reviewed and interpreted by myself the emergency room physician. No leukocytosis. No anemia. No renal failure. Serial cardiac markers are mildly elevated at 15 but unchanged. proBNP is up a little bit at 3945. Assessment of risk: Level of risk: Moderate risk patient. Elderly. Multiple comorbidities. Medical noncompliance at times. Hospitalization considerations: Patient is being observed. He has been pretty bradycardic probably secondary to the sotalol he has been on. Also my could use an echocardiogram. Change in meds. Reexamination: Patient remained stable. No increased work of breathing. No altered mental status. No focal motor deficits. He has been fairly bradycardic. Blood pressure did come down pretty significantly with a single clonidine. At admission he is 149/61. Consultation: I spoke with Dr. Wang who is on-call for the hospital service who agrees to admission Assessment and plan: Accelerated hypertension Bradycardia ?P.o. clonidine with some improvement in blood pressure -I discussed the patient with the hospitalist on-call who is admitting the patient. - Discussed findings and plan with patient. Answered any questions. - All laboratory values were reviewed and interpreted personally by myself, the ER physician - All imaging was reviewed and interpreted personally by myself, the ER physician. - Evaluation and treatment of this problem were appropriate in the emergency setting Lab Data 03/13/25 09:42 03/13/25 09:42 Radiology Impressions Chest X-Ray 03/13/25 09:32 IMPRESSION: No acute cardiopulmonary findings. Laboratory Results WBC 8.06 10^3/uL (3.29-11.43) 03/13/25 09:42 RBC 4.81 10^6/uL (3.85-5.65) 03/13/25 09:42 Hgb 15.20 g/dL (11.27-16.99) 03/13/25 09:42 Hct 44.6 % (37-53) 03/13/25 09:42 MCV 92.7 fl (82-101) 03/13/25 09:42 MCH 31.6 pg (27-33) 03/13/25 09:42 MCHC 34.1 g/dL (30-55) 03/13/25 09:42 RDW 11.9 % (12.1-15.1) L 03/13/25 09:42 Plt Count 219 10^3/cmm (157-399) 03/13/25 09:42 MPV 10.1 fL (7.4-10.4) 03/13/25 09:42 Neut % (Auto) 70.0 % 03/13/25 09:42 Lymph % (Auto) 16.1 % 03/13/25 09:42 [place] % (Auto) 9.8 % 03/13/25 09:42 Eos % (Auto) 3.1 % 03/13/25 09:42 Baso % (Auto) 0.5 % 03/13/25 09:42 Neut # (Auto) 5.64 10^3/uL (1.8-7.7) 03/13/25 09:42 Lymph # (Auto) 1.3 10^3/uL (0.8-4.8) 03/13/25 09:42 [place] # (Auto) 0.8 10^3/uL (0.2-0.9) 03/13/25 09:42 Eos # (Auto) 0.3 10^3/uL (0.0-0.8) 03/13/25 09:42 Baso # (Auto) 0.0 10^3/uL (0.0-0.1) 03/13/25 09:42 Nucleated RBC % (auto) 0 % 03/13/25 09:42 Nucleated RBCs # 0.0 /100WBC 03/13/25 09:42 Sodium 140 mmol/L (136-145) 03/13/25 09:42 Potassium 4.6 mmol/L (3.5-5.1) 03/13/25 09:42 Chloride 105 mmol/L (98-107) 03/13/25 09:42 Carbon Dioxide 25 mmol/L (22-29) 03/13/25 09:42 Anion Gap 14.6 (5-19) 03/13/25 09:42 BUN 17 mg/dL (8-23) 03/13/25 09:42 Creatinine 1.1 mg/dL (0.7-1.2) 03/13/25 09:42 GFR Calculation Not Reportable 03/13/25 09:42 Glucose 99 mg/dL (65-115) 03/13/25 09:42 Calculated Osmolality 292 mOsm/kg (285-295) 03/13/25 09:42 Calcium 9.8 mg/dL (8.5-10.5) 03/13/25 09:42 Total Bilirubin 0.7 mg/dL (0.15-1.2) 03/13/25 09:42 AST 18 U/L (0-40) 03/13/25 09:42 ALT 14 U/L (0-41) 03/13/25 09:42 Alkaline Phosphatase 76 U/L (40-130) 03/13/25 09:42 Troponin T Baseline 17 ng/L (0-15) H 03/13/25 09:42 Troponin T 120 Minute 14.93 ng/L (0-15) 03/13/25 11:42 Delta Troponin T -2.07 ABS# (0-10) L 03/13/25 11:42 NT-Pro-B Natriuret Pep 3945 pg/mL (0-450) H 03/13/25 09:42 Total Protein 6.6 g/dL (6.6-8.7) 03/13/25 09:42 Albumin 4.5 g/dL (3.5-5.2) 03/13/25 09:42 Globulin 2.1 g/dL (1.3-4.6) 03/13/25 09:42 All radiology interpretation(s) finalized by discharge Discharge Plan Discharge Patient Disposition: Admitted As Inpatient Admit Provider: Je Wang Clinical Impression: Accelerated hypertension, Bradycardia Condition: Stable Coding Level of Care Code ED Car Salesperson 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
[2025-03-13 09:55] LABS: Hematocrit 44.6 % (37-53); Hemoglobin 15.20 g/dL (11.27-16.99); Mean Corpuscular HGB Conc 34.1 g/dL (30-55); Mean Corpuscular Hemoglobin 31.6 pg (27-33); Mean Corpuscular Volume 92.7 fl (82-101); Nucleated Red Blood Cells % 0 %; Platelet Count 219 10^3/cmm (157-399); Red Blood Count 4.81 10^6/uL (3.85-5.65); White Blood Count 8.06 10^3/uL (3.29-11.43)
[2025-03-13 10:14] LABS: Troponin(5th) Baseline 17 ng/L (0-15)
[2025-03-13 10:23] LABS: Alanine Aminotransferase 14 U/L (0-41); Albumin Level 4.5 g/dL (3.5-5.2); Alkaline Phosphatase 76 U/L (40-130); Anion Gap 14.6 (5-19); Aspartate Amino Transferase 18 U/L (0-40); Blood Urea Nitrogen 17 mg/dL (8-23); Calcium 9.8 mg/dL (8.5-10.5); Carbon Dioxide 25 mmol/L (22-29); Chloride 105 mmol/L (98-107); Globulin 2.1 g/dL (1.3-4.6); Glucose 99 mg/dL (65-115); NT Pro B Type Natriuretic Pept 3945 pg/mL (0-450); Osmolality Calculated 292 mOsm/kg (285-295); Potassium 4.6 mmol/L (3.5-5.1); Sodium 140 mmol/L (136-145); Total Protein 6.6 g/dL (6.6-8.7)
--- NOTE | 2025-03-13 11:41 | ECG_ITS ---
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 Measurements Intervals [place] Rate: 39 P: 51 MA: 210 QRS: 111 QRSD: 145 T: 55 QT: 585 QTc: 475 Interpretive Statements SINUS BRADYCARDIA WITH FIRST DEGREE AV BLOCK RIGHT AXIS DEVIATION [QRS AXIS > 100] RIGHT BUNDLE BRANCH BLOCK [120+ ms QRS DURATION, UPRIGHT V1, 40+ ms S IN I/aVL/V4/V5/V6] PROLONGED QT INTERVAL CRITICAL TEST RESULT Compared to ECG 03/13/2025 10:04:25 Prolonged QT interval now present Ventricular premature complex(es) no longer present Electronically Signed On 03-13-2025 17:37:13 COTTON PICKER OPERATOR by Zoraida Enrique M.D. [id number] [id number]
[2025-03-13 12:05] LABS: Troponin 5 2HR 14.93 ng/L (0-15)
[2025-03-13 12:06] LABS: Troponin 5 2HR Delta -2.07 ABS# (0-10)
--- NOTE | 2025-03-13 13:40 | PM.HP ---
Providers/Chief Complaint Admitting Physician: Je Wang Primary Care Provider: Thom George Chief Complaint: high bp History of Present Illness Jong Higuera is a 85 year old gentleman with a history of atrial fibrillation, congestive heart failure with previously normal ejection fraction (2020) and grade 2 diastolic dysfunction, mild pulmonary hypertension, coronary artery disease with prior cardiac stents (2014), obstructive sleep apnea, hypertension, and benign prostatic hyperplasia who presented to the emergency department due to elevated blood pressure. Reports generalized weakness and low energy for several months. Denies chest pain, pressure, fever, chills, sore throat, runny nose, sneezing, nausea, vomiting, or diarrhea. Has not tolerated continuous positive airway pressure (CPAP) for sleep apnea; prior sleep study approximately 10?12 years ago. In the emergency department, initial blood pressure was as high as 224/122 mmHg with bradycardia noted, heart rate down to 37 beats per minute. Electrocardiogram showed sinus bradycardia with first-degree atrioventricular block, premature atrial contractions, right axis deviation, and right bundle branch block. Chest radiograph showed no acute cardiopulmonary findings. Reported respiratory rate 17, temperature 98?F, and oxygen saturation 94% on room air. Laboratory panels including complete blood count, basic metabolic parameters (sodium, potassium, chloride, bicarbonate, blood urea nitrogen, creatinine), liver function tests (total bilirubin, aspartate aminotransferase, alanine aminotransferase, alkaline phosphatase), and total protein/albumin/globulin were within normal limits. NT-proBNP 3945. In the emergency department he received clonidine 0.1 mg. QTc in the emergency department noted at 485 ms. Home medications include sotalol 80 mg by mouth twice daily, tamsulosin, tadalafil, finasteride, dorzolamide eye drops, and a multivitamin. He started the new medication (sotalol) last Friday and has taken approximately five doses; notes his heart rate has been running low (38?40 bpm). Prior COVID-19 hospitalization during which atrial fibrillation occurred. Prior code status documented as full code in 2020. Code status conversation today: he does not want chest compressions (concerned about rib fractures) if cardiac arrest occurs; is amenable to measures such as temporary ventilatory support, cardioversion/defibrillation, or pacemaker if needed. He inquired about the chest x-ray; was informed it was without pneumonia or acute findings. Plans and considerations discussed included holding/discontinuing sotalol, checking thyroid studies, monitoring heart rate and blood pressure, initiating a different antihypertensive (e.g., lisinopril) that would not further slow heart rate, possible repeat sleep study and retrying CPAP with a nasal interface, and possibly obtaining a repeat echocardiogram. Disposition discussed as potential discharge the following day if stable. Review of Systems Const: Reports: fatigue; Denies: fever(s), chills, body aches or malaise ENMT: Denies: throat pain Card: Denies: chest pain, edema, pre-syncope or dyspnea on exertion Resp: Denies: dyspnea, productive cough, change in phlegm color or hemoptysis GI: Denies: abdominal pain, nausea, vomiting, diarrhea, constipation, hematochezia or melena : Denies: flank pain, difficulty urinating, urinary frequency or hematuria Musc: Denies: back pain, joint swelling or joint redness Skin/Breast: Denies: rash or new lesions Neuro: Denies: headache(s) or confusion Medications/Allergies Home Medications ?Medication ?Instructions ?Recorded ?Confirmed ?Last Taken ?Type finasteride 5 mg tablet See Rx Instructions .Route 03/30/24 03/13/25 03/13/25 08:30 Rx .COMPLEX #90 tabs tamsulosin 0.4 mg capsule See Rx Instructions .Route 05/27/24 03/13/25 03/13/25 09:00 Rx .COMPLEX #180 caps dorzolamide 22.3 mg-timolol 6.8 1 drp ophthalmic (eye) BID 10/09/24 03/13/25 03/13/25 08:00 History mg/mL eye drops sotalol 80 mg tablet 80 mg PO BID #60 tabs 03/08/25 03/13/25 03/13/25 08:00 Rx latanoprost 0.005 % eye drops 1 drp ophthalmic (eye) BEDTIME 03/13/25 03/13/25 Unknown History multivitamin with minerals 1 tab PO DAILY 03/13/25 03/13/25 03/13/25 History eacqobav-ifnvikggm-bjiiwgmi 3.5 See Rx Instructions .Route .COMPLEX 03/13/25 03/13/25 03/13/25 09:00 History mg/mL-10,000 unit/mL-0.1% eye drops tadalafil 20 mg tablet 20 mg PO PRN 03/13/25 03/13/25 Unknown History tadalafil 5 mg tablet 5 mg PO DAILY 03/13/25 03/13/25 Unknown History Allergies Allergy/AdvReac Type Severity Reaction Status Date / Time No Known Allergies Allergy Verified 03/13/25 09:35 PFSH Acute PFSH: Medical History BPH w urinary obs/LUTS Atrial fibrillation Seems to come and go mostly in the middle of the night per patient. CHF (congestive heart failure), NYHA class III Coronary artery disease Hyperlipidemia Obstructive sleep apnea BPH (benign prostatic hyperplasia) Essential hypertension Surgical History History of cataract surgery Bilateral Hx of tonsillectomy Hx of heart artery stent x 3 -- last around 2014 Family History Mother , at age 65 Heart disease Father , in WW 2 No problems noted. Social History Smoking and tobacco/nicotine status: never used tobacco/nicotine Alcohol intake: current Alcohol type: wine Substance/Drug Use: never Adopted: No Caregiver/support person: No Lives independently: Yes Marital status: / Current occupational status: retired Sexually active: No Do you think of yourself as: Straight/Heterosexual Current gender identity: Male Vitals/I&O/Wt Last Vital Signs Temp 98 F 03/13/25 09:31 Pulse 40 L 03/13/25 12:34 Resp 17 03/13/25 10:35 BP 149/61 03/13/25 12:34 Pulse Ox 94 03/13/25 12:34 O2 Del Method Room Air 03/13/25 10:35 03/12/25 03/13/25 03/13/25 22:59 06:59 14:59 Intake Total 0 / 0 Balance 0 / 0 Weight last 48 hrs Weight 82.2 kg Weight 81.647 kg Physical Exam Narrative: Accompanied by his Const: COMMON NORMALS: patient oriented x3 and alert GENERAL APPEARANCE: cooperative ORIENTATION/CONSCIOUSNESS: Yes awake HENMT: COMMON NORMALS: oropharynx normal Neck/C-Spine: COMMON NORMALS: no JVD Resp: COMMON NORMALS: normal respiratory effort and clear to auscultation bilaterally AUSCULTATION: clear to auscultation bilaterally Cardio: COMMON NORMALS: no JVD, regular rhythm, S1 normal heart sound present, S2 normal heart sound present and No murmurs present (Cardio) RHYTHM: regular rhythm HEART SOUNDS: S1 normal heart sound present and S2 normal heart sound present GI: COMMON NORMALS: Normal to inspection, nondistended, normoactive bowel sounds present, Soft to palpation and non-tender PALPATION: Yes Soft to palpation Extremity: COMMON NORMALS: no joint enlargement and no pedal edema Neuro: COMMON NORMALS: patient oriented x3 and moves all extremities SENSORIUM/ORIENTATION: Yes alert Skin: COMMON NORMALS: no rashes or lesions noted GENERAL SKIN EXAM: no rashes or lesions noted Data 03/13/25 09:42 03/13/25 09:42 A&P Assessment and plan 1. Hypertensive urgency: Hypertensive urgency with sinus bradycardia. Presented with markedly elevated blood pressure up to 224/122 mmHg, HR 37-40; received clonidine 0.1 mg in the emergency department. Plans discussed to initiate an antihypertensive that does not lower heart rate. - Do not continue clonidine (per discussion) - Initiate a different blood pressure medication that should not slow heart rate - lisinopril as discussed -IV hydralazine as needed in case of worsening blood pressure. - Monitor blood pressure Plan: Sinus bradycardia with QT prolongation: Heart rate reported as low as 37?40 bpm; associated with fatigue/low energy; QTc 485 ms in ED. reviewed vitals, CBC, CMP, troponin, UA, EKG, chest x-ray, ED provider note, discussed with ED provider. - Discontinue sotalol due to low heart rate and QT prolongation. Monitor for risk of tachycardia. Continue cardiac monitoring. - Monitor heart rate - Check thyroid studies (to evaluate for contributing factors) -Assess TTE - As discussed with untreated ASHKAN contributing to hypertension would benefit from repeat sleep study and use of CPAP Atrial fibrillation (history) : History of atrial fibrillation during prior COVID-19 hospitalization; currently in sinus rhythm. - Hold/discontinue sotalol (as above) Obstructive sleep apnea with CPAP intolerance : Known ASHKAN with intolerance to CPAP; untreated ASHKAN may contribute to hypertension. - Would benefit from repeat sleep study given lapse of ~10?12 years - Discuss retrying CPAP with nasal interface options Coronary artery disease with prior stents : History of percutaneous coronary intervention with stent placement in 2014; not currently on antiplatelet therapy. - Recommend baby aspirin if no bleeding history/issues. He and his are agreeable. - Discuss potential benefit of statin therapy, however, he prefers not to restart 1 at this time Heart failure with preserved ejection fraction and grade 2 diastolic dysfunction : Prior echocardiogram (2020) with normal ejection fraction and grade 2 diastolic dysfunction; mild pulmonary hypertension. - Consider repeat transthoracic echocardiogram (ultrasound of the heart) Mild pulmonary hypertension : Previously noted on echocardiogram. Benign prostatic hyperplasia : Chronic condition on home medications (tamsulosin, finasteride). History of stroke : Patient reports prior stroke and bruising with clopidogrel; advised baby aspirin acceptable. - Recommend baby aspirin if no bleeding issues (as above) Generalized weakness/fatigue : Reports several months of low energy; may be associated with bradycardia. - Address bradycardia as above - Check thyroid studies (as above) - assess TTE Code status discussion : Patient declines chest compressions if cardiac arrest occurs; is amenable to interventions such as temporary ventilatory support, cardioversion/defibrillation, or pacemaker if needed. - Document patient preference: no chest compressions; okay with temporary ventilation, cardioversion/defibrillation, or pacemaker if indicated PDMP PDMP Reviewed: Not Reviewed Attestations Medical Necessity Statement*: Place in observation for assessment and management of hypertensive urgency, sinus bradycardia. Diagnoses Hypertensive urgency I16.0
[2025-03-13 14:27] LABS: Glucose Urine UA Negative (Normal); Nitrate Urine Negative (Negative); Specific Gravity, Urine 1.019 (1.005-1.030)
[2025-03-13 14:32] LABS: Add Urine Microscopic? YES
[2025-03-13 15:05] LABS: Magnesium 1.8 mg/dL (1.7-2.3); Thyroid Stimulating Hormone 2.37 uIU/mL (0.27-4.20)
--- NOTE | 2025-03-13 15:32 | ECG_ITS ---
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 Measurements Intervals [place] Rate: 56 P: 49 [place]: 229 QRS: 112 QRSD: 156 T: -5 QT: 511 QTc: 496 Interpretive Statements SINUS BRADYCARDIA WITH FIRST DEGREE AV BLOCK RIGHT AXIS DEVIATION [QRS AXIS > 100] RIGHT BUNDLE BRANCH BLOCK [120+ ms QRS DURATION, UPRIGHT V1, 40+ ms S IN I/aVL/V4/V5/V6] Compared to ECG 03/13/2025 11:41:53 Prolonged QT interval no longer present Electronically Signed On 03-13-2025 17:32:35 NANOTECHNOLOGY TECHNICIAN by Zoraida Enrique M.D. [id number] [id number]
[2025-03-13 15:53] LABS: Troponin 5 6HR 15.09 ng/L (0-15)
[2025-03-13 15:54] LABS: Troponin 5 6HR Delta -1.91 ng/L (0-12)
--- OUTSIDE RECORDS SUMMARY | 2025-03-13 16:10 | XMS_ITS | Encounter Summary ---
Author Organization [facility] Address [address] [place] [address] Care Team Providers Care Bank Teller Name Role Phone Doris Morrison, Thom LINARES Primary Care Pro vider Encounter Details Date Type Department Care Team (Late st Contact Info) Description 01/21/2020 Lab Requisition [facility] Laboratory Services [id number] [place] [phone] Thom Vickers MD [address] [place] [phone] Social History Tobacco Use Types Packs/Day Years Used Date Smoking Tobacco: Never Smokeless Tobacco: Never Alcohol Use Standard Drinks/Week Comments No 0 (1 standard drink = 0.6 oz pur e alcohol) Sex and Gender Information Value Date Recorded Sex Assigned at Not on file 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 Sex 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 Gender Identity Not on file Sexual [...] (ABNORMAL) MANUAL DIFFERENTIAL (01/21/2020 3:00 AM CDT) [facility] SEGMENTED NEUTROPHILS 80(H) 36 - 66 % 01/21/2020 6:13 AM CDT [facility] BANDS RELATIVE 1 0 - 6 % 01/21/2020 6:13 AM CDT [facility] LYMPHOCYTES RELATIVE 9(L) 24 - 44 % 01/21/2020 6:13 AM CDT [facility] MONOCYTES RELATIVE 10 4 - 10 % 01/21/2020 6:13 AM CDT [facility] NEUTROPHILS ABSOLUTE COUNT 12.96(H) 2.00 - 8.00 K/uL 01/21/2020 6:13 AM CDT [facility] LYMPHOCYTES ABSOLUTE 1.44 1.20 - 4.00 K/uL 01/21/2020 6:13 AM CDT [facility] MONOCYTES ABSOLUTE 1.60(H) 0.10 - 0.60 K/uL 01/21/2020 6:13 AM CDT [facility] TOTAL CELLS COUNTED IN DIFF 100 01/21/2020 6:13 AM CDT [facility] PLATELET EST. Adequate 01/21/2020 6:13 AM CDT [facility] RBC MORPHOLOGY Normal 01/21/2020 6:13 AM T [facility] Blood Collection / Unknown 01/21/2020 3:00 AM CDT 01/21/2020 5:44 AM CDT us Thom Vickers MD HEMATOLOGY ORDERABLES COM Final Result [facility] [address] [place] [address] * PHOSPHORUS (01/21/2020 3:00 AM CDT) PHOSPHORUS 3.9 2.5 - 4.5 mg/dL 01/21/2020 7:05 AM CDT [facility] Blood Collection / Unknown 01/21/2020 3:00 AM CDT 01/21/2020 5:44 AM CDT Thom Vickers MD CHEMISTRY ORDERABLES Final Resu lt Performing Organization Address [facility]/ZIP Co de Phone Number [facility] [address] [place] [id number] * MAGNESIUM LEVEL (01/21/2020 3:00 AM CDT) Pathologist [facility] MAGNESIUM 2.2 1.6 - 2.4 mg/dL 01/21/2020 7:05 AM CDT [facility] Blood Collection / Unknown 01/21/2020 3:00 AM CDT 01/21/2020 5:44 AM CDT Thom Vickers MD CHEMISTRY ORDERABLES Final Resu lt Performing Organization Address City/[facility]/ZIP Co de Phone Number [facility] [address] [place] [address] * (ABNORMAL) COMPREHENSIVE METABOLIC PANEL (01/21/2020 3:00 AM CDT) SODIUM 138 136 - 145 mmol/L 01/21/2020 7:05 AM CDT [facility] POTASSIUM 4.8 3.5 - 5.1 mmol/L 01/21/2020 7:05 AM CDT [facility] [employer] [facility] CHLORIDE 102 98 - 107 mmol/L 01/21/2020 7:05 AM CDT [facility] CO2 24 22 - 29 mmol/L 01/21/2020 7:05 AM CDT [facility] CALCIUM 9.1 8.8 - 10.2 mg/dL 01/21/2020 7:05 AM [facility] BUN 49(H) 8 - 23 mg/dL 01/21/2020 7:05 AM [facility] CREATININE 1.10 0.67 - 1.17 mg/dL 01/21/2020 7:05 AM [facility] Comment:The GFR result is no t clinically significant on patients <18 or >70 years of age. GLUCOSE 127(H) 74 - 99 mg/dL 01/21/2020 7:05 AM [facility] TOTAL PROTEIN 6.3(L) 6.4 - 8.3 g/dL 01/21/2020 7:05 AM [facility] ALBUMIN 2.6(L) 3.5 - 5.2 g/dL 01/21/2020 7:05 AM [facility] BILIRUBIN TOTAL 0.9 0.2 - 1.0 mg/dL 01/21/2020 7:05 AM [facility] ALKALINE PHOSPHATASE 75 40 - 129 U/L 01/21/2020 7:05 AM [facility] AST 48 10 - 50 U/L 01/21/2020 7:05 AM [facility] ALT 68(H) <=50 U/L 01/21/2020 7:05 AM [facility] GFR >60 mL/min/1.7 3 sq meter 01/21/2020 7:05 AM [facility] Comment: eGFR has not been validated [...] 3 sq meter 01/21/2020 7:05 AM [facility] ANION GAP 12 9 - 20 mmol/L 01/21/2020 7:05 AM CDT [facility] [employer] [facility] Blood Collection / Unknown 01/21/2020 3:00 AM CDT 01/21/2020 5:44 AM CDT us Thom Vickers MD CHEMISTRY ORDERABLES Final Resu lt [facility] [address] [place] [address] * (ABNORMAL) CBC WITH DIFFERENTIAL (01/21/2020 3:00 AM CDT) WBC 16.0(H) 4.8 - 10.8 K/uL 01/21/2020 6:13 AM CDT [facility] RBC 5.13 4.60 - 6.20 M/uL 01/21/2020 6:13 AM CDT [facility] HEMOGLOBIN 15.6 14.0 - 18.0 g/dL 01/21/2020 6:13 AM CDT [facility] HEMATOCRIT 48.1 41.0 - 53.0 % 01/21/2020 6:13 AM CDT [facility] MCV 93.8 84.0 - 103.0 fL 01/21/2020 6:13 AM CDT [facility] MCH 30.4 27.0 - 34.0 pg 01/21/2020 6:13 AM CDT [facility] MCHC 32.4 30.0 - 35.0 g/dL 01/21/2020 6:13 AM CDT [facility] RDW 12.7 11.0 - 14.5 % 01/21/2020 6:13 AM CDT [facility] [employer] [facility] RDW-STDEV 43.6 37.0 - 54.0 fL 01/21/2020 6:13 AM CDT [facility] PLATELETS 360 140 - 440 K/uL 01/21/2020 6:13 AM CDT [facility] [employer] [facility] MPV 10.1 8.9 - 12.8 fL 01/21/2020 6:13 AM CDT [facility] LABORATORY [facility] Blood Collection / Unknown 01/21/2020 3:00 AM CDT 01/21/2020 5:44 AM CDT us Thom Vickers MD HEMATOLOGY ORDERABLES Final Res ult [facility] [address] [place] [address] documented in this encounter Visit Diagnoses Not on filedocumented in this encounter Additional Health Concerns Infection Onset Date Last Indicated Resolved Time COVID-19 01/16/2020 01/16/2020 02/05/2020 8:09 PM CDT COVID-19 02/07/2020 02/07/2020 03/08/2020 8:08 PM LOSS PREVENTION MANAGER documented as of this encounter Care Teams Bank Teller Relationship Specialty Start Date End Date Doris Morrison, VIJAY Brandon [address] [place] [address] PCP - General NURSE PRACTITIONER 01/27/15 documented as of this encounter
--- OUTSIDE RECORDS SUMMARY | 2025-03-13 16:10 | XMS_ITS | Encounter Summary ---
Author Organization [facility] Address [address] [place] [address] Care Team Providers Care Journeyman Painter Name Role Phone Doris Morrison, VIJAY, Thom Bhatt Primary Care Pro vider Encounter Details Date Type Department Care Team (Late st Contact Info) Description 02/07/2020 Lab Requisition [facility] Laboratory Services [address] [place] [phone] Mulugeta Fang MD NO ADDRESS ON FILE Social History Tobacco Use Types Packs/Day Years Used Date Smoking Tobacco: Never Smokeless Tobacco: Never Alcohol Use Standard Drinks/Week Comments No 0 (1 standard drink = 0.6 oz pur e alcohol) Sex and Gender Information Value Date Recorded Sex Assigned at Not on file 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 Due to the current public health emergency, [facility] is receiving a high volume of samples [...] about COVID-19 can be found at the [facility] website: www.[employer].Right Hem[employer]here/Covid19. Upper Respiratory ENTIRE NASOPHARYNX / Unknown Collection / Unknown 02/07/2020 3:12 PM CDT 02/07/2020 3:52 PM CDT Narrative [facility] - 02/08/2020 10:53 AM CDT Performing Organization Information: Site ID: MD Name: [facility] Address: [address] [address] Director: Kenton Martinez D.O., MPH us Mulugeta Fang MD MICROBIOLOGY - GENERAL ORDERAB LES Final Result [facility] [phone] documented in this encounter Visit Diagnoses Not on filedocumented in this encounter Additional Health Concerns Infection Onset Date Last Indicated Resolved Time COVID-19 02/07/2020 02/07/2020 03/08/2020 8:08 PM SQUIRT MACHINE OPERATOR documented as of this encounter Care Teams Journeyman Painter Relationship Specialty Start Date End Date Doris Morrison, VIJAY Brandon [address] [place] [address] PCP - General NURSE PRACTITIONER 01/27/15 documented as of this encounter
--- OUTSIDE RECORDS SUMMARY | 2025-03-13 16:10 | XMS_ITS | Encounter Summary ---
Author Organization [facility] Address [address] [place] [address] Care Team Providers Care Manager Multicultural Name Role Phone Doris Morrison, Thom LINARES Primary Care Pro vider Encounter Details Date Type Department Care Team (Late st Contact Info) Description 02/03/2020 Lab Requisition [facility] Laboratory Services [phone] [place] [phone] Thom Vickers MD [address] [place] [phone] Social History Tobacco Use Types Packs/Day Years Used Date Smoking Tobacco: Never Smokeless Tobacco: Never Alcohol Use Standard Drinks/Week Comments No 0 (1 standard drink = 0.6 oz pur e alcohol) Sex and Gender Information Value Date Recorded Sex Assigned at Not on file 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 Blood Collection / Unknown 02/03/2020 4:00 AM CDT 02/03/2020 6:43 AM CDT Thom Vickers MD CHEMISTRY ORDERABLES Final Resu lt [facility] [address] [place] [address] * (ABNORMAL) COMPREHENSIVE METABOLIC PANEL (02/03/2020 4:00 AM CDT) SODIUM 133(L) 136 - 145 mmol/L 02/03/2020 7:[address] [facility] POTASSIUM 4.4 3.5 - 5.1 mmol/L 02/03/2020 7:[address] [facility] CHLORIDE 103 98 - 107 mmol/L 02/03/2020 7:[address] [facility] CO2 23 22 - 29 mmol/L 02/03/2020 7:[address] [facility] CALCIUM 8.1(L) 8.8 - 10.2 mg/dL 02/03/2020 7:[address] [facility] BUN 18 8 - 23 mg/dL 02/03/2020 7:[address] [facility] CREATININE 0.88 0.67 - 1.17 mg/dL 02/03/2020 7:[address] [facility] Comment:The GFR result is no t clinically significant on patients <18 or >70 years of age. GLUCOSE 99 74 - 99 mg/dL 02/03/2020 7:[address] [facility] TOTAL PROTEIN 4.7(L) 6.4 - 8.3 g/dL 02/03/2020 7:14 AM [facility] ALBUMIN 2.1(L) 3.5 - 5.2 g/dL 02/03/2020 7:14 AM [facility] BILIRUBIN TOTAL 0.5 0.2 - 1.0 mg/dL 02/03/2020 7:14 AM [facility] ALKALINE PHOSPHATASE 81 40 - 129 U/L 02/03/2020 7:14 AM [facility] AST 42 10 - 50 U/L 02/03/2020 7:14 AM [facility] ALT 68(H) <=50 U/L 02/03/2020 7:14 AM [facility] GFR >60 mL/min/1.7 3 sq meter 02/03/2020 7:14 AM [facility] Comment: eGFR has not been validated [...] 3 sq meter 02/03/2020 7:14 AM T [facility] ANION GAP 7(L) 9 - 20 mmol/L 02/03/2020 7:14 AM [facility] Blood Collection / Unknown 02/03/2020 4:00 AM CDT 02/03/2020 6:43 AM CDT us Thom Vickers MD CHEMISTRY ORDERABLES Final Resu lt [facility] [address] [place] [address] * (ABNORMAL) CBC WITHOUT DIFFERENTIAL (02/03/2020 4:00 AM CDT) WBC 8.5 4.8 - 10.8 K/uL 02/03/2020 7:41 AM CDT [facility] RBC 3.68(L) 4.60 - 6.20 M/uL 02/03/2020 7:41 AM CDT [facility] HEMOGLOBIN 11.4(L) 14.0 - 18.0 g/dL 02/03/2020 7:41 AM CDT [facility] HEMATOCRIT 34.3(L) 41.0 - 53.0 % 02/03/2020 7:41 AM CDT [facility] MCV 93.2 84.0 - 103.0 fL 02/03/2020 7:41 AM CDT [facility] MCH 31.0 27.0 - 34.0 pg 02/03/2020 7:41 AM CDT [facility] MCHC 33.2 30.0 - 35.0 g/dL 02/03/2020 7:41 AM CDT [facility] PLATELETS 138(L) 140 - 440 K/uL 02/03/2020 7:41 AM CDT [facility] MPV 10.3 8.9 - 12.8 fL 02/03/2020 7:41 AM CDT [facility] RDW 13.0 11.0 - 14.5 % 02/03/2020 7:41 AM CDT [facility] RDW-STDEV 44.2 37.0 - 54.0 fL 02/03/2020 7:41 AM CDT [facility] Blood Collection / Unknown 02/03/2020 4:00 AM CDT 02/03/2020 6:42 AM CDT us Thom Vickers MD HEMATOLOGY ORDERABLES Final Res ult [facility] [address] [place], [place] [id number] documented in this encounter Visit Diagnoses Not on filedocumented in this encounter Additional Health Concerns Infection Onset Date Last Indicated Resolved Time COVID-19 01/16/2020 01/16/2020 02/05/2020 8:09 PM CDT COVID-19 02/07/2020 02/07/2020 03/08/2020 8:08 PM OCCUPATIONAL ANALYST documented as of this encounter Care Teams Manager Multicultural Relationship Specialty Start Date End Date Doris Morrison, VIJAY [address] [place] [address] PCP - General NURSE PRACTITIONER 01/27/15 documented as of this encounter
--- OUTSIDE RECORDS SUMMARY | 2025-03-13 16:10 | XMS_ITS | Encounter Summary ---
Author Organization [facility] Address [address] [place] [address] Care Team Providers Care Smash Fixer Name Role Phone Doris Morrison, Thom LINARES Primary Care Pro vider Encounter Details Date Type Department Care Team (Late st Contact Info) Description 2020 Lab Requisition [facility] Laboratory Services [address] [place] [phone] Thom Vickers MD [address] [place] [phone] Social History Tobacco Use Types Packs/Day Years Used Date Smoking Tobacco: Never Smokeless Tobacco: Never Alcohol Use Standard Drinks/Week Comments No 0 (1 standard drink = 0.6 oz pur e alcohol) Sex and Gender Information Value Date Recorded Sex Assigned at Not on file 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 Gender Identity Not on file Sexual Orientation [...] - 145 mmol/L 2020 5:45 AM CDT [facility] POTASSIUM 4.2 3.5 - 5.1 mmol/L 2020 5:45 AM CDT [facility] CHLORIDE 104 98 - 107 mmol/L 2020 5:45 AM T [facility] CO2 23 22 - 29 mmol/L 2020 5:45 AM [facility] CALCIUM 7.9(L) 8.8 - 10.2 mg/dL 2020 5:45 AM T [facility] BUN 16 8 - 23 mg/dL 2020 5:45 AM T [facility] CREATININE 0.83 0.67 - 1.17 mg/dL 2020 5:45 AM T [facility] Comment:The GFR result is no t clinically significant on patients <18 or >70 years of age. GLUCOSE 107(H) 74 - 99 mg/dL 2020 5:45 AM [facility] GFR >60 mL/min/1.7 3 sq meter 2020 5:45 AM [facility] Comment: eGFR has not been validated [...] 3 sq meter 2020 5:45 AM T [facility] ANION GAP 7(L) 9 - 20 mmol/L 2020 5:45 AM [facility] Blood Collection / Unknown 2020 3:30 AM CDT 2020 5:27 AM CDT Thom Vickers MD CHEMISTRY ORDERABLES Final Resu lt [facility] [address] [place] [address] documented in this encounter Visit Diagnoses Not on filedocumented in this encounter Additional Health Concerns Infection Onset Date Last Indicated Resolved Time COVID-19 01/16/2020 01/16/2020 02/05/2020 8:09 PM CDT COVID-19 02/07/2020 02/07/2020 03/08/2020 8:08 PM IRRIGATOR documented as of this encounter Care Teams Smash Fixer Relationship Specialty Start Date End Date Doris Morrison, VIJAY Brandon [address] [place] [address] PCP - General NURSE PRACTITIONER 01/27/15 documented as of this encounter
--- OUTSIDE RECORDS SUMMARY | 2025-03-13 16:10 | XMS_ITS | Encounter Summary ---
Author Organization [facility] Address [address] [place] [address] Care Team Providers Care Insurance Investigator Name Role Phone Doris Morrison, Thom LINARES Primary Care Pro vider Encounter Details Date Type Department Care Team (Late st Contact Info) Description 01/24/2020 Lab Requisition [facility] Laboratory Services [phone] [place] [phone] Thom Vickers MD [address] [place] [phone] Social History Tobacco Use Types Packs/Day Years Used Date Smoking Tobacco: Never Smokeless Tobacco: Never Alcohol Use Standard Drinks/Week Comments No 0 (1 standard drink = 0.6 oz pur e alcohol) Sex and Gender Information Value Date Recorded Sex Assigned at Not on file Legal Sex Male 4:56 AM PULL OVER Gender Identity Not on file Sexual Orientation [...] 0.50 ug/mL FEU 01/24/2020 6:28 AM CDT [facility] [employer] [facility] Blood Collection / Unknown 01/24/2020 2:51 AM CDT 01/24/2020 6:04 AM CDT Narrative [facility] [employer] [facility] - 01/24/2020 6:28 AM CDT Various clinical studies utilizing this method have shown that a result of < 0.5 ug/ml FEU excludes deep vein thrombosis and pulmonary embolism with high sensitivity when used in conjunction with a non-high clinical pre-test probability assessment. Thom Vickers MD HEMATOLOGY ORDERABLES Final Res ult Performing Organization Address [facility]/ZIP Co de Phone Number [address] [address] * (ABNORMAL) BRAIN NATRIURETIC PEPTIDE, BNP OR PROBNP (01/24/2020 2:51 AM CDT) PROBNP, N TERMINAL 1,709(H) 0 - 450 pg/mL 01/24/2020 6:40 AM CDT [facility] Blood Collection / Unknown 01/24/2020 2:51 AM CDT 01/24/2020 6:04 AM CDT Thom Vickers MD CHEMISTRY ORDERABLES Final Resu lt [facility] [address] [place] [address] * MAGNESIUM LEVEL (01/24/2020 2:51 AM CDT) [facility] MAGNESIUM 2.0 1.6 - 2.4 mg/dL 01/24/2020 6:40 AM CDT [facility] Blood Collection / Unknown 01/24/2020 2:51 AM CDT 01/24/2020 6:04 AM CDT us Thom Vickers MD CHEMISTRY ORDERABLES Final Resu lt [facility] [address] [place] [address] * (ABNORMAL) COMPREHENSIVE METABOLIC PANEL (01/24/2020 2:51 AM CDT) [facility] SODIUM 132(L) 136 - 145 mmol/L 01/24/2020 6:40 AM CDT [facility] POTASSIUM 4.6 3.5 - 5.1 mmol/L 01/24/2020 6:40 AM T [facility] CHLORIDE 99 98 - 107 mmol/L 01/24/2020 6:40 AM T [facility] CO2 22 22 - 29 mmol/L 01/24/2020 6:40 AM T [facility] CALCIUM 8.7(L) 8.8 - 10.2 mg/dL 01/24/2020 6:40 AM T [facility] BUN 43(H) 8 - 23 mg/dL 01/24/2020 6:40 AM T [facility] CREATININE 0.84 0.67 - 1.17 mg/dL 01/24/2020 6:40 AM T [facility] Comment:The GFR result is no t clinically significant on patients <18 or >70 years of age. GLUCOSE 107(H) 74 - 99 mg/dL 01/24/2020 6:40 AM T [facility] TOTAL PROTEIN 5.3(L) 6.4 - 8.3 g/dL 01/24/2020 6:40 AM CDT [facility] ALBUMIN 2.4(L) 3.5 - 5.2 g/dL 01/24/2020 6:40 AM CDT [facility] BILIRUBIN TOTAL 0.8 0.2 - 1.0 mg/dL 01/24/2020 6:40 AM CDT [facility] ALKALINE PHOSPHATASE 64 40 - 129 U/L 01/24/2020 6:40 AM CDT [facility] AST 45 10 - 50 U/L 01/24/2020 6:40 AM T [facility] ALT 72(H) <=50 U/L 01/24/2020 6:40 AM CDT [facility] GFR >60 mL/min/1.7 3 sq meter 01/24/2020 6:40 AM CDT [facility] Comment: eGFR has not been [...] 3 sq meter 01/24/2020 6:40 AM CDT [facility] ANION GAP 11 9 - 20 mmol/L 01/24/2020 6:40 AM T [facility] Blood Collection / Unknown 01/24/2020 2:51 AM CDT 01/24/2020 6:04 AM CDT us Thom Vickers MD CHEMISTRY ORDERABLES Final Resu lt [facility] [address] [place] [address] * (ABNORMAL) CBC WITHOUT DIFFERENTIAL (01/24/2020 2:51 AM CDT) Pathologist [facility] WBC 16.9(H) 4.8 - 10.8 K/uL 01/24/2020 6:21 AM CDT [facility] RBC 4.77 4.60 - 6.20 M/uL 01/24/2020 6:21 AM CDT [facility] HEMOGLOBIN 14.4 14.0 - 18.0 g/dL 01/24/2020 6:21 AM CDT [facility] HEMATOCRIT 43.3 41.0 - 53.0 % 01/24/2020 6:21 AM CDT [facility] MCV 90.8 84.0 - 103.0 fL 01/24/2020 6:21 AM CDT [facility] MCH 30.2 27.0 - 34.0 pg 01/24/2020 6:21 AM CDT [facility] MCHC 33.3 30.0 - 35.0 g/dL 01/24/2020 6:21 AM CDT [facility] PLATELETS 376 140 - 440 K/uL 01/24/2020 6:21 AM CDT [facility] MPV 9.7 8.9 - 12.8 fL 01/24/2020 6:21 AM CDT [facility] RDW 12.6 11.0 - 14.5 % 01/24/2020 6:21 AM T [facility] RDW-STDEV 41.2 37.0 - 54.0 fL 01/24/2020 6:21 AM T [facility] Blood Collection / Unknown 01/24/2020 2:51 AM CDT 01/24/2020 6:04 AM CDT us Thom Vickers MD HEMATOLOGY ORDERABLES Final Res ult [facility] [address] [place] [address] documented in this encounter Visit Diagnoses Not on filedocumented in this encounter Additional Health Concerns Infection Onset Date Last Indicated Resolved Time COVID-19 01/16/2020 01/16/2020 02/05/2020 8:09 PM CDT COVID-19 02/07/2020 02/07/2020 03/08/2020 8:08 PM PULL OVER documented as of this encounter Care Teams Insurance Investigator Relationship Specialty Start Date End Date Doris Morrison, VIJAY Brandon [address] [place] [address] PCP - General NURSE PRACTITIONER 01/27/15 documented as of this encounter
--- OUTSIDE RECORDS SUMMARY | 2025-03-13 16:10 | XMS_ITS | Encounter Summary ---
Author Organization [facility] Address [address] [place] [address] Care Team Providers Care Vet Tech Name Role Phone Doris Morrison, Thom LINARES Primary Care Pro vider Encounter Details Date Type Department Care Team (Late st Contact Info) Description 01/29/2020 Lab Requisition [facility] Laboratory Services [id number] [place] [phone] Thom Vickers MD [address] [place] [phone] Social History Tobacco Use Types Packs/Day Years Used Date Smoking Tobacco: Never Smokeless Tobacco: Never Alcohol Use Standard Drinks/Week Comments No 0 (1 standard drink = 0.6 oz pur e alcohol) Sex and Gender Information Value Date Recorded Sex Assigned at Not on file 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 CHLORIDE 98 98 - 107 mmol/L 01/29/2020 5:46 AM [facility] CO2 22 22 - 29 mmol/L 01/29/2020 5:46 AM [facility] CALCIUM 7.9(L) 8.8 - 10.2 mg/dL 01/29/2020 5:46 AM [facility] BUN 36(H) 8 - 23 mg/dL 01/29/2020 5:46 AM [facility] CREATININE 0.93 0.67 - 1.17 mg/dL 01/29/2020 5:46 AM [facility] Comment:The GFR result is no t clinically significant on patients <18 or >70 years of age. GLUCOSE 96 74 - 99 mg/dL 01/29/2020 5:46 AM [facility] GFR >60 mL/min/1.7 3 sq meter 01/29/2020 5:46 AM [facility] Comment: eGFR has not been [...] mL/min/1.7 3 sq meter 01/29/2020 5:46 AM [facility] ANION GAP 7(L) 9 - 20 mmol/L 01/29/2020 5:46 AM [facility] Blood Collection / Unknown 01/29/2020 4:38 AM CDT 01/29/2020 5:25 AM CDT us Thom Vickers MD CHEMISTRY ORDERABLES Final Resu lt Performing Organization Address City/State/[facility] Co de Phone Number [facility] [address] [place] [address] documented in this encounter Visit Diagnoses Not on filedocumented in this encounter Additional Health Concerns Infection Onset Date Last Indicated Resolved Time COVID-19 01/16/2020 01/16/2020 02/05/2020 8:09 PM CDT COVID-19 02/07/2020 02/07/2020 03/08/2020 8:0 8 PM CAGE UNLOADER documented as of this encounter Care Teams Vet Tech Relationship Specialty Start Date End Date Doris Morrison, VIJAY [address] [place] [address] PCP - General NURSE PRACTITIONER 01/27/15 documented as of this encounter
--- OUTSIDE RECORDS SUMMARY | 2025-03-13 16:10 | XMS_ITS | Encounter Summary ---
Author Organization [facility] Address [address] [place] [address] Care Team Providers Care Rv Service Technician Name Role Phone Doris Morrison, Thom LINARES Primary Care Pro vider Encounter Details Date Type Department Care Team (Late st Contact Info) Description 01/22/2020 Lab Requisition [facility] Laboratory Services [id number] [place] [phone] Thom Vickers MD [address] [place] [phone] Social History Tobacco Use Types Packs/Day Years Used Date Smoking Tobacco: Never Smokeless Tobacco: Never Alcohol Use Standard Drinks/Week Comments No 0 (1 standard drink = 0.6 oz pur e alcohol) Sex and Gender Information Value Date Recorded Sex Assigned at Not on file 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 Sex Male 4:56 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 Gender Identity Not on file Sexual Orientation [...] - 400.0 ng/mL 01/22/2020 6:29 AM CDT [facility] Blood 01/22/2020 1:50 AM CDT 01/22/2020 5:43 AM CDT Thom Vickers MD CHEMISTRY ORDERABLES Final Resu lt Performing Organization Address [facility] Co de Phone Number [address] [address] * (ABNORMAL) C-REACTIVE PROTEIN (01/22/2020 1:50 AM CDT) CRP 61.4(H) 0.0 - 5.0 mg/L 01/22/2020 6:06 AM CDT [facility] Blood 01/22/2020 1:50 AM CDT 01/22/2020 5:43 AM CDT Thom Vickers MD CHEMISTRY ORDERABLES Final Resu lt Performing Organization Address [facility]/ZIP Co de Phone Number [address] [address] * (ABNORMAL) BRAIN NATRIURETIC PEPTIDE, BNP OR PROBNP (01/22/2020 1:50 AM CDT) PROBNP, N TERMINAL 2,474(H) 0 - 450 pg/mL 01/22/2020 6:06 AM CDT [facility] Blood 01/22/2020 1:50 AM CDT 01/22/2020 5:43 AM CDT us Thom Vickers MD CHEMISTRY ORDERABLES Final Resu lt Performing Organization Address City/State/[facility] Co de Phone Number [facility] [address] [place], [place] [address] documented in this encounter Visit Diagnoses Not on filedocumented in this encounter Additional Health Concerns Infection Onset Date Last Indicated Resolved Time COVID-19 01/16/2020 01/16/2020 02/05/2020 8:09 PM CDT COVID-19 02/07/2020 02/07/2020 03/08/2020 8:08 PM NURSE DISCHARGE PLANNER documented as of this encounter Care Teams Rv Service Technician Relationship Specialty Start Date End Date Doris Morrison, VIJAY [address] [place] [address] PCP - General NURSE PRACTITIONER 01/27/15 documented as of this encounter
--- OUTSIDE RECORDS SUMMARY | 2025-03-13 16:10 | XMS_ITS | Clinical Summary ---
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 Gender Identity Not on file Sexual Orientation [...] 83.5 kg (184 lb) 05/18/2020 11:08 AM LICENSING OFFICER Height 185.4 cm (6' 1 ) 05/18/2020 11:08 AM LICENSING OFFICER Body Mass Index 24.28 05/18/2020 11:08 AM LICENSING OFFICER Plan of Treatment Health Maintenance Due Date Last Done Comments DTAP/TDAP/TD VACCINES (1 - Tdap) 02/03/1959 PNEUMOCOCCAL VACCINE 50+ YEARS (1 of 1 - PCV) 02/03/19 90 03/06/2015 ZOSTER VACCINE (1 of 2) 02/03/1990 RSV VACCINE (60+ or ) (1 - 1-dose 75+ series) 02/03/2015 INFLUENZA VACCINE (#1) 2024 03/06/2015 Insurance MEDICARE PART A AND B [facility] [id number] [place] [id number] MEDICARE PART A AND B [employer] SUPP Advance Directives For more information, please contact: [phone] * Full Code (Latest Code Status on File) Date Activated Date Inactivated Comments 01/15/2020 11:14 PM 01/20/2020 9:09 PM Care Teams Salesperson [employer] Relationship Specialty Start Date End Date Thom George Sr., FNP [address] [place] [address] PCP - General NURSE PRACTITIONER 01/27/15
--- OUTSIDE RECORDS SUMMARY | 2025-03-13 16:10 | XMS_ITS | Encounter Summary ---
Author Organization [facility] Address [address] [place] [address] Care Team Providers Care Chaplaincy Name Role Phone Doris Morrison, Thom LINARES Primary Care Pro vider Encounter Details Date Type Department Care Team (Late st Contact Info) Description 02/07/2020 Lab Requisition [facility] Laboratory Services [address] [place] [phone] Thom Vickers MD [address] [place] [phone] Social History Tobacco Use Types Packs/Day Years Used Date Smoking Tobacco: Never Smokeless Tobacco: Never Alcohol Use Standard Drinks/Week Comments No 0 (1 standard drink = 0.6 oz pur e alcohol) Sex and Gender Information Value Date Recorded Sex Assigned at Not on file 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 Gender Identity Not on file Sexual Orientation [...] - 2.4 mg/dL 02/07/2020 6:55 AM CDT [facility] Blood Collection / Unknown 02/07/2020 2:57 AM CDT 02/07/2020 5:56 AM CDT us Thom Vickers MD CHEMISTRY ORDERABLES Final Resu lt [facility] [address] [place] [address] * (ABNORMAL) COMPREHENSIVE METABOLIC PANEL (02/07/2020 2:57 AM CDT) SODIUM 135(L) 136 - 145 mmol/L 02/07/2020 6:55 AM CDT [facility] POTASSIUM 4.2 3.5 - 5.1 mmol/L 02/07/2020 6:55 AM CDT [facility] CHLORIDE 104 98 - 107 mmol/L 02/07/2020 6:55 AM CDT [facility] [employer] [facility] CO2 22 22 - 29 mmol/L 02/07/2020 6:55 AM CDT [facility] CALCIUM 8.3(L) 8.8 - 10.2 mg/dL 02/07/2020 6:55 AM CDT [facility] BUN 19 8 - 23 mg/dL 02/07/2020 6:55 AM CDT [facility] CREATININE 0.87 0.67 - 1.17 mg/dL 02/07/2020 6:55 AM CDT [facility] [employer] [facility] Comment:The GFR result is no t clinically significant on patients <18 or >70 years of age. GLUCOSE 104(H) 74 - 99 mg/dL 02/07/2020 6:55 AM CDT [facility] [employer] [facility] TOTAL PROTEIN 4.8(L) 6.4 - 8.3 g/dL 02/07/2020 6:55 AM CDT [facility] [employer] [facility] ALBUMIN 2.0(L) 3.5 - 5.2 g/dL 02/07/2020 6:55 AM CDT [facility] BILIRUBIN TOTAL 0.4 0.2 - 1.0 mg/dL 02/07/2020 6:55 AM CDT [facility] ALKALINE PHOSPHATASE 75 40 - 129 U/L 02/07/2020 6:55 AM CDT [facility] AST 34 10 - 50 U/L 02/07/2020 6:55 AM T [facility] ALT 56(H) <=50 U/L 02/07/2020 6:55 AM CDT [facility] GFR >60 mL/min/1.7 3 sq meter 02/07/2020 6:55 AM CDT [facility] Comment: eGFR has not been [...] 3 sq meter 02/07/2020 6:55 AM CDT [facility] ANION GAP 9 9 - 20 mmol/L 02/07/2020 6:55 AM T [facility] Blood Collection / Unknown 02/07/2020 2:57 AM CDT 02/07/2020 5:56 AM CDT us Thom Vickers MD CHEMISTRY ORDERABLES Final Resu lt [facility] [address] [place] [address] * (ABNORMAL) CBC WITHOUT DIFFERENTIAL (02/07/2020 2:57 AM CDT) WBC 7.6 4.8 - 10.8 K/uL 02/07/2020 6:10 AM CDT [facility] RBC 3.80(L) 4.60 - 6.20 M/uL 02/07/2020 6:10 AM CDT [facility] HEMOGLOBIN 11.8(L) 14.0 - 18.0 g/dL 02/07/2020 6:10 AM CDT [facility] HEMATOCRIT 35.8(L) 41.0 - 53.0 % 02/07/2020 6:10 AM CDT [facility] MCV 94.2 84.0 - 103.0 fL 02/07/2020 6:10 AM CDT [facility] MCH 31.1 27.0 - 34.0 pg 02/07/2020 6:10 AM CDT [facility] MCHC 33.0 30.0 - 35.0 g/dL 02/07/2020 6:10 AM CDT [facility] PLATELETS 128(L) 140 - 440 K/uL 02/07/2020 6:10 AM CDT [facility] MPV 10.1 8.9 - 12.8 fL 02/07/2020 6:10 AM T [facility] RDW 13.4 11.0 - 14.5 % 02/07/2020 6:10 AM CDT [facility] RDW-STDEV 45.5 37.0 - 54.0 fL 02/07/2020 6:10 AM T [facility] Blood Collection / Unknown 02/07/2020 2:57 AM CDT 02/07/2020 5:56 AM CDT us Thom Vickers MD HEMATOLOGY ORDERABLES Final Res ult [facility] [address] [place] [address] documented in this encounter Visit Diagnoses Not on filedocumented in this encounter Additional Health Concerns Infection Onset Date Last Indicated Resolved Time COVID-19 02/07/2020 02/07/2020 03/08/2020 8:08 PM APPRENTICE PAINTER BRUSH documented as of this encounter Care Teams Chaplaincy Relationship Specialty Start Date End Date Doris Morrison, VIJAY Brandon [address] [place], [place] [address] PCP - General NURSE PRACTITIONER 01/27/15 documented as of this encounter
--- OUTSIDE RECORDS SUMMARY | 2025-03-13 16:10 | XMS_ITS | Encounter Summary ---
Author Organization [facility] Address [address] [place] [address] Care Team Providers Care Agency Service Representative Name Role Phone VIJAY George Sr., Michael Dave Primary Care Pro vider Reason for Referral * Outpatient Services (Routine) - Closed Specialty Diagnoses / Procedures Referred By Tabitha grubbs Referred To Contact Radiology Diagnoses Testicular abnormality Procedures US TESTES W [employer] Thom George Sr., FNP [address] [place] [address] Phone: tel: fax: [facility] [address] [place] [address] Phone: tel: fax: Referral ID Status Reason Start Date Expiration Date V isits Requested Visits Authorized [id number] Closed MTN View CTS to Schedule (SGF) 09/06/2015 10/06/2016 1 1 Encounter Details Date Type Department Care Team (Latest Contact Info) Description 09/06/2015 Ancillary Orders [facility] Centralized Scheduling [address] [place] [phone] Thom George Sr., FNP [address] [place] [address] Testicular abnormality (Primary Dx) Social History Tobacco Use Types Packs/Day Years Used Date Smoking Tobacco: Never Smokeless Tobacco: Never Alcohol Use Standard Drinks/Week Comments No 0 (1 standard drink = 0.6 oz pur e alcohol) Sex and Gender Information Value Date Recorded Sex Assigned at Not on file 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 2. Otherwise, normal testicular ultrasound. [id number] Narrative 09/11/2015 2:32 PM CDT Exam: US [...] CDT COVID-19 02/07/2020 02/07/2020 03/08/2020 8:08 PM PLANER CHAIN OFFBEARER documented as of this encounter Care Teams Agency Service Representative Relationship Specialty Start Date End Date Doris Morrison, VIJAY [address] [place] [address] PCP - General NURSE PRACTITIONER 01/27/15 documented as of this encounter
--- OUTSIDE RECORDS SUMMARY | 2025-03-13 16:10 | XMS_ITS | Encounter Summary ---
Author Organization [facility] Address [address] [place] [address] Care Team Providers Care Sergeant Of Corrections Name Role Phone VIJAY George Sr., Michael Dave Primary Care Pro vider Encounter Details Date Type Department Care Team (Latest Contact Info) Description 04/19/2003 Outpatient Historical [facility] Family Medicine- [address] [place] [address] Alvaro Cooney, NO ADDRESS ON FILE ACUTE BRONCHITIS (Primary Dx) Social History Tobacco Use Types Packs/Day Years Used Date Smoking Tobacco: Never Assessed Sex and Gender Information Value Date Recorded Sex Assigned at Not on file 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 Sex 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 Gender Identity Not on file Sexual Orientation Not on file documented as of this encounter Plan of Treatment Not on file documented as of this encounter Visit Diagnoses Diagnosis Acute bronchitis- Primary documented in this encounter Additional Health Concerns Infection Onset Date Last Indicated Resolved Time COVID-19 01/16/2020 01/16/2020 02/05/2020 8:09 PM CDT COVID-19 02/07/2020 02/07/2020 03/08/2020 8:08 PM AX SURVEY WORKER documented as of this encounter Care Teams Sergeant Of Corrections Relationship Specialty Start Date End Date Thom George Sr., FNP [address] [place] [address] PCP - General NURSE PRACTITIONER 01/27/15 documented as of this encounter
--- OUTSIDE RECORDS SUMMARY | 2025-03-13 16:10 | XMS_ITS | Encounter Summary ---
Author Organization [facility] Address [address] [place] [address] Care Team Providers Care Supervisor Sample Preparation Name Role Phone Doris Morrison, Thom LINARES Primary Care Pro vider Encounter Details Date Type Department Care Team (Late st Contact Info) Description 01/31/2020 Lab Requisition [facility] Laboratory Services [address] [place] [phone] Thom Vickers MD [address] [place] [phone] Social History Tobacco Use Types Packs/Day Years Used Date Smoking Tobacco: Never Smokeless Tobacco: Never Alcohol Use Standard Drinks/Week Comments No 0 (1 standard drink = 0.6 oz pur e alcohol) Sex and Gender Information Value Date Recorded Sex Assigned at Not on file 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 [employer] [facility] Blood Collection / Unknown 01/31/2020 3:29 AM CDT 01/31/2020 6:38 AM CDT Thom Vickers MD CHEMISTRY ORDERABLES Final Resu lt [facility] [address] [place] [address] * (ABNORMAL) COMPREHENSIVE METABOLIC PANEL (01/31/2020 3:29 AM CDT) Pathologist [facility] SODIUM 130(L) 136 - 145 mmol/L 01/31/2020 6:[address] [facility] [employer] [facility] POTASSIUM 4.2 3.5 - 5.1 mmol/L 01/31/2020 6:[address] [facility] [employer] [facility] CHLORIDE 100 98 - 107 mmol/L 01/31/2020 6:[address] [facility] [employer] [facility] CO2 21(L) 22 - 29 mmol/L 01/31/2020 6:[address] [facility] [employer] [facility] CALCIUM 7.9(L) 8.8 - 10.2 mg/dL 01/31/2020 6:[address] [facility] [employer] [facility] BUN 28(H) 8 - 23 mg/dL 01/31/2020 6:[address] [facility] [employer] [facility] CREATININE 0.79 0.67 - 1.17 mg/dL 01/31/2020 6:[address] [facility] [employer] [facility] Comment:The GFR result is no t clinically significant on patients <18 or >70 years of age. GLUCOSE 96 74 - 99 mg/dL 01/31/2020 6:59 AM CDT [facility] TOTAL PROTEIN 4.8(L) 6.4 - 8.3 g/dL 01/31/2020 6:59 AM [facility] ALBUMIN 2.2(L) 3.5 - 5.2 g/dL 01/31/2020 6:59 AM [facility] BILIRUBIN TOTAL 0.6 0.2 - 1.0 mg/dL 01/31/2020 6:59 AM [facility] ALKALINE PHOSPHATASE 75 40 - 129 U/L 01/31/2020 6:59 AM T [facility] AST 41 10 - 50 U/L 01/31/2020 6:59 AM [facility] ALT 65(H) <=50 U/L 01/31/2020 6:59 AM T [facility] GFR >60 mL/min/1.7 3 sq meter 01/31/2020 6:59 AM [facility] Comment: eGFR has not been validated for [...] 3 sq meter 01/31/2020 6:59 AM T [facility] ANION GAP 9 9 - 20 mmol/L 01/31/2020 6:59 AM T [facility] Blood Collection / Unknown 01/31/2020 3:29 AM CDT 01/31/2020 6:38 AM CDT us Thom Vickers MD CHEMISTRY ORDERABLES Final Resu lt [facility] [address], [place] [id number] * (ABNORMAL) CBC WITHOUT DIFFERENTIAL (01/31/2020 3:29 AM CDT) Pathologist [facility] WBC 9.7 4.8 - 10.8 K/uL 01/31/2020 6:47 AM CDT [facility] RBC 4.14(L) 4.60 - 6.20 M/uL 01/31/2020 6:47 AM CDT [facility] HEMOGLOBIN 12.7(L) 14.0 - 18.0 g/dL 01/31/2020 6:47 AM CDT [facility] HEMATOCRIT 38.6(L) 41.0 - 53.0 % 01/31/2020 6:47 AM CDT [facility] MCV 93.2 84.0 - 103.0 fL 01/31/2020 6:47 AM CDT [facility] MCH 30.7 27.0 - 34.0 pg 01/31/2020 6:47 AM CDT [facility] MCHC 32.9 30.0 - 35.0 g/dL 01/31/2020 6:47 AM CDT [facility] PLATELETS 187 140 - 440 K/uL 01/31/2020 6:47 AM CDT [facility] MPV 10.5 8.9 - 12.8 fL 01/31/2020 6:47 AM CDT [facility] RDW 12.6 11.0 - 14.5 % 01/31/2020 6:47 AM CDT [facility] RDW-STDEV 43.3 37.0 - 54.0 fL 01/31/2020 6:47 AM CDT [facility] Blood Collection / Unknown 01/31/2020 3:29 AM CDT 01/31/2020 6:38 AM CDT us Thom Vickers MD HEMATOLOGY ORDERABLES Final Res ult [facility] [address] [place] [address] documented in this encounter Visit Diagnoses Not on filedocumented in this encounter Additional Health Concerns Infection Onset Date Last Indicated Resolved Time COVID-19 01/16/2020 01/16/2020 02/05/2020 8:09 PM CDT COVID-19 02/07/2020 02/07/2020 03/08/2020 8:08 PM SPLITTER MACHINE documented as of this encounter Care Teams Supervisor Sample Preparation Relationship Specialty Start Date End Date Doris Morrison, VIJAY [address] [place] [address] PCP - General NURSE PRACTITIONER 01/27/15 documented as of this encounter
--- OUTSIDE RECORDS SUMMARY | 2025-03-13 16:10 | XMS_ITS | Encounter Summary ---
Author Organization [facility] Address [address] [place] [address] Care Team Providers Care Enterprise Sales Executive Name Role Phone Doris Morrison, Thom LINARES Primary Care Pro vider Encounter Details Date Type Department Care Team (Late st Contact Info) Description 01/28/2020 Lab Requisition [facility] Laboratory Services [id number] [place] [phone] Thom Vickers MD [address] [place] [phone] Social History Tobacco Use Types Packs/Day Years Used Date Smoking Tobacco: Never Smokeless Tobacco: Never Alcohol Use Standard Drinks/Week Comments No 0 (1 standard drink = 0.6 oz pur e alcohol) Sex and Gender Information Value Date Recorded Sex Assigned at Not on file 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 Gender Identity Not on file Sexual Orientation [...] (ABNORMAL) BASIC METABOLIC PANEL (01/28/2020 4:18 AM [facility]) SODIUM 126(L) 136 - 145 mmol/L 01/28/2020 6:05 AM [facility] POTASSIUM 4.2 3.5 - 5.1 mmol/L 01/28/2020 6:05 AM [facility] CHLORIDE 96(L) 98 - 107 mmol/L 01/28/2020 6:05 AM [facility] CO2 21(L) 22 - 29 mmol/L 01/28/2020 6:05 AM [facility] CALCIUM 7.9(L) 8.8 - 10.2 mg/dL 01/28/2020 6:05 AM [facility] BUN 38(H) 8 - 23 mg/dL 01/28/2020 6:05 AM [facility] CREATININE 0.89 0.67 - 1.17 mg/dL 01/28/2020 6:05 AM [facility] Comment:The GFR result is no t clinically significant on patients <18 or >70 years of age. GLUCOSE 96 74 - 99 mg/dL 01/28/2020 6:05 AM [facility] GFR >60 mL/min/1.7 3 sq meter 01/28/2020 6:05 AM [facility] Comment: eGFR has not been validated [...] mL/min/1.7 3 sq meter 01/28/2020 6:05 AM [facility] ANION GAP 9 9 - 20 mmol/L 01/28/2020 6:05 AM [facility] Blood Collection / Unknown 01/28/2020 4:18 AM CDT 01/28/2020 5:46 AM CDT us Thom Vickers MD CHEMISTRY ORDERABLES Final Resu lt Performing Organization Address City/State/[facility] Co de Phone Number [facility] [address] [address] documented in this encounter Visit Diagnoses Not on filedocumented in this encounter Additional Health Concerns Infection Onset Date Last Indicated Resolved Time COVID-19 01/16/2020 01/16/2020 02/05/2020 8:09 PM CDT COVID-19 02/07/2020 02/07/2020 03/08/2020 8:08 PM SAMPLE PULLER documented as of this encounter Care Teams Enterprise Sales Executive Relationship Specialty Start Date End Date Doris Morrison, VIJAY [address] [place] [address] PCP - General NURSE PRACTITIONER 01/27/15 documented as of this encounter
--- OUTSIDE RECORDS SUMMARY | 2025-03-13 16:10 | XMS_ITS | Encounter Summary ---
Author Organization [employer] Address [address] [place] [address] Care Team Providers Care Pe Manager Name Role Phone Doris Morrison, Thom LINARES Primary Care Pro vider Encounter Details Date Type Department Care Team (Late st Contact Info) Description 08/08/2011 Ancillary Orders [facility] [address] [place] [phone] Thom George Sr., FNP [address] [place] [address] Wheezing Social History Tobacco Use Types Packs/Day Years Used Date Smoking Tobacco: Never Assessed Sex and Gender Information Value Date Recorded Sex Assigned at Not on file 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 jermaine - transcribed in [facility] - Thom George Sr., VIJAY DIAGNOSTIC IMAGIN G ORDERABLES Final Result documented in this encounter Visit Diagnoses Diagnosis Wheezing Wheezing documented in this encounter Additional Health Concerns Infection Onset Date Last Indicated Resolved Time COVID-19 01/16/2020 01/16/2020 02/05/2020 8:09 PM CDT COVID-19 02/07/2020 02/07/2020 03/08/2020 8:08 PM JEWELRY COATER documented as of this encounter Care Teams Pe Manager Relationship Specialty Start Date End Date Doris Morrison, VIJAY [address] [place] [address] PCP - General NURSE PRACTITIONER 01/27/15 documented as of this encounter
--- OUTSIDE RECORDS SUMMARY | 2025-03-13 16:10 | XMS_ITS | Clinical Summary ---
Author Organization [facility] Address [address] [place] [address] Phone Care Team Providers Care Concaving Machine Operator Name Role Phone Doris Morrison, VIJAY, Thom Bhatt Primary Care Pro vider Allergies No known active allergies Medications timoloL maleate (TIMOPTIC) 0.5% solution Administer 1 Drop in left eye 2 times daily. 15 mL 6 2 Active latanoprost (XALATAN) 0.005 % solution Administer 1 Drop in both eyes daily at bedtime. 7.5 mL 5 2 Active tamsulosin (FLOMAX) 0.4 mg capsule Take 0.4 mg by mouth daily. 5 Active finasteride (PROSCAR) 5 mg tablet TAKE 1 TABLET BY MOUTH ONCE DAILY 3 9 Active prednisoLONE acetate (PRED FORTE) 1 % suspension Administer 1 Drop in right eye every 1 hour. 15 mL 1 4 Active tadalafil (CIALIS) 5 mg tablet 1 tablet Orally Once a day for 90 days 5 026 Active dorzolamide (TRUSOPT) 2 % solution 1 drop into affected eye Ophthalmic Three times a day Active latanoprost, PF, 0.005 % Drops 1 drop into affected eye in the evening Ophthalmic Once a day Active dorzolamide-ti moloL (COSOPT) 22.3-6.8 mg/mL solution INSTILL 1 DROP INTO LEFT EYE TWICE DAILY 10 mL 5 Active multivitamin (DAILY-BORIS) tablet Take 1 Tablet by mouth daily. Active neomycin-polym yxin-dexAMETHa sone (Maxitrol) 3.5mg/mL-10,00 0 unit/mL-0.1 % suspension Administer 1 Drop in right eye see administration instructions. QID x 7 days, TID x 7 days, BID x 7 days, q-day x 7 days, stop 5 mL 5 Active tamsulosin (FLOMAX) 0.4 mg capsule 2 capsules Orally Once a day at bedtime Active Hospital, Clinic, or Other Facility Administered Medication Ordered Dose Route Frequency Start Date End Date Status lidocaine (PF) (AKTEN PF) 3.5 % ophthalmic gel 2 DropIndications: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 (CMS/HCC) 2 Drop INTRA-PROCEDURE ONCE PRN 02/24/2025 5 Ended povidone-iodine in balanced salt solution 0.25% eye drop 5 DropIndications: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 (CMS/HCC) 5 Drop INTRA-PROCEDURE ONCE PRN 02/24/2025 5 Ended proparacaine (OPTHAINE) 0.5 % ophthalmic solution 5 DropIndications: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 (CMS/HCC) 5 Drop INTRA-PROCEDURE ONCE PRN 02/24/2025 5 Ended tetracaine (AK-T-UYEN) 0.5 % ophthalmic solution 5 DropIndications: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 (CMS/HCC) 5 Drop INTRA-PROCEDURE ONCE PRN 02/24/2025 5 Ended phenylephrine 2.5 % ophthalmic solution 1 DropIndications: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 (CMS/HCC) 1 Drop INTRA-PROCEDURE ONCE PRN 02/24/2025 5 Ended proparacaine (OPTHAINE) 0.5 % ophthalmic solution 1 DropIndications: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 (CMS/HCC) 1 Drop INTRA-PROCEDURE ONCE PRN 02/24/2025 5 Ended tropicamide (MYDRIACYL) 1 % ophthalmic solution 1 DropIndications: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 (CMS/HCC) 1 Drop INTRA-PROCEDURE ONCE PRN 02/24/2025 5 Ended Active Problems Problem Noted Date Diagnosed Date Exudative age-related macula r degeneration of both eyes with active choroidal neovascularization 07/08/2022 Dry eyes due to decreased tear production 2022 Protein-calorie malnutrition, moderate 0 DESTINY (acute kidney injury) 01/16/2020 Acute hypoxemic respiratory failure due to COVID -19 01/16/2020 Paroxysmal atrial fibrillati on with rapid ventricular response 01/16/2020 Severe sepsis with septic shock 01/16/2020 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 01/16/2020 Vitreoretinal degeneration of both eyes 06/28/19 20 Ocular hypertension, bilateral 06/28/2019 Exudative age-related macula r degeneration of left eye with active choroidal neovascularization 02/09/2019 Nonexudative age-related mac ular degeneration, right eye, advanced atrophic without subfoveal involvement 02/09/2019 Encounters Date Type Department Care Team Description 02/24/2025 11:10 AM SEMICONDUCTOR PROCESSING TECHNICIAN Office Visit [facility] [place] [address] [phone] Piotr Aguilar MD Exudative 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 (CMS/HCC) (Primary Dx) 01/27/2025 8:30 AM CDT Office Visit [facility] [place] [address] [phone] Piotr Aguilar MD Retinal detachment, right (Primary Dx) 01/26/2025 1:59 PM CDT Anesthesia Event [facility] [address] [place] [address] Emiliano Fitch MD 01/26/2025 1:45 PM CDT - 01/26/2025 2:34 PM CDT Surgery [facility] [address] [place] [phone] Piotr Aguilar MD EYE PARS PLANA VITRECTOMY 01/26/2025 9:51 AM CDT - 01/26/2025 3:07 PM CDT Hospital Encounter [facility] [address] [place] [phone] Piotr Aguilar MD Discharge Disposition: Home or Self Care 01/17/2025 Travel 01/12/2025 Refill [facility] [address] [place] [phone] Joe Smallwood MD 01/04/2025 External Device Data STL ABSTRACTION Provider, Abstract 12/30/2024 10:00 AM CDT Office Visit [facility] [place] [address] [phone] Piotr Aguilar MD Exudative age-related macular degeneration of both eyes with active choroidal neovascularization (CMS/HCC) (Primary Dx); Pseudophakia of both eyes; Primary open angle glaucoma (POAG) of both eyes, indeterminate stage; Vitreous degeneration, left; Dry eyes due to decreased tear production; Epiretinal membrane, right; Retinal detachment, right 12/30/2024 Telephone [facility] [place] [address] [phone] Piotr Aguilar MD Surgery Talk (Called patient and reviewed the voicemail instructions, informing him that a letter containing the same information was sent. Advised patient to call back with any questions.) 12/30/2024 Orders Only [facility] [place] [address] [phone] Piotr Aguilar MD 12/21/2024 External Device Data STL ABSTRACTION Provider, Abstract from Last 3 Months Immunizations Immunization Administration Dates Next Due Influenza [...] Packs/Day Years Used Date Smoking Tobacco: Never Passive Smoke Exposure: Never Smokeless Tobacco: Never Tobacco Cessation:Counseling Given: No Alcohol Use Standard Drinks/Week Comments No 0 (1 standard drink = 0.6 oz pur e alcohol) Feeling Safe Answer Date Recorded Are you in a relationship wi th someone who hurts you emotionally and/or physically? No 01/26/2025 Sex and Gender Information Value Date Recorded Sex Assigned at Not on file Legal Sex Male 3:12 PM SEMICONDUCTOR PROCESSING TECHNICIAN Gender Identity Not on file Sexual Orientation Not on file Last Filed Vital Signs Vital Sign Reading Time Taken Comments Blood Pressure 179/85 01/26/2025 2:44 PM CDT Pulse 58 01/26/2025 2:44 PM CDT Temperature 36.6 C (97.8 F) 01/26/2025 2:44 PM CDT Respiratory Rate 16 07/28/2024 12:27 PM CDT Oxygen Saturation 98% 01/26/2025 2:44 PM CDT Inhaled Oxygen Concentration - - Weight 81.6 kg (180 lb) 01/26/2025 11:59 AM CDT Height 182.9 cm (6') 01/26/2025 11:59 AM CDT Body Mass Index 24.41 01/26/2025 11:59 AM CDT Plan of Treatment Upcoming Encounters Date Type Department Care Team (Late st Contact Info) Description 04/07/2025 10:30 AM SEMICONDUCTOR PROCESSING TECHNICIAN Office Visit [facility] [place] [address] [phone] Piotr Aguilar MD [address] [place] [address] Health Maintenance Due Date Last Done Comments DTAP/TDAP/TD VACCINES (1 - Tdap) 02/03/1959 PNEUMOCOCCAL VACCINE 50+ YEA RS (1 of 1 - PCV) 02/03/1990 03/06/2015 ZOSTER VACCINE (1 of 2) 02/03/1990 RSV VACCINE (60+ or ) (1 - 1-dose 75+ series) 02/03/2015 Medicare Advantage ([place]) Prev entative Visit/Annual Wellness Visit 04/21/2024 INFLUENZA VACCINE (#1) 2024 03/06/2015 COVID-19 Vaccine ( season) 2024, 07/18/2020 Medical Devices Explanted Type Area Transfer Engineer Device Identifier Shelf Expiration Date Model / Serial / Lot Oil Slc 8.5ml [id number] - [id number] Implanted:Qty: 1 on 11/05/2023 by Piotr Aguilar MD at [facility] Explanted:Qty: 1 on 12/10/2023 by Piotr Aguilar MD at [facility] Eye Right: Eye [employer] 06/18/2026 [id number] / [id number] / [id number] Oil Slc 8.5ml [id number] - [id number] Implanted:Qty: 1 on 12/10/2023 by Piotr Aguilar MD at [facility] Explanted:Qty: 1 on 05/12/2024 by Piotr Aguilar MD at [facility] Eye Right: Eye [employer] 08/18/2026 [id number] / / 128KN Oil Slc 8.5ml [id number] - [id number] Implanted:Qty: 1 on 07/28/2024 by Piotr Aguilar MD at [facility] Explanted:Qty: 1 on 01/26/2025 at [facility] Eye Right: Eye [employer]IN [id number] 11/18/2026 [id number] / / [id number] Procedures Procedure Name Priority Date/Time Associated Diagnosis Comments EYE DROPS Routine 02/24/2025 12:52 PM SEMICONDUCTOR PROCESSING TECHNICIAN Exudative 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 (CMS/HCC) EYE DROPS Routine 02/24/2025 12:52 PM SEMICONDUCTOR PROCESSING TECHNICIAN Exudative 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 (CMS/HCC) OCT, RETINA - OU - BOTH EYES Routine 02/24/2025 12:30 PM SEMICONDUCTOR PROCESSING TECHNICIAN Exudative 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 (CMS/HCC) EYE DROPS Routine 01/27/2025 9:31 AM CDT Retinal detachment, right OR INJ SUBSTITUTE PARS PLANA/LIMBL W/WO ASPIR SPX 01/26/2025 1:45 PM CDT H35.3231 H35.371 H33.21 OR ASPIRATION/RELEASE VITREOUS SUBRETINAL/CHOROIDAL 01/26/2025 1:45 PM CDT H35.3231 H35.371 H33.21 OR VITRECTOMY MECHANICAL PARS PLANA 01/26/2025 1:45 PM CDT H35.3231 H35.371 H33.21 INTRAVITREAL INJECTION, PHARMACOLOGIC AGENT - OS - LEFT EYE Routine 12/30/2024 10:54 AM CDT Exudative age-related macular degeneration of both eyes with active choroidal neovascularization (CMS/HCC) OCT, RETINA - OU - BOTH EYES Routine 12/30/2024 10:43 AM CDT Exudative age-related macular degeneration of both eyes with active choroidal neovascularization (CMS/HCC) EYE DROPS Routine 12/30/2024 10:21 AM CDT Exudative age-related macular degeneration of both eyes with active choroidal neovascularization (CMS/HCC) from Last 3 Months Results * EYE DROPS (02/24/2025 12:52 PM SEMICONDUCTOR PROCESSING TECHNICIAN) Narrative [facility] - 02/24/2025 12:52 PM SEMICONDUCTOR PROCESSING TECHNICIAN Medications Eye Drops: 1 Drop phenylephrine 2.5 % Route: Topical NDC: 40380-447-52, Lot: [id number], Expiration date: 05/22/2026 1 Drop proparacaine 0.5 % Route: Topical NDC: 00770-133-10, Lot: [id number], Expiration date: 04/21/2026 1 Drop tropicamide 1 % Route: Topical NDC: 73259-922-26, Lot: [id number], Expiration date: 08/19/2025 Notes Eye drop orders per protocol for Basic Forestry Aid Technician Eye Exam (Dilated) 1 Drop proparacaine (OPHTHAINE) 0.5% ophthalmic solution prior to tonometry 1 Drop tropicamide (MYDRIACYL) 1% ophthalmic solution 1 Drop phenylephrine (AK-DILATE, MYDFRIN) 2.5% ophthalmic solution Piotr Aguilar MD [facility] PROCEDURES Fin al Result Performing Organization Address City/[facility]/ZIP Co de Phone Number [facility]# [id number] [address] [address] * EYE DROPS (02/24/2025 12:52 PM SEMICONDUCTOR PROCESSING TECHNICIAN) Narrative [facility] - 02/24/2025 12:52 PM SEMICONDUCTOR PROCESSING TECHNICIAN Medications Eye Drops: 2 Drop lidocaine (PF) 3.5 % Route: Topical, Site: Eye, Left [facility]: 21262-928-89, Lot: [id number], Expiration date: 11/19/2026 5 Drop povidone-iodine in balanced salt solution 0.25% Route: Topical, Site: Eye, Left [place]: [id number], Lot: [id number] Drop proparacaine 0.5 % Route: Topical, Site: Eye, Left ND: 23398-164-98, Lot: [id number], Expiration date: 09/18/2026 5 Drop tetracaine 0.5 % Route: Topical, Site: Eye, Left [facility]: 49801-206-23, Lot: [id number], Expiration date: 01/18/2026 Notes Eye drop orders per protocol for Intravitreal Injection Administer the following medications approximately 1 minute apart into the procedural/operative/affected eye 5 drops proparacaine (OPHTHAINE) 0.5% ophthalmic solution 5 drops of tetracaine (PF) 0.5% ophthalmic solution 5 drop of betadine mixture Piotr Aguilar MD [facility] PROCEDURES Fin al Result [facility]# [id number] [address] [address] * OCT, RETINA - OU - BOTH EYES (02/24/2025 12:30 PM SEMICONDUCTOR PROCESSING TECHNICIAN) Narrative [facility] OPHTHALMOLOGY ORDERS - 02/24/2025 12:53 PM SEMICONDUCTOR PROCESSING TECHNICIAN Right Eye Quality was poor. Left Eye Quality was good. Notes Optical Coherence Tomography ordered to evaluate the status of the macula: Right Eye: Epiretinal membrane gone, mild thinning, inactive choroidal neovascularization, stable contour Left Eye: choroidal neovascular membrane, mild improved subretinal fluid. Stable drusen Piotr Aguilar MD OPHTH TOMOGRAPHY Final Resu lt Performing Organization Address [facility]/ZIP Co de Phone Number [facility] OPHTHALMOLOGY ORDERS * EYE DROPS (01/27/2025 9:31 AM CDT) Narrative [facility] - 01/27/2025 9:31 AM CDT Medications Eye Drops: 1 Drop phenylephrine 2.5 % Route: Topical ND: 87787-389-63, Lot: [id number], Expiration date: 05/21/2026 1 Drop proparacaine 0.5 % Route: Topical ND: 39726-148-07, Lot: [id number], Expiration date: 06/18/2026 1 Drop tropicamide 1 % Route: Topical NDC: 7391-9727-88, Lot: [id number], Expiration date: 09/19/2025 Notes Eye drop orders per protocol for Basic Forestry Aid Technician Eye Exam (Dilated) 1 Drop proparacaine (OPHTHAINE) 0.5% ophthalmic solution prior to tonometry 1 Drop tropicamide (MYDRIACYL) 1% ophthalmic solution 1 Drop phenylephrine (AK-DILATE, MYDFRIN) 2.5% ophthalmic solution Piotr Aguilar MD OPHTH CLINIC PROCEDURES Fin al Result Performing Organization Address [facility]/ZIP Co de Phone Number [facility] CLIA# [id number] [address] [place] [address] * INTRAVITREAL INJECTION, PHARMACOLOGIC AGENT - OS - LEFT EYE (12/30/2024 10:54 AM CDT) Narrative [facility] - 12/30/2024 10:54 AM CDT Time Out Confirmed correct patient, procedure, site, and patient consented. Anesthesia Topical anesthesia was used. Anesthetic medications included Proparacaine 0.5%, Tetravisc 0.5%. Procedure Injection: 1.25 mg bevacizumab 2.25 mg/0.09 mL Route: Intravitreal, Site: Eye, Left ND: 13453-295-59, Lot: [id number], Expiration date: 12/30/2024 Post-op Post injection exam found visual acuity of at least counting fingers. The patient tolerated the procedure well. There were no complications. The patient received written and verbal post procedure care education. Notes Lot number on consent Piotr Aguilar MD OPHTH CLINIC PROCEDURES Fin al Result Performing Organization Address [facility] Co de Phone Number [facility] CLIA# [id number] [address] [place] [address] * OCT, RETINA - OU - BOTH EYES (12/30/2024 10:43 AM CDT) Narrative [facility] OPHTHALMOLOGY ORDERS - 12/30/2024 10:54 AM CDT Right Eye Quality was poor. Left Eye Quality was good. Notes Optical Coherence Tomography ordered to evaluate the status of the macula: Right Eye: Epiretinal membrane gone, mild thinning, inactive choroidal neovascularization, stable contour Left Eye: choroidal neovascular membrane, mild progressed subretinal fluid. Stable drusen Piotr Aguilar MD OPHTH TOMOGRAPHY Final Resu lt Performing Organization Address [facility] Co de Phone Number [facility] OPHTHALMOLOGY ORDERS * EYE DROPS (12/30/2024 10:21 AM CDT) Narrative [facility] - 12/30/2024 10:54 AM CDT Medications Eye Drops: 1 Drop phenylephrine 2.5 % Route: Topical ND: 97488-389-41, Lot: [id number], Expiration date: 04/21/2026 1 Drop povidone-iodine in balanced salt solution 0.25% Route: Topical NDC: 9788-2550-69-18-001, Lot: [id number] 1 Drop proparacaine 0.5 % Route: Topical NDC: 71945-196-76, Lot: [id number], Expiration date: 05/22/2026 2 Drop tetracaine 0.5 % Route: Topical NDC: 33980-993-19, Lot: [id number], Expiration date: 12/20/2025 1 Drop tropicamide 1 % Route: Topical NDC: 35329-951-76, Lot: [id number], Expiration date: 07/20/2026 Notes Eye drop orders per protocol for Basic Forestry Aid Technician Eye Exam (Dilated) 1 Drop proparacaine (OPHTHAINE) 0.5% ophthalmic solution prior to tonometry 1 Drop tropicamide (MYDRIACYL) 1% ophthalmic solution 1 Drop phenylephrine (AK-DILATE, MYDFRIN) 2.5% ophthalmic solution Piotr Aguilar MD OPHTH CLINIC PROCEDURES Fin al Result [facility] [id number] [address] [place] [address] from Last 3 Months Insurance MEDICARE HMO Advance Directives For more information, please contact: [phone] * Full Code (Latest Code Status on File) Date Activated Date Inactivated Comments 01/26/2025 11:51 AM 01/26/2025 5:19 PM * Full Code Date Activated Date Inactivated Comments 07/28/2024 8:52 AM 07/28/2024 2:56 PM * Full Code Date Activated Date Inactivated Comments 05/12/2024 6:51 AM 05/12/2024 11:19 AM Care Teams Concaving Machine Operator Relationship Specialty Start Date End Date Doris Morrison, VIJAY [address] [place] [address] PCP - General 07/08/20
--- OUTSIDE RECORDS SUMMARY | 2025-03-13 16:10 | XMS_ITS | Encounter Summary ---
Author Organization [facility] Address [address] [place] [address] Care Team Providers Care Welding Machine Assembler Name Role Phone Doris Morrison, Thom LINARES Primary Care Pro vider Encounter Details Date Type Department Care Team (Late st Contact Info) Description 01/27/2020 Lab Requisition [facility] Laboratory Services [address] [place] [phone] Thom Vickers MD [address] [place] [phone] Social History Tobacco Use Types Packs/Day Years Used Date Smoking Tobacco: Never Smokeless Tobacco: Never Alcohol Use Standard Drinks/Week Comments No 0 (1 standard drink = 0.6 oz pur e alcohol) Sex and Gender Information Value Date Recorded Sex Assigned at Not on file Legal Sex Male 4:56 AM LICENSED TAX CONSULTANT Gender Identity Not on file Sexual Orientation [...] - 2.4 mg/dL 01/27/2020 6:31 AM CDT [facility] [employer] [facility] Blood Collection / Unknown 01/27/2020 4:35 AM CDT 01/27/2020 5:46 AM CDT Thom Vickers MD CHEMISTRY ORDERABLES Final Resu lt [facility] [address] [place] [address] * (ABNORMAL) COMPREHENSIVE METABOLIC PANEL (01/27/2020 4:35 AM CDT) Pathologist [facility] SODIUM 128(L) 136 - 145 mmol/L 01/27/2020 6:31 AM CDT [facility] [employer] [facility] POTASSIUM 4.0 3.5 - 5.1 mmol/L 01/27/2020 6:31 AM CDT [facility] [employer] [facility] CHLORIDE 96(L) 98 - 107 mmol/L 01/27/2020 6:31 AM CDT [facility] [employer] [facility] CO2 22 22 - 29 mmol/L 01/27/2020 6:31 AM CDT [facility] [employer] [facility] CALCIUM 8.0(L) 8.8 - 10.2 mg/dL 01/27/2020 6:31 AM CDT [facility] [employer] [facility] BUN 46(H) 8 - 23 mg/dL 01/27/2020 6:31 AM CDT [facility] [employer] [facility] CREATININE 0.98 0.67 - 1.17 mg/dL 01/27/2020 6:31 AM CDT [facility] [employer] [facility] Comment:The GFR result is no t clinically significant on patients <18 or >70 years of age. GLUCOSE 95 74 - 99 mg/dL 01/27/2020 6:31 AM [facility] TOTAL PROTEIN 5.4(L) 6.4 - 8.3 g/dL 01/27/2020 6:31 AM [facility] ALBUMIN 2.5(L) 3.5 - 5.2 g/dL 01/27/2020 6:31 AM [facility] BILIRUBIN TOTAL 1.0 0.2 - 1.0 mg/dL 01/27/2020 6:31 AM [facility] ALKALINE PHOSPHATASE 75 40 - 129 U/L 01/27/2020 6:31 AM [facility] AST 32 10 - 50 U/L 01/27/2020 6:31 AM [facility] ALT 60(H) <=50 U/L 01/27/2020 6:31 AM [facility] GFR >60 mL/min/1.7 3 sq meter 01/27/2020 6:31 AM [facility] Comment: [...] 3 sq meter 01/27/2020 6:31 AM T [facility] ANION GAP 10 9 - 20 mmol/L 01/27/2020 6:31 AM [facility] Blood Collection / Unknown 01/27/2020 4:35 AM CDT 01/27/2020 5:46 AM CDT us Thom Vickers MD CHEMISTRY ORDERABLES Final Resu lt [facility] [address] [place] [place], [place] [id number] * (ABNORMAL) CBC WITHOUT DIFFERENTIAL (01/27/2020 4:35 AM CDT) WBC 13.7(H) 4.8 - 10.8 K/uL 01/27/2020 6:02 AM CDT [facility] RBC 5.13 4.60 - 6.20 M/uL 01/27/2020 6:02 AM CDT [facility] HEMOGLOBIN 15.8 14.0 - 18.0 g/dL 01/27/2020 6:02 AM CDT [facility] HEMATOCRIT 47.1 41.0 - 53.0 % 01/27/2020 6:02 AM CDT [facility] MCV 91.8 84.0 - 103.0 fL 01/27/2020 6:02 AM CDT [facility] MCH 30.8 27.0 - 34.0 pg 01/27/2020 6:02 AM CDT [facility] MCHC 33.5 30.0 - 35.0 g/dL 01/27/2020 6:02 AM CDT [facility] PLATELETS 333 140 - 440 K/uL 01/27/2020 6:02 AM CDT [facility] MPV 9.7 8.9 - 12.8 fL 01/27/2020 6:02 AM CDT [facility] RDW 12.4 11.0 - 14.5 % 01/27/2020 6:02 AM T [facility] RDW-STDEV 41.8 37.0 - 54.0 fL 01/27/2020 6:02 AM T [facility] Blood Collection / Unknown 01/27/2020 4:35 AM CDT 01/27/2020 5:46 AM CDT Thom Vickers MD HEMATOLOGY ORDERABLES Final Res ult [facility] [address] [place] [address] documented in this encounter Visit Diagnoses Not on filedocumented in this encounter Additional Health Concerns Infection Onset Date Last Indicated Resolved Time COVID-19 01/16/2020 01/16/2020 02/05/2020 8:09 PM CDT COVID-19 02/07/2020 02/07/2020 03/08/2020 8:08 PM LICENSED TAX CONSULTANT documented as of this encounter Care Teams Welding Machine Assembler Relationship Specialty Start Date End Date Doris Morrison, VIJAY [address] [place] [address] PCP - General NURSE PRACTITIONER 01/27/15 documented as of this encounter
--- OUTSIDE RECORDS SUMMARY | 2025-03-13 16:10 | XMS_ITS | Encounter Summary ---
Author Organization [facility] Address [address] [place] [address] Care Team Providers Care Mail Courier Name Role Phone VIJAY George Sr., Michael Dave Primary Care Pro vider Reason for Referral * Outpatient Services (Routine) - Closed Specialty Diagnoses / Procedures Referred By Tabitha grubbs Referred To Contact Radiology Diagnoses Testicular abnormality Procedures US TESTES W SCROTAL DOPPLER [employer]TD Thom George Sr., FNP [address] [place] [address] Phone: tel: fax: [facility] [address] [place] [address] Phone: tel: fax: Referral ID Status Reason Start Date Expiration Date V isits Requested Visits Authorized [id number] Closed MTN View CTS to Schedule (SGF) 05/22/2015 06/21/2016 1 1 H MAN Encounter Details Date Type Department Care Team (Latest Contact Info) Description 05/22/[address] [facility] Centralized Scheduling [address] [place] [phone] Thom George Sr., FNP [address] [place] [address] Testicular abnormality (Primary Dx) Social History Tobacco Use Types Packs/Day Years Used Date Smoking Tobacco: Never Smokeless Tobacco: Never Alcohol Use Standard Drinks/Week Comments No 0 (1 standard drink = 0.6 oz pur e alcohol) Sex and Gender Information Value Date Recorded Sex Assigned at Not on file Legal Sex Male 4:56 AM TRASH MAN Gender Identity Not on file Sexual Orientation Not on file documented as of this encounter Plan of Treatment Not on file documented as of this encounter Results * US TESTES W SCROTAL DOPPLER LTD (05/22/2015 11:39 AM TRASH MAN) Anatomical Region Laterality Modality Pelvis Ultrasound 05/22/2015 11:1 8 AM TRASH MAN Impressions 05/22/2015 3:45 PM TRASH MAN Impression: 1. Large bilateral hydroceles. 2. Normal flow to both the right and left testicle. 3. Both testicles appear to be heterogeneous in appearance without discrete soft tissue masses. Left testicle is slightly more heterogeneous than the right and followup evaluation in three months is recommended. Yield is probably low. ernesto maylin - uploaded from [employer] 05/22/2015 3:45 PM TRASH MAN Exam: US TESTES W SCROTAL DOPPLER LTD [...] large bilateral hydroceles. us Thom George Sr., HADOOP JAVA DEVELOPER US ORDERABLES F inal Result documented in this encounter Visit Diagnoses Diagnosis Testicular abnormality- Primary Unspecified disorder of male genital organs Testicular abnormality Unspecified disorder of male genital organs documented in this encounter Additional Health Concerns Infection Onset Date Last Indicated Resolved Time COVID-19 01/16/2020 01/16/2020 02/05/2020 8:09 PM CDT COVID-19 02/07/2020 02/07/2020 03/08/2020 8:08 PM TRASH MAN documented as of this encounter Care Teams Mail Courier Relationship Specialty Start Date End Date Doris Morrison, VIJAY Brandon [address] [place] [address] PCP - General NURSE PRACTITIONER 01/27/15 documented as of this encounter
--- OUTSIDE RECORDS SUMMARY | 2025-03-13 16:10 | XMS_ITS | Encounter Summary ---
Author Organization [facility] Address [address] [place] [address] Care Team Providers Care Touch Up Carver Name Role Phone Doris Morrison, Thom LINARES Primary Care Pro vider Encounter Details Date Type Department Care Team (Late st Contact Info) Description 01/30/2020 Lab Requisition [facility] Laboratory Services [address] [place] [phone] Thom Vickers MD [address] [place] [phone] Social History Tobacco Use Types Packs/Day Years Used Date Smoking Tobacco: Never Smokeless Tobacco: Never Alcohol Use Standard Drinks/Week Comments No 0 (1 standard drink = 0.6 oz pur e alcohol) Sex and Gender Information Value Date Recorded Sex Assigned at Not on file 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 POTASSIUM 4.2 3.5 - 5.1 mmol/L 01/30/2020 5:46 AM T [facility] CHLORIDE 99 98 - 107 mmol/L 01/30/2020 5:[address] [facility] CO2 21(L) 22 - 29 mmol/L 01/30/2020 5:[address] [facility] CALCIUM 7.9(L) 8.8 - 10.2 mg/dL 01/30/2020 5:[address] [facility] BUN 30(H) 8 - 23 mg/dL 01/30/2020 5:[address] [facility] CREATININE 0.87 0.67 - 1.17 mg/dL 01/30/2020 5:[address] [facility] Comment:The GFR result is no t clinically significant on patients <18 or >70 years of age. GLUCOSE 110(H) 74 - 99 mg/dL 01/30/2020 5:[address] [facility] GFR >60 mL/min/1.7 3 sq meter 01/30/2020 5:[address] [facility] Comment: eGFR has not been [...] 3 sq meter 01/30/2020 5:46 AM T [facility] ANION GAP 10 9 - 20 mmol/L 01/30/2020 5:[address] 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
--- OUTSIDE RECORDS SUMMARY | 2025-03-13 16:10 | XMS_ITS | Encounter Summary ---
Author Organization [facility] Address [address] [place] [address] Care Team Providers Care Associate Professor Of Engineering Name Role Phone VIJAY Georeg Sr., Michael Dave Primary Care Pro vider Encounter Details Date Type Department Care Team (Latest Contact Info) Description 04/15/2003 Outpatient Historical [facility]- [address] [place] [address] Debi Chandra MD NO ADDRESS ON FILE ACUTE BRONCHITIS (Primary Dx) Social History Tobacco Use Types Packs/Day Years Used Date Smoking Tobacco: Never Assessed Sex and Gender Information Value Date Recorded Sex Assigned at Not on file 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 Gender Identity Not on file Sexual Orientation Not on file documented as of this encounter Plan of Treatment Not on file documented as of this encounter Visit Diagnoses Diagnosis Acute bronchitis- Primary documented in this encounter Additional Health Concerns Infection Onset Date Last Indicated Resolved Time COVID-19 01/16/2020 01/16/2020 02/05/2020 8:09 PM CDT COVID-19 02/07/2020 02/07/2020 03/08/2020 8:08 PM MANAGER OF TAX documented as of this encounter Care Teams Associate Professor Of Engineering Relationship Specialty Start Date End Date Thom George Sr., FNP [address] [place] [address] PCP - General NURSE PRACTITIONER 01/27/15 documented as of this encounter
[2025-03-14] VITALS (10 sets, daily range): BP systolic 158–207; BP diastolic 74–102; PULSE 41–63; RESP 16–22; TEMP 35.9–36.3; O2SAT 94–97
[2025-03-14] MEDS: multivitamin therapeutic Tablet 1 TAB PO (04:05)
[2025-03-14] MEDS: neomycin-poly-dex Op 5 mL Btl 1 DROP EYE-BOTH (04:08)
[2025-03-14] MEDS: dorzolamide/timolol Op Soln 10 mL Btl 1 DROP EYE-BOTH (04:08)
--- NOTE | 2025-03-14 08:03 | USCV_ITS ---
Jong Higuera Age: 85 Gender: M : 1940 Exam Date: 03/14/2025 12:50 Ordering Phys: Je Wang MD Technologist: RICK Exam Location: [facility] Indication: José Manuel. HTN BP: 180 / 90 HR: 66 Rhythm: Sinus Technical Quality: Adequate MEASUREMENTS (Male / Female) Normal Values 2D ECHO LV Diastolic Diameter PLAX 6.5 cm 4.2 - 5.9 / 3.9 - 5.3 cm IVS Diastolic Thickness 0.8 cm 0.6 - 1.0 / 0.6 - 0.9 cm IVS Systolic Thickness 1.0 cm LVPW Diastolic Thickness 1.0 cm 0.6 - 1.0 / 0.6 - 0.9 cm LVPW Systolic Thickness 1.0 cm LVOT Diameter 2.0 cm LV Ejection Fraction 2D Teich 18.1 % LV Ejection Fraction MOD 4C 49.4 % LV Ejection Fraction MOD 2C 53.6 % LV Ejection Fraction 2C AL 55.4 % LA Diameter 4.0 cm RA Systolic Volume 4C AL 54.1 ml RA Systolic Volume 4C MOD 52.5 ml LA Sys Volume AL 57.4 cm cubed LA Sys Volume Index AL 28.1 cm cubed/m squared Aorta at Sinotubular Diameter 2.3 cm IVC Diameter 1.7 cm M-MODE LA Ao Ratio MM 1.8 AV Cusp Separation MM 1.5 cm DOPPLER AV Peak Velocity 171.0 cm/s LVOT Peak Velocity 107.0 cm/s AV Area Cont Eq vti 2.1 cm squared AV Area Cont Eq pk 2.1 cm squared MV Area PHT 4.7 cm squared Mitral E to A Ratio 1.2 TR Peak Velocity 146.0 cm/s TR Peak Gradient 8.5 mmHg TV Peak E Velocity 75.0 cm/s PV Peak Velocity 98.0 cm/s FINDINGS Left Ventricle Mildly dilated left ventricle cavity. Mild global hypokinesis, estimated LVEF 52%. Right Ventricle Normal right ventricular size and systolic function. Right Atrium Mildly increased right atrial size. Left Atrium Mildly increased left atrial size. IA Septum Normal interatrial septum. Mitral Valve Mildly thickened mitral valve. Moderate mitral valve regurgitation. Aortic Valve Thickened aortic valve. Mild aortic valve regurgitation. Tricuspid Valve Structurally normal tricuspid valve. Trace tricuspid valve regurgitation. Normal estimated pulmonary pressure (15 mmHg). Pulmonic Valve Mild pulmonary valve regurgitation. Pericardium No pericardial effusion. Aorta Normal size aortic root and proximal ascending aorta. IVC Normal IVC dimension with >50% respiratory change of the inferior vena cava. CONCLUSIONS 1. Mildly dilated left ventricle cavity with mild global hypokinesis. Estimated LVEF 52% 2. Moderate MR with mildly dilated left atrium. 3. Mild TR and mild AR. 4. Normal RV size and systolic function. 5. Normal pulmonary pressures. Kendell Bryant MD (Electronically Signed) Final Date: 14 March 2025 13:45 S
--- NOTE | 2025-03-14 09:51 | PC.CHAP ---
Pastoral Care Encounter/Spiritual Assessment Type of Contact [] Declined implementation coordinator visit [] Patient/Family/Request visit [] Outpatient visit [] Follow-up visit [] Physician referral [] Code/Alert [x] Routine visit [] Staff referral [] Actively dying [] Patient sleeping [x] Family support [] [] Out of room [] Palliative care [] [] Receiving care in room [] Pre-surgical visit [] Trauma [] Long length of stay [] ICU visit [] Other: Relational/Emotional Strength [] Patient feels connected with others/family/visitors/staff [] Distress [] Loneliness/isolation [] Abandonment Spirituality of Patient [x] Person of Adry [x] Attends Pentecostalism of their Adry [x] Believes in Prayer [x] Reads Bible or Taoism materials [] There are Spiritual issues to be addressed [employer] Systems Superintendent Interventions [x] Prayer [x] Active listening [] Non-anxious presence [] Spiritual/emotional support [] Crisis/trauma care [] Spiritual counseling [] Bereavement support [] Provided bereavement packet [x] Provided Bible/devotional materials [] Provided toy/stuffed animal, coloring book to patient or family member [] Provided Communion [] Anointing/[place] [] Salvation [x] Completed spiritual assessment [] Other: Impact on Illness or Injury [] Angry [] Fearful [] Anxious [] Often cries [] Exhaustion [] Unable to work [] Unable to attend mormon [] Unable to walk/stand [] Unable to read [] Unable to drive [] Unable to eat/drink [] Unable to sleep [] Unable to be with family [] Patient intubated [] Other: Summary Time spent with patient 20 min
--- NOTE | 2025-03-14 13:46 | PC.NURSE ---
BP rechecked an hour after pt took 5 mg lisinopril at noon, it is 166/77, HR-57, he is up and walking down hallways. Pt denies any chest pain or discomfort, shortness of breath or dizziness. Echo has been taken just few mins ago. Notified Hospitalist.
--- NOTE | 2025-03-14 14:14 | PM.DCS ---
Discharge Providers Date of Admission: 03/13/25 12:21 Date of Discharge: March 14, 2025 Attending Provider at Admission: Je Wang Attending Provider at Discharge: Je Wang Primary Care Provider: Thom Schroeder Diagnoses at Discharge Discharge Diagnosis 1. Hypertensive urgency: Reason for Visit Reason for Visit: high bp Brief History: Jong Higuera is a 85 year old gentleman with a history of atrial fibrillation, congestive heart failure with previously normal ejection fraction (2020) and grade 2 diastolic dysfunction, mild pulmonary hypertension, coronary artery disease with prior cardiac stents (2014), obstructive sleep apnea, hypertension, and benign prostatic hyperplasia who presented to the emergency department due to elevated blood pressure. Reports generalized weakness and low energy for several months. Denies chest pain, pressure, fever, chills, sore throat, runny nose, sneezing, nausea, vomiting, or diarrhea. Has not tolerated continuous positive airway pressure (CPAP) for sleep apnea; prior sleep study approximately 10?12 years ago. In the emergency department, initial blood pressure was as high as 224/122 mmHg with bradycardia noted, heart rate down to 37 beats per minute. Electrocardiogram showed sinus bradycardia with first-degree atrioventricular block, premature atrial contractions, right axis deviation, and right bundle branch block. Chest radiograph showed no acute cardiopulmonary findings. Reported respiratory rate 17, temperature 98?F, and oxygen saturation 94% on room air. Laboratory panels including complete blood count, basic metabolic parameters (sodium, potassium, chloride, bicarbonate, blood urea nitrogen, creatinine), liver function tests (total bilirubin, aspartate aminotransferase, alanine aminotransferase, alkaline phosphatase), and total protein/albumin/globulin were within normal limits. NT-proBNP 3945. In the emergency department he received clonidine 0.1 mg. QTc in the emergency department noted at 485 ms. Home medications include sotalol 80 mg by mouth twice daily, tamsulosin, tadalafil, finasteride, dorzolamide eye drops, and a multivitamin. He started the new medication (sotalol) last Friday and has taken approximately five doses; notes his heart rate has been running low (38?40 bpm). Prior COVID-19 hospitalization during which atrial fibrillation occurred. Prior code status documented as full code in 2020. Code status conversation today: he does not want chest compressions (concerned about rib fractures) if cardiac arrest occurs; is amenable to measures such as temporary ventilatory support, cardioversion/defibrillation, or pacemaker if needed. He inquired about the chest x-ray; was informed it was without pneumonia or acute findings. Plans and considerations discussed included holding/discontinuing sotalol, checking thyroid studies, monitoring heart rate and blood pressure, initiating a different antihypertensive (e.g., lisinopril) that would not further slow heart rate, possible repeat sleep study and retrying CPAP with a nasal interface, and possibly obtaining a repeat echocardiogram. Disposition discussed as potential discharge the following day if stable. Hospital Course Hospital Course His blood pressures and heart rates were monitored, he was initiated on lisinopril for additional blood pressure control without slowing down the heart rate. No pauses noted overnight. Heart rates improved up to 50s-60s. Occasional dips into 40s, although without symptoms at current time. With noted RBBB, first-degree block, discussed with him and his family at some point may end up progressing to needing a pacemaker. At this time as discussed with him and his family sotalol is discontinued due to bradycardia and QT prolongation. He is asked to follow-up with cardiology for additional assessment of consideration of antiarrhythmic medication. Revisited with him regarding restarting aspirin due to history of coronary disease with presence of coronary stents. Today also discussed regarding anticoagulation with atrial fibrillation and stroke with his risk factors, however, he would rather not start this currently as discussed with him and his nurse, but would prefer to follow-up and visit again with his primary provider and cardiology, but is agreeable to continue on aspirin. Echocardiogram was obtained and he is found to have borderline low normal ejection fraction 52%, as well as finding of moderate mitral regurgitation, and as discussed with him due to this we will also follow-up with cardiology. Please refer him for a sleep study due to suspected sleep apnea which may be contributing to his difficulties with hypertension. Physical Exam Narrative: Ambulating in the room. Const: COMMON NORMALS: patient oriented x3 and alert GENERAL APPEARANCE: cooperative ORIENTATION/CONSCIOUSNESS: Yes awake HENMT: COMMON NORMALS: oropharynx normal Neck/C-Spine: COMMON NORMALS: no JVD Resp: COMMON NORMALS: normal respiratory effort and clear to auscultation bilaterally AUSCULTATION: clear to auscultation bilaterally Cardio: COMMON NORMALS: no JVD, regular rhythm, S1 normal heart sound present, S2 normal heart sound present and No murmurs present (Cardio) RHYTHM: regular rhythm HEART SOUNDS: S1 normal heart sound present and S2 normal heart sound present GI: COMMON NORMALS: Normal to inspection, nondistended, normoactive bowel sounds present, Soft to palpation and non-tender PALPATION: Yes Soft to palpation Extremity: COMMON NORMALS: no joint enlargement and no pedal edema Neuro: COMMON NORMALS: patient oriented x3 and moves all extremities SENSORIUM/ORIENTATION: Yes alert Skin: COMMON NORMALS: no rashes or lesions noted GENERAL SKIN EXAM: no rashes or lesions noted Discharge Data Studies Completed and Pending Completed Studies During Hospitalization Category Date Time Status XR chest 1V portable [id number] Stat Exams 03/13/25 09:32 Completed CV. echo complete* [id number] Routine Ultrasound 03/14/25 08:03 Completed Radiology Impressions Chest X-Ray 03/13/25 09:32 IMPRESSION: No acute cardiopulmonary findings. Laboratory Results WBC 8.06 10^3/uL (3.29-11.43) 03/13/25 09:42 RBC 4.81 10^6/uL (3.85-5.65) 03/13/25 09:42 Hgb 15.20 g/dL (11.27-16.99) 03/13/25 09:42 Hct 44.6 % (37-53) 03/13/25 09:42 MCV 92.7 fl (82-101) 03/13/25 09:42 MCH 31.6 pg (27-33) 03/13/25 09:42 MCHC 34.1 g/dL (30-55) 03/13/25 09:42 RDW 11.9 % (12.1-15.1) L 03/13/25 09:42 Plt Count 219 10^3/cmm (157-399) 03/13/25 09:42 MPV 10.1 fL (7.4-10.4) 03/13/25 09:42 Neut % (Auto) 70.0 % 03/13/25 09:42 Lymph % (Auto) 16.1 % 03/13/25 09:42 [place] % (Auto) 9.8 % 03/13/25 09:42 Eos % (Auto) 3.1 % 03/13/25 09:42 Baso % (Auto) 0.5 % 03/13/25 09:42 Neut # (Auto) 5.64 10^3/uL (1.8-7.7) 03/13/25 09:42 Lymph # (Auto) 1.3 10^3/uL (0.8-4.8) 03/13/25 09:42 [place] # (Auto) 0.8 10^3/uL (0.2-0.9) 03/13/25 09:42 Eos # (Auto) 0.3 10^3/uL (0.0-0.8) 03/13/25 09:42 Baso # (Auto) 0.0 10^3/uL (0.0-0.1) 03/13/25 09:42 Nucleated RBC % (auto) 0 % 03/13/25 09:42 Nucleated RBCs # 0.0 /100WBC 03/13/25 09:42 Sodium 140 mmol/L (136-145) 03/13/25 09:42 Potassium 4.6 mmol/L (3.5-5.1) 03/13/25 09:42 Chloride 105 mmol/L (98-107) 03/13/25 09:42 Carbon Dioxide 25 mmol/L (22-29) 03/13/25 09:42 Anion Gap 14.6 (5-19) 03/13/25 09:42 BUN 17 mg/dL (8-23) 03/13/25 09:42 Creatinine 1.1 mg/dL (0.7-1.2) 03/13/25 09:42 GFR Calculation Not Reportable 03/13/25 09:42 Glucose 99 mg/dL (65-115) 03/13/25 09:42 Calculated Osmolality 292 mOsm/kg (285-295) 03/13/25 09:42 Calcium 9.8 mg/dL (8.5-10.5) 03/13/25 09:42 Magnesium 1.8 mg/dL (1.7-2.3) 03/13/25 11:42 Total Bilirubin 0.7 mg/dL (0.15-1.2) 03/13/25 09:42 AST 18 U/L (0-40) 03/13/25 09:42 ALT 14 U/L (0-41) 03/13/25 09:42 Alkaline Phosphatase 76 U/L (40-130) 03/13/25 09:42 Troponin T Baseline 17 ng/L (0-15) H 03/13/25 09:42 Troponin T 120 Minute 14.93 ng/L (0-15) 03/13/25 11:42 Delta Troponin T -2.07 ABS# (0-10) L 03/13/25 11:42 Troponin T Hi Sens 6Hr 15.09 ng/L (0-15) H 03/13/25 15:00 Troponin T Hi Sens 6Hr Delta -1.91 ng/L (0-12) L 03/13/25 15:00 NT-Pro-B Natriuret Pep 3945 pg/mL (0-450) H 03/13/25 09:42 Total Protein 6.6 g/dL (6.6-8.7) 03/13/25 09:42 Albumin 4.5 g/dL (3.5-5.2) 03/13/25 09:42 Globulin 2.1 g/dL (1.3-4.6) 03/13/25 09:42 TSH 2.37 uIU/mL (0.27-4.20) 03/13/25 11:42 Urine Color Dark yellow (Yellow) A 03/13/25 12:18 Urine Appearance Clear (CLEAR) 03/13/25 12:18 Urine pH 6.0 (5-7) 03/13/25 12:18 Ur Specific [place] 1.019 (1.005-1.030) 03/13/25 12:18 Urine Protein Negative (Negative) 03/13/25 12:18 Urine Glucose (UA) Negative (Normal) 03/13/25 12:18 Urine Ketones Negative (Negative) 03/13/25 12:18 Urine Blood Negative (Negative) 03/13/25 12:18 Urine Nitrate Negative (Negative) 03/13/25 12:18 Urine Bilirubin Negative (Negative) 03/13/25 12:18 Urine Urobilinogen 1.0 mg/dL (Negative) 03/13/25 12:18 Ur Leukocyte Esterase Negative (Negative) 03/13/25 12:18 Urine RBC 0-2 /hpf (0-2) 03/13/25 12:18 Urine WBC 0-5 /hpf (0-5) 03/13/25 12:18 Ur Squamous Epith Cells 0-5 /hpf (0-5) 03/13/25 12:18 Amorphous Sediment Not Reportable 03/13/25 12:18 Urine Bacteria None seen /hpf (NONE) 03/13/25 12:18 Hyaline Casts 0-4 /lpf H 03/13/25 12:18 Vitals Last Vital Signs Temp 96.8 F L 03/14/25 11:35 Pulse 56 L 03/14/25 13:31 Resp 18 03/14/25 11:35 BP 166/77 03/14/25 13:31 Pulse Ox 97 03/14/25 11:35 O2 Del Method Room Air 03/14/25 11:35 Discharge Plan Discharge Patient Disposition: Home Condition: Stable Prescriptions: New lisinopril 5 mg Tablet 5 mg PO BID Qty: 180 0RF aspirin 81 mg Tablet,Delayed Release (Dr/Ec) 81 mg PO DAILY Qty: 90 0RF Continued dorzolamide-timolol 22.3-6.8 mg/mL drops 1 drp ophthalmic (eye) BID finasteride 5 mg tablet See Rx Instructions .ROUTE .COMPLEX Qty: 90 3RF Dose Instruction: Take 1 tablet by mouth once daily Rx Instructions: Take 1 tablet by mouth once daily tamsulosin 0.4 mg capsule See Rx Instructions .ROUTE .COMPLEX Qty: 180 3RF Dose Instruction: Take 2 capsules by mouth once daily Rx Instructions: Take 2 capsules by mouth once daily latanoprost 0.005 % drops 1 drp ophthalmic (eye) BEDTIME neomycin-polymyxin B-dexameth 3.5mg/mL-10,000 unit/mL-0.1 % drops,suspension See Rx Instructions .ROUTE .COMPLEX Rx Instructions: INSTILL 1 DROP INTO RIGHT EYE 4 TIMES DAILY FOR 7 DAYS THEN 3 TIMES DAILY FOR 7 DAYS, THEN TWICE DAILY FOR 7 DAYS, THEN DAILY FOR 7 DAYS, THEN STOP multivitamin with minerals Tablet 1 tab PO DAILY tadalafil 5 mg tablet 5 mg PO DAILY tadalafil 20 mg tablet 20 mg PO PRN Discontinued sotalol 80 mg tablet 80 mg PO BID Qty: 60 3RF Discharge Order = DC NOW: Discharge Order (Routine); Ordered 03/14/25 Ordered By: Je Wang Referrals: Thom Schroeder FNP [Primary Care Provider, Family Practice] - 03/22/25 9:40 am Referral Note: This appointment is scheduled with TYRELL [place] as Dr. Schroeder is out of office. Thank you. Jaime Mcdaniel MD [Physician, Cardiology] - 04/20/25 9:15 am Discharge Diet: Cardiac Discharge Activity: Increase activity as tolerated Patient Instructions: Lisinopril (By mouth), Aspirin (By mouth), Mitral Regurgitation (GEN), Chronic Hypertension (GEN), Hypertensive Crisis (GEN), Opioid Safety, Patient Portal & [place] Instructions Activity Restrictions/Additional Instructions: Please stop sotalol, other med continue your other medications. You are also started on aspirin due to coronary disease and presence of stents. Please measure blood pressures at home, long-term target blood pressure 120/80. You are started on lisinopril to help you control your blood pressure without slowing down your heart rate. Please have your primary doctor recheck your heart rates and blood pressure and continue optimize control. Aspirin will give you slight protection from stroke with atrial fibrillation, but with history of congestive heart failure and your age for blood thinner would give you better protection. Please revisit with your primary doctor. Please follow-up with cardiology in office regarding slow heart rate, premature ventricular beats, as well as moderate mitral regurgitation incidentally noted on echocardiogram. Fatigue. Please seek referral for sleep study with your primary doctor due to suspected sleep apnea likely contributing to your hypertension. Discharge Attestations Time Spent in Discharge Care*: greater than 30 min Quality Metrics Clinical Quality Measures [ No reported AMI, CVA or VTE this stay] Coding Level of Care Code 03214 Total time (in minutes) for Discharge: 55 Diagnoses Hypertensive urgency I16.0
--- NOTE | 2025-03-14 17:27 | PC.NURSE ---
Discharge to home Pt waited for his until 5 pm to pick him up due to her hair appointment. Notified hospitalist about his BP around 4:30 pm, it was 180s systolic. We rechecked his BP prior to dc and it was 158, nurse already discussed his discharge paperworks and left the facility. Noted one time order of PO hydralazine by hospitalist as ordered, notified hospitalist that it was not given due to pt left the facility and BP was rechecked prior to dc was 158/74 manually.
== END 2025-03-14 17:00 | disposition home or self-care (01) ==
LOC: ER 12:29 → CSU 12:46
PROVIDERS: Physician Assistant; Admitting Provider Internal Medicine; Emergency Provider Emergency Medicine; PCP Nurse Practitioner Family; Visit Provider Internal Medicine
DX: I16.0 Hypertensive urgency (principal); I48.91 Unspecified atrial fibrillation; I11.0 Hypertensive heart disease with heart failure; I50.9 Heart failure, unspecified; E78.5 Hyperlipidemia, unspecified; I25.10 Atherosclerotic heart disease of native coronary artery without angina pectoris; G47.33 Obstructive sleep apnea (adult) (pediatric)
CPT/HCPCS: 36415; 71045; 80053; 81001; 83735; 83880; 84443; 84484; 85025; 93005; 93306; 99285; G0378; J9999

== ENCOUNTER → 2025-04-20 09:17 | Outpatient (BNVA) | payer MEDICARE, SELFPAY | PROVIDERS: PCP Registered Nurse; Visit Provider Internal Medicine Cardiovascular Disease | DX: R00.1 Bradycardia, unspecified (principal); Z51.89 Encounter for other specified aftercare; I34.0 Nonrheumatic mitral (valve) insufficiency; I10 Essential (primary) hypertension; G47.33 Obstructive sleep apnea (adult) (pediatric); I48.0 Paroxysmal atrial fibrillation; Z79.82 Long term (current) use of aspirin; I25.10 Atherosclerotic heart disease of native coronary artery without angina pectoris; Z95.5 Presence of coronary angioplasty implant and graft; R09.89 Other specified symptoms and signs involving the circulatory and respiratory systems; G47.19 Other hypersomnia; R07.9 Chest pain, unspecified; I45.10 Unspecified right bundle-branch block; R94.31 Abnormal electrocardiogram [ECG] [EKG] | CPT/HCPCS: 93005; 99204 ==

== ENCOUNTER → 2025-04-20 10:12 | Outpatient (BNVA) | payer MEDICARE, SELFPAY | PROVIDERS: PCP Registered Nurse; Visit Provider Internal Medicine Cardiovascular Disease | DX: R09.89 Other specified symptoms and signs involving the circulatory and respiratory systems (principal); I48.91 Unspecified atrial fibrillation; I49.8 Other specified cardiac arrhythmias; I45.4 Nonspecific intraventricular block; I49.1 Atrial premature depolarization; I49.3 Ventricular premature depolarization; I47.20 Ventricular tachycardia, unspecified | CPT/HCPCS: 93246 ==